=== PATIENT | female | born 1955 | race Caucasian/White ===

== ENCOUNTER 2019-09-26 09:31 | Emergency (ER) | payer OTHER ==
--- OUTSIDE RECORDS SUMMARY | 2019-09-26 09:34 | XMS REPORT ---
:1955 Author Organization [employer] Care Team Providers Name Role Phone Vignesh Stoddard Provider Role Unavailable Allergies No Known Allergies Problems Problem Type Condition Code Onset Dates Condition Status Problem Morbid obesity due to excess E66.01 Active calories Problem Left sciatic nerve pain M54.32 Active Problem Primary osteoarthritis of both M17.0 Active knees Problem Vaginal atrophy N95.2 Active Problem Pain in female genitalia on N94.10 Active intercourse Problem Arthritis of left knee M17.12 Active Problem Pain in joint of left knee M25.562 Active Medications No Known Medications Results No Known Results Summary Purpose [employer] Submission
[2019-09-26] MEDS ORDERED: NA CHLORIDE 0.9% 1,000 ML ONE (10:24)
[2019-09-26] MEDS ORDERED: IPRATROPIUM BROM 0.5MG/2.5ML ONE (10:24)
[2019-09-26] MEDS ORDERED: LEVALBUTEROL 1.25 MG/3 ML NEB ONE (10:24)
[2019-09-26 10:37] LABS: Absolute Lymphocytes (CBC) 1.2 K/uL (0.7-4.9); Basophils % 0.8 % (0-1.3); Hematocrit 38.3 % (36.0-45.0); Lymphocytes % 18.8 % (15.3-44.8); MPV 9.9 fL (7.6-11.3); RBC Red Blood Cell Count 4.27 M/uL (3.86-4.86)
--- NOTE | 2019-09-26 10:38 | RAD REPORT ---
EXAM DESCRIPTION: Roman Single View09/26/2019 10:25 am CLINICAL HISTORY: Cough COMPARISON: 2015 FINDINGS: The lungs appear clear of acute infiltrate. The heart is normal size IMPRESSION: No acute abnormalities displayed
[2019-09-26 10:42] LABS: Protime INR 0.97
[2019-09-26 10:54] LABS: ALT/SGPT 26 U/L (12-78); AST/SGOT 19 U/L (15-37); Albumin 3.5 g/dL (3.4-5.0); Alkaline Phosphatase 57 U/L (45-117); BUN Blood Urea Nitrogen 17 mg/dL (7-18); Bicarbonate 26 mmol/L (21-32); Bilirubin Direct < 0.1 mg/dL (0-0.2); Bilirubin Total 0.3 mg/dL (0.2-1.0); Glucose Level 116 mg/dL (74-106); Magnesium 1.7 mg/dL (1.8-2.4); NT PRO-BNP 55 pg/mL (<125); Potassium 3.9 mmol/L (3.5-5.1); Protein, Total 7.4 g/dL (6.4-8.2); Sodium Level 142 mmol/L (136-145); Troponin (Emerg Dept Use Only) < 0.02 ng/mL (0.0-0.045)
[2019-09-26 11:03] LABS: Urine Blood TRACE (NEG); Urine Glucose 2+ (NEG); Urine Protein NEGATIVE (NEG); Urine Specific Gravity 1.025 (1.005-1.030); Urine pH 5.5 (5.0-7.0)
[2019-09-26] MEDS ORDERED: MAGNESIUM SULFATE 1 gm IVPB 1 GM/100 ML BAG IV ONE (11:29)
--- NOTE | 2019-09-26 11:32 | RAD REPORT ---
EXAM DESCRIPTION: CT - Soft Tissue Neck W/Contr - 09/26/2019 11:16 am CLINICAL HISTORY: Neck pain with sore throat COMPARISON: None. TECHNIQUE: Computed axial tomography of the neck was obtained. 50 cc Isovue 300 was administered in travenously. Coronal and sagittal reconstruction was performed. All CT scans are performed using dose optimization technique as appropriate and may include automated exposure control or mA/KV adjustment according to patient size. FINDINGS: There is questionable small amount of soft tissue within the right vallecula. Remainder of the pharynx, tongue base, larynx and subglottic trachea appear unremarkable The parotid, submandibular and thyroid glands appear unremarkable. No lymphadenopathy is seen The sinuses and mastoids are clear. IMPRESSION: Questionable small amount of soft tissue within the right vallecula. Often this is secon jairon to incomplete distention. A subtle mass can also result in this appearance. Followup imaging wit h the patient prone can sometimes differentiate between the 2 possibilities. Otherwise unremarkable exam
--- NOTE | 2019-09-26 12:12 | ER ---
Nurse's Notes [facility] Name: Celeste Samaniego Age: 64 yrs Sex: Female : 1955 Arrival Date: 09/26/2019 Time: 09:34 Bed 4 Private MD: Diagnosis: Acute pharyngitis;Type 2 diabetes mellitus;Hypomagnesemia;Influenza due to certain identified influenza viruses Presentation: 09/26 09:47 Presenting complaint: Patient states: Diagnosed with the flu 2 days ago, but throat ss swelling and difficulty breathing that began 2 days ago. Transition of care: patient was not received from another setting of care. Onset of symptoms was September 25, 2019. Risk Assessment: Do you want to hurt yourself or someone else? Patient reports no desire to harm self or others. Initial Sepsis Screen: Does the patient meet any 2 criteria? No. Patient's initial sepsis screen is negative. Does the patient have a suspected source of infection? No. Patient's initial sepsis screen is negative. Care prior to arrival: None. 09:47 Acuity: KITA 3 ss 09:47 Method Of Arrival: Ambulatory ss Historical: - Allergies: 09:50 Codeine; ss 09:50 mushrooms; ss - PMHx: 09:50 Diabetes - NIDDM; Hyperlipidemia; Hypertension; Hypothyroidism; ss - PSHx: 09:50 knee replacement; ss - Immunization history:: Adult Immunizations up to date. - Social history:: Smoking status: Patient/guardian denies using tobacco. - Ebola Screening: : Patient denies exposure to infectious person Patient denies travel to an Ebola-affected area in the 21 days before illness onset. - Family history:: not pertinent. Screenin:39 Abuse screen: Denies threats or abuse. Denies injuries from another. Nutritional ph screening: No deficits noted. Tuberculosis screening: No symptoms or risk factors identified. Fall Risk None identified. Assessment: 10:36 General: Appears in no apparent distress. comfortable, well groomed, Behavior is calm, ph cooperative, appropriate for age, Denies fever. Pain: Complains of pain in throat. Neuro: Level of Consciousness is awake, alert, obeys commands, Oriented to person, place, time, situation. Cardiovascular: Reports fatigue, shortness of breath, Denies chest pain, nausea, vomiting, Capillary refill < 3 seconds in bilateral fingers Patient's skin is warm and dry. Respiratory: Airway is patent Respiratory effort is even, unlabored, Respiratory pattern is regular, symmetrical, Breath sounds are clear bilaterally. Denies cough. GI: Patient currently denies abdominal pain, diarrhea, nausea, vomiting. EENT: Reports pain when swallowing. Derm: Skin is intact, is healthy with good turgor, Skin is pink, warm \T\ dry. Musculoskeletal: Circulation, motion, and sensation intact. Range of motion: intact in all extremities. 11:30 Reassessment: Patient appears in no apparent distress at this time. Patient and/or ph family updated on plan of care and expected duration. Pain level reassessed. Patient is alert, oriented x 3, equal unlabored respirations, skin warm/dry/pink. 12:18 Reassessment: Patient appears in no apparent distress at this time. Patient and/or ph family updated on plan of care and expected duration. Pain level reassessed. Patient is alert, oriented x 3, equal unlabored respirations, skin warm/dry/pink. D/C pending completion of IV meds. 12:37 Reassessment: Patient appears in no apparent distress at this time. awaiting IV sg medication to complete infusion prior to discharge to home. Vital Signs: 09:50 BP 134 / 54; Pulse 90; Resp 16; Temp 97.7(TE); Pulse Ox 97% ; Weight 99.79 kg; Height 5 ss ft. 3 in. (160.02 cm); Pain 6/10; 10:41 BP 123 / 53; Pulse 78; Resp 18; Pulse Ox 100% on Nebulizer Mask; ph 12:18 BP 128 / 56; Pulse 76; Resp 18; Temp 97.8; Pulse Ox 98% on R/A; ph 13:30 BP 127 / 58; Pulse 77; Resp 18; Temp 97.5; Pulse Ox 99% on R/A; ph 09:50 Body Mass Index 38.97 (99.79 kg, 160.02 cm) ED Course: 09:34 Patient arrived in ED. ag5 09:48 Emerson Crouch MD is Attending Physician. latrice 09:49 Triage completed. ss 09:50 Arm band placed on right wrist. 09:56 Betty Moore RN is Primary Nurse. ph 10:15 Inserted saline lock: 22 gauge in right antecubital area, using aseptic technique. ph 10:23 XRAY Chest (1 view) In Process Unspecified. EDMS 10:40 Patient has correct armband on for positive identification. Placed in gown. Bed in low ph position. Call light in reach. Side rails up X 1. Pulse ox on. NIBP on. Door closed. Warm blanket given. Pillow given. 10:44 No provider procedures requiring assistance completed. ph 11:16 Soft Tissue Neck W/Contr CT In Process Unspecified. EDMS Administered Medications: 10:30 Drug: Xopenex 1.25 mg Route: Inhalation; ph 12:19 Follow up: Response: No adverse reaction ph 10:30 Drug: AtroVENT Aerosol 0.5 mg Route: Inhalation; ph 12:19 Follow up: Response: No adverse reaction ph 10:31 Drug: NS 0.9% 1000 ml Route: IV; Rate: 1 bolus; Site: right antecubital; ph 12:19 Follow up: Response: No adverse reaction; IV Status: Completed infusion ph 12:10 Drug: Magnesium Sulfate 1 grams Route: IVPB; Infused Over: 1 hrs; Site: right sg antecubital; 13:26 Follow up: Response: No adverse reaction; IV Status: Completed infusion sg 12:10 Drug: Decadron - Dexamethasone 10 mg Route: IVP; Site: right antecubital; sg 12:40 Follow up: Response: No adverse reaction sg 12:10 Drug: Rocephin 1 grams Route: IV; Rate: per protocol; Site: right antecubital; sg 13:00 Follow up: Response: No adverse reaction; IV Status: Completed infusion sg Outcome: 12:12 Discharge ordered by MD. pollard 13:43 Patient left the ED. sg 13:43 Discharged to home ambulatory, with significant other. ph 13:43 Condition: good 13:43 Discharge instructions given to patient, Instructed on discharge instructions, follow up and referral plans. medication usage, Demonstrated understanding of instructions, follow-up care, medications, Prescriptions given X 4. Signatures: Dispatcher [employer] EDMS Donald Graves, Emerson Rutledge RN, MD MD cha Smirch, Shelby, RN RN Betty Moore RN RN Ginny Bernal ag5
--- NOTE | 2019-09-26 12:12 | EDPHYS ---
Physician Documentation [facility] Name: Celeste Samaniego Age: 64 yrs Sex: Female : 1955 Arrival Date: 09/26/2019 Time: 09:34 Bed 4 Private MD: ED Physician Emerson Crouch HPI: 09/26 10:07 This 64 yrs old Female presents to ER via Ambulatory with complaints of Flu latrice Symptoms, Breathing Difficulty. 10:07 The patient has shortness of breath at rest, with light activity. Onset: The latrice symptoms/episode began/occurred 3 day(s) ago. Duration: The symptoms are continuous, and are steadily getting worse. The patient's shortness of breath is aggravated by nothing, is alleviated by nothing. Associated signs and symptoms: Pertinent positives: non-productive cough, dizziness. Severity of symptoms: At their worst the symptoms were mild moderate in the emergency department the symptoms are unchanged. The patient has experienced similar episodes in the past, a few times. Historical: - Allergies: 09:50 Codeine; ss 09:50 mushrooms; ss - PMHx: 09:50 Diabetes - NIDDM; Hyperlipidemia; Hypertension; Hypothyroidism; ss - PSHx: 09:50 knee replacement; ss - Immunization history:: Adult Immunizations up to date. - Social history:: Smoking status: Patient/guardian denies using tobacco. - Ebola Screening: : Patient denies exposure to infectious person Patient denies travel to an Ebola-affected area in the 21 days before illness onset. - Family history:: not pertinent. ROS: 10:07 Constitutional: Negative for fever, chills, and weight loss, Eyes: Negative for injury, latrice pain, redness, and discharge, ENT: Negative for injury, pain, and discharge, Cardiovascular: Negative for chest pain, palpitations, and edema, Abdomen/GI: Negative for abdominal pain, nausea, vomiting, diarrhea, and constipation, Back: Negative for injury and pain, : Negative for injury, bleeding, discharge, and swelling, MS/Extremity: Negative for injury and deformity, Skin: Negative for injury, rash, and discoloration, Neuro: Negative for headache, weakness, numbness, tingling, and seizure, Psych: Negative for depression, anxiety, suicide ideation, homicidal ideation, and hallucinations, Allergy/Immunology: Negative for hives, rash, and allergies, Endocrine: Negative for neck swelling, polydipsia, polyuria, polyphagia, and marked weight changes, Hematologic/Lymphatic: Negative for swollen nodes, abnormal bleeding, and unusual bruising. 10:07 Neck: Positive for pain at rest, swelling, tenderness. 10:07 Respiratory: Positive for cough, "sounds productive". Exam: 10:07 Constitutional: This is a well developed, well nourished patient who is awake, alert, latrice and in no acute distress. Head/Face: Normocephalic, atraumatic. Eyes: Pupils equal round and reactive to light, extra-ocular motions intact. Lids and lashes normal. Conjunctiva and sclera are non-icteric and not injected. Cornea within normal limits. Periorbital areas with no swelling, redness, or edema. Neck: Trachea midline, no thyromegaly or masses palpated, and no cervical lymphadenopathy. Supple, full range of motion without nuchal rigidity, or vertebral point tenderness. No Meningismus. Chest/axilla: Normal chest wall appearance and motion. Nontender with no deformity. No lesions are appreciated. Cardiovascular: Regular rate and rhythm with a normal S1 and S2. No gallops, murmurs, or rubs. Normal PMI, no JVD. No pulse deficits. Abdomen/GI: Soft, non-tender, with normal bowel sounds. No distension or tympany. No guarding or rebound. No evidence of tenderness throughout. Back: No spinal tenderness. No costovertebral tenderness. Full range of motion. Female : Normal external genitalia. Skin: Warm, dry with normal turgor. Normal color with no rashes, no lesions, and no evidence of cellulitis. 10:07 ENT: Mouth: Oral mucosa: moist, Gums: normal with healthy appearance, Tongue: is normal, abscess, is not appreciated, Posterior pharynx: Airway: normal, no evidence of obstruction, Tonsils: with erythema, Uvula: normal, midline, erythema, that is mild, Dental exam: normal, no avulsion, no cellulitis, no dental caries, no fractured teeth, no gum swelling, no injury, no malocclusion, no missing teeth, no pain, no trismus. Vital Signs: 09:50 BP 134 / 54; Pulse 90; Resp 16; Temp 97.7(TE); Pulse Ox 97% ; Weight 99.79 kg; Height 5 ss ft. 3 in. (160.02 cm); Pain 6/10; 10:41 BP 123 / 53; Pulse 78; Resp 18; Pulse Ox 100% on Nebulizer Mask; ph 12:18 BP 128 / 56; Pulse 76; Resp 18; Temp 97.8; Pulse Ox 98% on R/A; ph 13:30 BP 127 / 58; Pulse 77; Resp 18; Temp 97.5; Pulse Ox 99% on R/A; ph 09:50 Body Mass Index 38.97 (99.79 kg, 160.02 cm) ss MDM: 09:48 Patient medically screened. [facility] 10:13 Data reviewed: vital signs, nurses notes, lab test result(s), EKG, radiologic studies, [facility] CT scan, plain films. 09/26 09:49 Order name: Basic Metabolic Panel; Complete Time: 11:07 [facility] 09/26 09:49 Order name: CBC with Diff; Complete Time: 11:07 [facility] 09/26 09:49 Order name: LFT's; Complete Time: 11:07 [facility] 09/26 09:49 Order name: Magnesium; Complete Time: 11:07 [facility] 09/26 09:49 Order name: NT PRO-BNP; Complete Time: 11:07 [facility] 09/26 09:49 Order name: PT-INR; Complete Time: 11:07 [facility] 09/26 09:49 Order name: Troponin (emerg Dept Use Only); Complete Time: 11:07 [facility] 09/26 09:49 Order name: XRAY Chest (1 view); Complete Time: 11:07 [facility] 09/26 10:07 Order name: Strep; Complete Time: 11:07 [facility] 09/26 10:07 Order name: Soft Tissue Neck W/Contr CT; Complete Time: 11:50 [facility] 09/26 10:14 Order name: Urine Dipstick--Ancillary (enter results); Complete Time: 11:07 09/26 11:01 Order name: Throat Culture EDCT 09/26 09:49 Order name: Cardiac monitoring; Complete Time: 09:57 [facility] 09/26 09:49 Order name: EKG - Nurse/Tech; Complete Time: 12:20 [facility] 09/26 09:49 Order name: IV Saline Lock; Complete Time: 10:31 [facility] 01/15 09:49 Order name: Labs collected and sent; Complete Time: 10:31 [facility] 09/26 09:49 Order name: O2 Per Protocol; Complete Time: 09:57 [facility] 09/26 09:49 Order name: O2 Sat Monitoring; Complete Time: 09:57 [facility] 09/26 09:49 Order name: Urine Dipstick-Ancillary (obtain specimen); Complete Time: 10:31 [facility] Administered Medications: 10:30 Drug: Xopenex 1.25 mg Route: Inhalation; ph 12:19 Follow up: Response: No adverse reaction ph 10:30 Drug: AtroVENT Aerosol 0.5 mg Route: Inhalation; ph 12:19 Follow up: Response: No adverse reaction ph 10:31 Drug: NS 0.9% 1000 ml Route: IV; Rate: 1 bolus; Site: right antecubital; ph 12:19 Follow up: Response: No adverse reaction; IV Status: Completed infusion ph 12:10 Drug: Magnesium Sulfate 1 grams Route: IVPB; Infused Over: 1 hrs; Site: right sg antecubital; 13:26 Follow up: Response: No adverse reaction; IV Status: Completed infusion sg 12:10 Drug: Decadron - Dexamethasone 10 mg Route: IVP; Site: right antecubital; sg 12:40 Follow up: Response: No adverse reaction sg 12:10 Drug: Rocephin 1 grams Route: IV; Rate: per protocol; Site: right antecubital; sg 13:00 Follow up: Response: No adverse reaction; IV Status: Completed infusion sg Disposition: 09/26/19 12:12 Discharged to Home. Impression: Acute pharyngitis, Type 2 diabetes mellitus, Hypomagnesemia, Influenza due to certain identified influenza viruses. - Condition is Stable. - Discharge Instructions: Hypomagnesemia, Influenza, Adult, Pharyngitis, Pharyngitis, [id number], Influenza, Adult, Czen-ax-[id number], Sore Throat, [id number]. - Prescriptions for Augmentin 875- 125 mg Oral Tablet - take 1 tablet by ORAL route every 12 hours for 10 days; 20 tablet. Zofran 4 mg Oral Tablet - take 1 tablet by ORAL route every 12 hours As needed; 20 tablet. Medrol (Armond) 4 mg Oral Tablets, Dose Pack - take 1 tablet by ORAL route as directed - follow package instructions; 1 packet. Tamiflu 75 mg Oral Capsule - take 1 tablet by ORAL route every 12 hours for 5 days; 10 tablet. - Medication Reconciliation Form, Thank You Letter, Antibiotic Education, Prescription Opioid Use form. - Follow up: Private Physician; When: 2 - 3 days; Reason: Recheck today's complaints, Continuance of care, Re-evaluation by your physician. - Problem is new. - Symptoms have improved. Signatures: Dispatcher [employer] EDMS Donald Graves RN RN Emerson Flores MD MD cha Smirch, Shelby, RN RN Betty Moore RN RN ph Corrections: (The following items were deleted from the chart) 13:43 12:12 09/26/2019 12:12 Discharged to Home. Impression: Acute pharyngitis; Type 2 sg diabetes mellitus; Hypomagnesemia; Influenza due to certain identified influenza viruses. Condition is Stable. Forms are Medication Reconciliation Form, Thank You Letter, Antibiotic Education, Prescription Opioid Use. Follow up: Private Physician; When: 2 - 3 days; Reason: Recheck today's complaints, Continuance of care, Re-evaluation by your physician. Problem is new. Symptoms have improved. latrice
[2019-09-26] MEDS ORDERED: dexAMETHasone 10 MG/ML VIAL ONE (12:21)
[2019-09-26] MEDS ORDERED: CEFTRIAXONE/SWI 1gm 1 GM/10 ML SYR ONE (12:21)
[2019-09-26 13:59] VITALS: BP 128/56; TEMP 97.8; O2SAT 98
== END 2019-09-26 13:43 | disposition home or self-care (01) ==
LOC: ER 09:31
DX: J10.89 Influenza due to other identified influenza virus with other manifestations (principal); E11.9 Type 2 diabetes mellitus without complications; E83.42 Hypomagnesemia; J02.9 Acute pharyngitis, unspecified; Z88.6 Allergy status to analgesic agent
CPT/HCPCS: 96365; 96361; 96368; 87070; 85025; 80048; 36415; 83735; 85610; 80076; 87081; 81003; 84484; 83880; 70491; 71045; 96375; 99284; Q9967; J3475; J1100; J0696; J7030

== ENCOUNTER 2019-10-01 04:53 | Emergency (ER) | payer OTHER ==
[2019-10-01] MEDS ORDERED: KETOROLAC 30 MG/ML INJ ONE (05:29)
[2019-10-01] MEDS ORDERED: MORPHINE 2 MG/ML SYR ONE (05:29)
[2019-10-01] MEDS ORDERED: NA CHLORIDE 0.9% 500 ML ONE ×2 (05:29→06:53)
[2019-10-01] MEDS ORDERED: ONDANSETRON 4 MG/2 ML VIAL ONE (05:29)
[2019-10-01] MEDS ORDERED: ETOMIDATE 20 MG/10 ML VIAL IV ONE (06:32)
[2019-10-01] MEDS ORDERED: MIDAZOLAM HCL 2 MG/2 ML INJ ONE ×2 (06:32)
--- NOTE | 2019-10-01 07:08 | ER ---
Nurse's Notes [facility] Name: Celeste Samaniego Age: 64 yrs Sex: Female : 1955 Arrival Date: 10/01/2019 Time: 04:55 Bed 5 Private MD: Diagnosis: Colles' fracture of right radius-reduced Presentation: 10/01 05:09 Presenting complaint: Patient states: she was drinking a glass of water before bed and bb her left knee buckled causing her to fall backward she reached out with her right arm and injured her right wrist pt denies LOC, denies hitting her head. Care prior to arrival: None. Mechanism of Injury: Fall from standing position. Trauma event details: Injury occurred in the [facility], Injury occurred: at home. Injury occurred: October 01, 2019. 05:09 Acuity: KITA 4 bb 05:09 Method Of Arrival: Wheelchair bb 05:13 Transition of care: patient was not received from another setting of care. Onset of bb symptoms was October 01, 2019. Risk Assessment: Do you want to hurt yourself or someone else? Patient reports no desire to harm self or others. Initial Sepsis Screen: Does the patient meet any 2 criteria? No. Patient's initial sepsis screen is negative. Does the patient have a suspected source of infection? No. Patient's initial sepsis screen is negative. Trauma Activation: Not Applicable Physician: ED Physician; Name: ; Notified At: ; Arrived At: Physician: General Surgeon; Name: ; Notified At: ; Arrived At: Physician: Radiology; Name: ; Notified At: ; Arrived At: Physician: Respiratory; Name: ; Notified At: ; Arrived At: Physician: Lab; Name: ; Notified At: ; Arrived At: Historical: - Allergies: 05:14 Codeine; bb 05:14 mushrooms; bb - PMHx: 05:14 Diabetes - NIDDM; Hyperlipidemia; Hypertension; Hypothyroidism; bb - Immunization history: Last tetanus immunization: unknown. - Social history:: Smoking status: Patient denies any tobacco usage or history of. - Ebola Screening: : No symptoms or risks identified at this time. - Family history:: not pertinent. Screenin:09 Abuse screen: Denies threats or abuse. Tuberculosis screening: No symptoms or risk bb factors identified. Primary Survey: 05:09 NO uncontrolled hemorrhage observed. A: The patient is alert. Airway: patent. bb Breathing/Chest: Respiratory pattern: regular, Respiratory effort: spontaneous, unlabored, Chest inspection: symmetrical rise and fall of the chest. Circulation: Heart tones present. Disability Alert. Exposure/Environment: All clothing and personal items were removed. Forensic evidence collection is not deemed to be indicated at this time. Items placed in patient belonging bag. 06:00 Reassessment Airway Airway Patent Oxygen No O2 Breathing/Chest Respiratory pattern jb4 Regular Respiratory effort Spontaneous Unlabored Circulation Color [place] Temperature Warm Dry. Secondary Survey: 05:09 Musculoskeletal: Reports pain in right wrist. bb Assessment: 05:10 General: Appears in no apparent distress. uncomfortable, Behavior is calm, cooperative, jb4 appropriate for age. Pain: Complains of pain in right wrist Pain does not radiate. Pain currently is 7 out of 10 on a pain scale. Quality of pain is described as throbbing. Neuro: Level of Consciousness is awake, alert, obeys commands, Oriented to person, place, time, situation. Cardiovascular: Patient's skin is warm and dry. Respiratory: Airway is patent Respiratory effort is even, unlabored, Respiratory pattern is regular, symmetrical. GI: No signs and/or symptoms were reported involving the gastrointestinal system. : No signs and/or symptoms were reported regarding the genitourinary system. EENT: No signs and/or symptoms were reported regarding the EENT system. Derm: Skin is intact, Skin is pink, warm \T\ dry. Musculoskeletal: Circulation, motion, and sensation intact. 06:00 Reassessment: Patient appears in no apparent distress at this time. Patient and/or jb4 family updated on plan of care and expected duration. Pain level reassessed. Patient is alert, oriented x 3, equal unlabored respirations, skin warm/dry/pink. 06:59 Reassessment: Patient appears in no apparent distress at this time. Patient and/or jb4 family updated on plan of care and expected duration. Pain level reassessed. Patient is alert, oriented x 3, equal unlabored respirations, skin warm/dry/pink. Conscious sedation initiated. Vital Signs: 05:09 BP 126 / 55; Pulse 65; Resp 16 S; Temp 97.8(O); Pulse Ox 99% on R/A; Weight 99.79 kg bb (R); Height 5 ft. 3 in. (160.02 cm) (R); Pain 8/10; 06:00 BP 140 / 61; Pulse 62; Resp 18; Pulse Ox 98% on R/A; jb4 07:00 BP 145 / 72; Pulse 66; Resp 11; Pulse Ox 100% on NC; jb4 05:09 Body Mass Index 38.97 (99.79 kg, 160.02 cm) bb Etlan Coma Score: 05:09 Eye Response: spontaneous(4). Verbal Response: oriented(5). Motor Response: obeys bb commands(6). Total: 15. 06:00 Eye Response: spontaneous(4). Verbal Response: oriented(5). Motor Response: obeys jb4 commands(6). Total: 15. Trauma Score (Adult): 05:09 Eye Response: spontaneous(1); Verbal Response: oriented(1); Motor Response: obeys bb commands(2); Systolic BP: > 89 mm Hg(4); Respiratory Rate: 10 to 29 per min(4); Etlan Score: 15; Trauma Score: 12 07:00 Eye Response: spontaneous(1); Verbal Response: oriented(1); Motor Response: obeys jb4 commands(2); Systolic BP: > 89 mm Hg(4); Respiratory Rate: 10 to 29 per min(4); Ari Score: 15; Trauma Score: 12 ED Course: 04:55 Patient arrived in ED. cl3 05:01 Emerson Crouch MD is Attending Physician. latrice 05:09 Patient has correct armband on for positive identification. Bed in low position. Call bb light in reach. Side rails up X 1. Adult w/ patient. Family accompanied patient. Pulse ox on. NIBP on. 05:09 Patient maintains SpO2 saturation greater than 95% on room air. bb 05:11 Triage completed. bb 05:14 Arm band placed on Patient placed in an exam room, on a stretcher, on pulse oximetry. bb 05:19 Naren Gardner, YVONNE is Primary Nurse. jb4 05:24 Inserted saline lock: 20 gauge in left antecubital area, using aseptic technique. bb 05:57 Wrist Right 3 View XRAY In Process Unspecified. EDMS 07:08 Bay Doyle MD is Referral Physician. latrice 07:13 Wrist Right 3 View XRAY: post reduc In Process Unspecified. EDMS Administered Medications: 05:38 Drug: NS 0.9% 500 ml Route: IV; Rate: bolus; Site: left antecubital; jb4 06:00 Follow up: Response: No adverse reaction; IV Status: Completed infusion; IV Intake: jb4 500ml 05:38 Drug: Zofran 4 mg Route: IVP; Site: left antecubital; jb4 06:00 Follow up: Response: No adverse reaction jb4 05:40 Drug: TORadol 30 mg Route: IVP; Site: left antecubital; jb4 07:29 Follow up: Response: No adverse reaction; Pain is decreased jb4 05:41 Drug: morphine 2 mg Route: IVP; Site: left antecubital; jb4 06:00 Follow up: Response: No adverse reaction; Pain is decreased; RASS: Alert and Calm (0) jb4 06:59 Drug: Versed 2 mg Route: IVP; Site: left antecubital; jb4 07:27 Follow up: Response: No adverse reaction jb4 07:00 Drug: Versed 1 mg {Note: Administered 1 mg per ED physician .} Route: IVP; Site: left [facility] antecubital; 07:27 Follow up: Response: No adverse reaction jb4 07:01 Drug: Etomidate 8 mg {Note: Administered 8 mg per ED physician.} Route: IVP; Site: left 4 antecubital; 07:27 Follow up: Response: No adverse reaction jb4 07:28 Not Given (Physician Discretion): Etomidate 10 mg IVP once jb4 Intake: 05:09 PO: 0ml; Total: 0ml. bb 06:00 IV: 500ml; Total: 500ml. jb4 Outcome: 07:08 Discharge ordered by MD. pollard 08:10 Patient left the ED. sg Signatures: Dispatcher [employer] EDMS Donald Graves RN RN sg Anderson, Corey, MD MD cha Ballard, Brenda, RN RN Naren Goode RN RN Margot Nickerson cl3
--- NOTE | 2019-10-01 07:09 | EDPHYS ---
Physician Documentation [facility] Name: Celeste Samaniego Age: 64 yrs Sex: Female : 1955 Arrival Date: 10/01/2019 Time: 04:55 Bed 5 Private MD: ED Physician Emerson Crouch HPI: 10/01 05:19 This 64 yrs old Female presents to ER via Wheelchair with complaints of Fall latrice Injury, Wrist Injury. 05:19 Details of fall: The patient fell from an upright position, while walking. Onset: The latrice symptoms/episode began/occurred just prior to arrival. Associated injuries: The patient sustained right wrist, decreased range of motion. Severity of symptoms: At their worst the symptoms were moderate, in the emergency department the symptoms are unchanged. The patient has not experienced similar symptoms in the past. Historical: - Allergies: 05:14 Codeine; bb 05:14 mushrooms; bb - PMHx: 05:14 Diabetes - NIDDM; Hyperlipidemia; Hypertension; Hypothyroidism; bb - Immunization history: Last tetanus immunization: unknown. - Social history:: Smoking status: Patient denies any tobacco usage or history of. - Ebola Screening: : No symptoms or risks identified at this time. - Family history:: not pertinent. ROS: 05:19 Constitutional: Negative for fever, chills, and weight loss, Eyes: Negative for injury, latrice pain, redness, and discharge, ENT: Negative for injury, pain, and discharge, Neck: Negative for injury, pain, and swelling, Cardiovascular: Negative for chest pain, palpitations, and edema, Respiratory: Negative for shortness of breath, cough, wheezing, and pleuritic chest pain, Abdomen/GI: Negative for abdominal pain, nausea, vomiting, diarrhea, and constipation, Back: Negative for injury and pain, : Negative for injury, bleeding, discharge, and swelling, Skin: Negative for injury, rash, and discoloration, Neuro: Negative for headache, weakness, numbness, tingling, and seizure, Psych: Negative for depression, anxiety, suicide ideation, homicidal ideation, and hallucinations, Allergy/Immunology: Negative for hives, rash, and allergies, Endocrine: Negative for neck swelling, polydipsia, polyuria, polyphagia, and marked weight changes, Hematologic/Lymphatic: Negative for swollen nodes, abnormal bleeding, and unusual bruising. 05:19 MS/extremity: Positive for decreased range of motion, pain, swelling, tenderness, of the dorsal aspect of right wrist and palmar aspect of right wrist. Exam: 05:19 Constitutional: This is a well developed, well nourished patient who is awake, alert, latrice and in no acute distress. Head/Face: Normocephalic, atraumatic. Eyes: Pupils equal round and reactive to light, extra-ocular motions intact. Lids and lashes normal. Conjunctiva and sclera are non-icteric and not injected. Cornea within normal limits. Periorbital areas with no swelling, redness, or edema. ENT: Nares patent. No nasal discharge, no septal abnormalities noted. Tympanic membranes are normal and external auditory canals are clear. Oropharynx with no redness, swelling, or masses, exudates, or evidence of obstruction, uvula midline. Mucous membranes moist. Neck: Trachea midline, no thyromegaly or masses palpated, and no cervical lymphadenopathy. Supple, full range of motion without nuchal rigidity, or vertebral point tenderness. No Meningismus. Chest/axilla: Normal chest wall appearance and motion. Nontender with no deformity. No lesions are appreciated. Cardiovascular: Regular rate and rhythm with a normal S1 and S2. No gallops, murmurs, or rubs. Normal PMI, no JVD. No pulse deficits. Respiratory: Lungs have equal breath sounds bilaterally, clear to auscultation and percussion. No rales, rhonchi or wheezes noted. No increased work of breathing, no retractions or nasal flaring. Abdomen/GI: Soft, non-tender, with normal bowel sounds. No distension or tympany. No guarding or rebound. No evidence of tenderness throughout. Back: No spinal tenderness. No costovertebral tenderness. Full range of motion. Skin: Warm, dry with normal turgor. Normal color with no rashes, no lesions, and no evidence of cellulitis. Neuro: Awake and alert, GCS 15, oriented to person, place, time, and situation. Cranial nerves II-XII grossly intact. Motor strength 5/5 in all extremities. Sensory grossly intact. Cerebellar exam normal. Normal gait. Psych: Awake, alert, with orientation to person, place and time. Behavior, mood, and affect are within normal limits. 05:19 Musculoskeletal/extremity: Extremities: ROM: limited active range of motion, limited passive range of motion, limited active range of motion due to pain, limited passive range of motion due to pain, Circulation is intact in all extremities. Sensation intact. Compartment Syndrome exam of affected extremity: is normal. Vital Signs: 05:09 BP 126 / 55; Pulse 65; Resp 16 S; Temp 97.8(O); Pulse Ox 99% on R/A; Weight 99.79 kg bb (R); Height 5 ft. 3 in. (160.02 cm) (R); Pain 8/10; 06:00 BP 140 / 61; Pulse 62; Resp 18; Pulse Ox 98% on R/A; jb4 07:00 BP 145 / 72; Pulse 66; Resp 11; Pulse Ox 100% on NC; jb4 05:09 Body Mass Index 38.97 (99.79 kg, 160.02 cm) bb Ari Coma Score: 05:09 Eye Response: spontaneous(4). Verbal Response: oriented(5). Motor Response: obeys bb commands(6). Total: 15. 06:00 Eye Response: spontaneous(4). Verbal Response: oriented(5). Motor Response: obeys jb4 commands(6). Total: 15. Trauma Score (Adult): 05:09 Eye Response: spontaneous(1); Verbal Response: oriented(1); Motor Response: obeys bb commands(2); Systolic BP: > 89 mm Hg(4); Respiratory Rate: 10 to 29 per min(4); Ari Score: 15; Trauma Score: 12 07:00 Eye Response: spontaneous(1); Verbal Response: oriented(1); Motor Response: obeys jb4 commands(2); Systolic BP: > 89 mm Hg(4); Respiratory Rate: 10 to 29 per min(4); [place] Score: 15; Trauma Score: 12 MDM: 05:01 Patient medically screened. [facility] 05:22 Data reviewed: vital signs, nurses notes, radiologic studies, plain films. [facility] 10/01 05:13 Order name: Wrist Right 3 View XRAY [facility] 10/01 06:09 Order name: Wrist Right 3 View XRAY: post reduc [facility] 10/01 05:13 Order name: IV Saline Lock; Complete Time: 05:44 [facility] 10/01 06:09 Order name: Sling; Complete Time: 07:18 [facility] 10/01 06:09 Order name: Ice pack; Complete Time: 06:24 [facility] 10/01 06:42 Order name: Splint - Sugar Tong - Forearm; Complete Time: 07:18 [facility] Administered Medications: 05:38 Drug: NS 0.9% 500 ml Route: IV; Rate: bolus; Site: left antecubital; jb4 06:00 Follow up: Response: No adverse reaction; IV Status: Completed infusion; IV Intake: jb4 500ml 05:38 Drug: Zofran 4 mg Route: IVP; Site: left antecubital; jb4 06:00 Follow up: Response: No adverse reaction jb4 05:40 Drug: TORadol 30 mg Route: IVP; Site: left antecubital; jb4 07:29 Follow up: Response: No adverse reaction; Pain is decreased jb4 05:41 Drug: morphine 2 mg Route: IVP; Site: left antecubital; jb4 06:00 Follow up: Response: No adverse reaction; Pain is decreased; RASS: Alert and Calm (0) 4 06:59 Drug: Versed 2 mg Route: IVP; Site: left antecubital; jb4 07:27 Follow up: Response: No adverse reaction 4 07:00 Drug: Versed 1 mg {Note: Administered 1 mg per ED physician .} Route: IVP; Site: left 4 antecubital; 07:27 Follow up: Response: No adverse reaction jb4 07:01 Drug: Etomidate 8 mg {Note: Administered 8 mg per ED physician.} Route: IVP; Site: left [facility] antecubital; 07:27 Follow up: Response: No adverse reaction jb4 07:28 Not Given (Physician Discretion): Etomidate 10 mg IVP once jb4 Disposition: 10/01/19 07:08 Discharged to Home. Impression: Colles' fracture of right radius - reduced. - Condition is Stable. - Discharge Instructions: Colles Fracture, Forearm Fracture, Wrist Fracture Treated With Immobilization, Forearm Fracture, [id number], Wrist Fracture Treated With Immobilization, [id number]. - Prescriptions for Tramadol 50 mg Oral Tablet - take 1 tablet by ORAL route every 8 hours as needed; 30 tablet. Motrin IB 200 mg Oral Tablet - take 2 tablet by ORAL route every 6 hours As needed as needed with food; 30 tablet. - Medication Reconciliation Form, Thank You Letter, Antibiotic Education, Prescription Opioid Use form. - Follow up: Private Physician; When: 2 - 3 days; Reason: Recheck today's complaints, Continuance of care, Re-evaluation by your physician. Follow up: Dr. Bay Doyle; When: 2 - 3 days; Reason: Recheck today's complaints, Continuance of care, Re-evaluation by your physician. - Problem is new. - Symptoms have improved. Signatures: Dispatcher [employer] EDMS Donald Graves RN RN sg Anderson, Corey, MD MD cha Ballard, Brenda, RN RN Naren Goode RN RN jb4 Corrections: (The following items were deleted from the chart) 08:10 07:08 10/01/2019 07:08 Discharged to Home. Impression: Colles' fracture of right radius sg - reduced. Condition is Stable. Discharge Instructions: Colles Fracture, Forearm Fracture, Wrist Fracture Treated With Immobilization, Forearm Fracture, [id number], Wrist Fracture Treated With Immobilization, [id number]. Prescriptions for Tramadol 50 mg Oral Tablet - take 1 tablet by ORAL route every 8 hours as needed; 30 tablet, Motrin IB 200 mg Oral Tablet - take 2 tablet by ORAL route every 6 hours As needed as needed with food; 30 tablet. and Forms are Medication Reconciliation Form, Thank You Letter, Antibiotic Education, Prescription Opioid Use. Follow up: Private Physician; When: 2 - 3 days; Reason: Recheck today's complaints, Continuance of care, Re-evaluation by your physician. Follow up: Dr. Bay Doyle; When: 2 - 3 days; Reason: Recheck today's complaints, Continuance of care, Re-evaluation by your physician. Problem is new. Symptoms have improved. latrice
--- NOTE | 2019-10-01 08:24 | RAD REPORT ---
EXAM DESCRIPTION: RAD - Wrist Right 3 View - 10/01/2019 5:57 am CLINICAL HISTORY: PAIN Pain COMPARISON: No comparisons FINDINGS: Fracture of the distal radius is seen with mild impaction. Mild soft tissue swelling is e vident. No dislocation seen.
[2019-10-01 08:28] VITALS: TEMP 97.8
--- NOTE | 2019-10-01 08:28 | RAD REPORT ---
EXAM DESCRIPTION: RAD - Wrist Right 3 View - 10/01/2019 7:20 am CLINICAL HISTORY: PAIN Pain COMPARISON: Wrist Right 3 View dated 10/01/2019 FINDINGS: Previously noted distal radius fracture has been reduced and placed within a splint. Bone detail is thus limited. No dislocation.
[2019-10-01 08:47] VITALS: BP 145/72; O2SAT 100
== END 2019-10-01 08:10 | disposition home or self-care (01) ==
LOC: ER 04:53
PROC: 2W3CX1Z Immobilization of Right Lower Arm using Splint (ICD-10-PCS; principal; 2019-10-01)
DX: S52.531A Colles' fracture of right radius, initial encounter for closed fracture (principal); I10 Essential (primary) hypertension; W19.XXXA Unspecified fall, initial encounter; Y93.01 Activity, walking, marching and hiking; Y92.9 Unspecified place or not applicable; Z88.5 Allergy status to narcotic agent; Z91.018 Allergy to other foods
CPT/HCPCS: 73110 ×2; 96375; 96374; 99284; 29125; J2250 ×2; J2270; J7040 ×2; J2405

== ENCOUNTER 2023-01-11 09:35 | Emergency (ER) | payer OTHER ==
--- OUTSIDE RECORDS SUMMARY | 2023-01-11 09:47 | XMS REPORT | Continuity of Care Document ---
:1955 Author Organization [facility] t Address [address] [place] [address] Care Team Providers Name Role Phone VIANCA VAN Primary Care Physician Unavailable Autumn Quintana Attending Clinician Unavailable Enrique, Na Jen Attending Clinician Unavailable Ivonne Edwards Attending Clinician Unavailable Therapy, [facility] Attending Clinician Unavailable Terence Branch MD Attending Clinician TERENCE BRANCH Attending Clinician Unavailable Doctor Unassigned, [place] Attending Clinician Unavailable RADIOLOGY Attending Clinician Unavailable Radiology Attending Clinician Unavailable VIANCA VAN Admitting Clinician Unavailable Payers Payer Name Policy Type Policy Number Effective Date Expiration Date S keshav AETNA C1 [id number] [facility] MEDICARE [id number] [facility] NOVITAS [facility] AETNA C1 [id number] [facility] MEDICARE [id number] [facility] Problems Condition Condition Condition Status Onset Resolution Last Treating Co mments Source Name Details Category Date Date Treatment Clinician Date [id number] Vaginal Problem Commo n atrophy Spirit [facility] SI - Stress Problem Common Stress incontinen Spirit incontinen ce - [facility] ce [facility] [id number] Painful Problem Commo n bladder Spirit spasm [facility] [id number] Voiding Problem Commo n dysfunctio [facility] n [facility] [id number] Vaginal Problem Common dryness, Spirit menopausal [facility] [id number] Dysuria Problem Common [facility] [id number] Recurrent Problem Com mon UTI [facility] [id number] Incomplete Problem Co mmon emptying Spirit of bladder [facility] [id number] OAB Problem Common (overactiv Spirit e bladder) [facility] [id number] Arthritis Problem Co mmon [id number] of left Spirit knee [facility] [id number] Dyspareuni Problem Com mon a in Spirit female [facility] [id number] Left Problem Common sciatic [facility] nerve pain [facility] [id number] Urge Problem Common incontinen [facility] [id number] Pain in Problem Common joint of Spirit left knee [facility] [id number] Primary Problem Commo n osteoarthr Spirit itis of [facility] both knees [facility] [id number] Morbid Problem Common obesity Spirit due to - [facility] excess [facility] Essential Essential Problem Com mon hypertensi hypertensi Sp radha on on [facility] Hyperlipid Hyperlipid Problem C ommon emia emia [facility] Hyperglyce Cont[facility] type 2 [facility] type 2 diabetes [facility] diabetes mellitus [facility] hyperglyce [facility] without long-term current use of insulin Acquired Acquired Problem Commo n hypothyroi hypothyroi Sp radha dism dism [facility] Gastroesop G[facility]esop [facility]al [facility] reflux reflux - [facility] disease disease [facility] Seasonal Chronic Problem Common allergic seasonal [facility] rhinitis allergic [facility] rhinitis [facility] [id number] Mixed Problem Common incontinen Spirit ce [facility] Allergies, Adverse Reactions, Alerts Allergy Allergy Status Severity Reaction(s) Onset Inactive Treating Comm ents Source Name Type Date Date Clinician CODEINE DRUG Active Rash [facility] INGREDI 06-11 ity of 00:00: [address] Mushroom Mushroom Active Unknown Commo n [facility] Codeine Codeine Active dizziness Commo n [facility] NO KNOWN Drug Active Univers ALLERGIE Class ity of S [facility] Social History Social Habit Start Date Stop Date Quantity Comments Source History of Tobacco Use Co mmon [facility] Sex Assigned At Com mon [facility] Exposure to SARS-CoV-2 Not sure Un [facility] (event) [facility] Smoking Status Start Date Stop Date Source Unknown if ever smoked [facility] Never Smoker Common [facility] Medications Ordered Filled Start Stop Current Ordering Indication Dosage Frequency Signature Comments Components Source Medication Medication Date Date Medication? Clinician (SIG) Name Name Macrobid Macrobid 2021-09- No 1{capsu BID Macrobid 100 MG 100 MG 10-14 le_with 100 MG 00:00: 00:00 _food} 00 :00 Macrobid Macrobid 2021-09- No 1{capsu BID Macrobid 100 MG 100 MG 10-14 le_with 100 MG 00:00: 00:00 _food} 00 :00 Atorvastati Atorvastati No 1{table QD Atorvastat n Calcium n Calcium 9-06 t} in Calcium 40 MG 40 MG 00:00: 40 MG 00 Atorvastati Atorvastati No 1{table QD Atorvastat n Calcium n Calcium 9-06 t} in Calcium 40 MG 40 MG 00:00: 40 MG 00 Atorvastati Atorvastati No 1{table QD Atorvastat n Calcium n Calcium 9-06 t} in Calcium 40 MG 40 MG 00:00: 40 MG 00 Atorvastati Atorvastati No 1{table QD Atorvastat n Calcium n Calcium 9-06 t} in Calcium 40 MG 40 MG 00:00: 40 MG 00 Atorvastati Atorvastati No 1{table QD Atorvastat n Calcium n Calcium 9-06 t} in Calcium 40 MG 40 MG 00:00: 40 MG 00 Atorvastati Atorvastati No 1{table QD Atorvastat n Calcium n Calcium 9-06 t} in Calcium 40 MG 40 MG 00:00: 40 MG 00 Atorvastati Atorvastati No 1{table QD Atorvastat n Calcium n Calcium 05-18 t} in Calcium 40 MG 40 MG 00:00: 40 MG 00 Atorvastati Atorvastati No 1{table QD Atorvastat n Calcium n Calcium 05-18 t} in Calcium 40 MG 40 MG 00:00: 40 MG 00 Atorvastati Atorvastati No 1{table QD Atorvastat n Calcium n Calcium 05-18 t} in Calcium 40 MG 40 MG 00:00: 40 MG 00 Atorvastati Atorvastati No 1{table QD Atorvastat n Calcium n Calcium 05-18 t} in Calcium 40 MG 40 MG 00:00: 40 MG 00 Trulicity Trulicity 2022- No Trulicity 0.75 0.75 05-18 03-04 0.75 MG/0.5ML MG/0.5ML 00:00: 00:00 MG/0.5ML 00 :00 Trulicity Trulicity 2022- No Trulicity 0.75 0.75 05-18 03-04 0.75 MG/0.5ML MG/0.5ML 00:00: 00:00 MG/0.5ML 00 :00 Trulicity Trulicity 2022- No Trulicity 0.75 0.75 05-18 03-04 0.75 MG/0.5ML MG/0.5ML 00:00: 00:00 MG/0.5ML 00 :00 Trulicity Trulicity 2022- No Trulicity 0.75 0.75 05-18 03-04 0.75 MG/0.5ML MG/0.5ML 00:00: 00:00 MG/0.5ML 00 :00 Trulicity Trulicity 2022- No Trulicity 0.75 0.75 05-18 03-04 0.75 MG/0.5ML MG/0.5ML 00:00: 00:00 MG/0.5ML 00 :00 Trulicity Trulicity 2022- No Trulicity 0.75 0.75 05-18-04 0.75 MG/0.5ML MG/0.5ML 00:00: 00:00 MG/0.5ML 00 :00 Trulicity Trulicity 2022- No Trulicity 0.75 0.75 05-18-04 0.75 MG/0.5ML MG/0.5ML 00:00: 00:00 MG/0.5ML 00 :00 Trulicity Trulicity 2022- No Trulicity 0.75 0.75 05-18-04 0.75 MG/0.5ML MG/0.5ML 00:00: 00:00 MG/0.5ML 00 :00 Trulicity Trulicity 2022- No Trulicity 0.75 0.75 05-18- 0.75 MG/0.5ML MG/0.5ML 00:00: 00:00 MG/0.5ML 00 :00 Trulicity Trulicity 2022- No Trulicity 0.75 0.75 05-18-04 0.75 MG/0.5ML MG/0.5ML 00:00: 00:00 MG/0.5ML 00 :00 Macrobid Macrobid 2021-2021- No 1{capsu BID Macrobid 100 MG 100 MG 03-02 le} 100 MG 00:00: 00:00 00 :00 Alfuzosin Alfuzosin 2021- No 1{table QD Alfuzosin HCl ER 10 HCl ER 10 02-15 t_immed HCl ER 10 MG MG 00:00: 00:00 iately_ MG 00 :00 after_t he_same _meal} Alfuzosin Alfuzosin 2021- No 1{table QD Alfuzosin HCl ER 10 HCl ER 10 02-15 t_immed HCl ER 10 MG MG 00:00: 00:00 iately_ MG 00 :00 after_t he_same _meal} Alfuzosin Alfuzosin 2021-2021- No 1{table QD Alfuzosin HCl ER 10 HCl ER 10 02-15 t_immed HCl ER 10 MG MG 00:00: 00:00 iately_ MG 00 :00 after_t he_same _meal} Alfuzosin Alfuzosin 2021-2021- No 1{table QD Alfuzosin HCl ER 10 HCl ER 10 02-15 t_immed HCl ER 10 MG MG 00:00: 00:00 iately_ MG 00 :00 after_t he_same _meal} Alfuzosin Alfuzosin 2021-2021- No 1{table QD Alfuzosin HCl ER 10 HCl ER 10 02-15 t_immed HCl ER 10 MG MG 00:00: 00:00 iately_ MG 00 :00 after_t he_same _meal} Alfuzosin Alfuzosin 2021- No 1{table QD Alfuzosin HCl ER 10 HCl ER 10 02-15 t_immed HCl ER 10 MG MG 00:00: 00:00 iately_ MG 00 :00 after_t he_same _meal} Ditropan XL Ditropan XL 2021- No 1{table QD Ditropan 5 MG 5 MG 02-15 t} XL 5 MG 00:00: 00:00 00 :00 Ditropan XL Ditropan XL 2- No 1{table QD Ditropan 5 MG 5 MG 02-15 t} XL 5 MG 00:00: 00:00 00 :00 Ditropan XL Ditropan XL 2- No 1{table QD Ditropan 5 MG 5 MG 02-15 t} XL 5 MG 00:00: 00:00 00 :00 Ditropan XL Ditropan XL 0 2- No 1{table QD Ditropan 5 MG 5 MG 02-15 t} XL 5 MG 00:00: 00:00 00 :00 Ditropan XL Ditropan XL 2- No 1{table QD Ditropan 5 MG 5 MG 02-15 t} XL 5 MG 00:00: 00:00 00 :00 Ditropan XL Ditropan XL 2- No 1{table QD Ditropan 5 MG 5 MG 6-06 10-04 t} XL 5 MG 00:00: 00:00 00 :00 Macrobid Macrobid 2022-0 2022- No 1{capsu BID Macrobid 100 MG 100 MG 02-15 le} 100 MG 00:00: 00:00 00 :00 Macrobid Macrobid 2022-0 2022- No 1{capsu BID Macrobid 100 MG 100 MG 02-04 le_with 100 MG 00:00: 00:00 _food} 00 :00 Macrobid Macrobid 2022-0 2022- No 1{capsu BID Macrobid 100 MG 100 MG 02-04 le_with 100 MG 00:00: 00:00 _food} 00 :00 FreeStyle FreeStyle 2022-0 No FreeStyle Cathie 2 Cathie 2 4-25 Cathie 2 Sensor - Sensor - 00:00: Sensor - 00 FreeStyle FreeStyle 2022-0 No FreeStyle Cathie 2 Cathie 2 4-25 [place] 2 [place] - 00 FreeStyle FreeStyle 2022-0 No FreeStyle Cathie 2 Cathie 2 4-25 Cathie 2 Sensor - Sensor - 00:00: Sensor - 00 FreeStyle FreeStyle 2022-0 No FreeStyle Cathie 2 Cathie 2 4-25 Cathie 2 [place]: [place] - 00 FreeStyle FreeStyle 2022-0 No FreeStyle Cathie 2 Cathie 2 4-25 Cathie 2 Sensor - Sensor - 00:00: Sensor - 00 FreeStyle FreeStyle 2022-0 No FreeStyle Cathie 2 Cathie 2 4-25 Cathie 2 [place] 00[place]: [place] - 00 FreeStyle FreeStyle 2022-0 No FreeStyle Cathie 2 Cathie 2 4-25 Cathie 2 Sensor - Sensor - 00:00: Sensor - 00 FreeStyle FreeStyle 2022-0 No FreeStyle Cathie 2 Cathie 2 4-25 Cathie 2 [place] 00:00: [place] - 00 FreeStyle FreeStyle 2022-0 No FreeStyle Cathie 2 Cathie 2 4-25 Cathie 2 [place] - 00:00: [place] - 00 FreeStyle FreeStyle 2022-0 No FreeStyle Cathie 2 Cathie 2 4-25 Cathie 2 Sensor - Sensor - 00:00: Sensor - 00 FreeStyle FreeStyle 2022-0 No FreeStyle Cathie 2 Cathie 2 4-25 Cathie 2 [place]: [place] - 00 FreeStyle FreeStyle 2022-0 No FreeStyle Cathie 2 Cathie 2 4-25 Cathie 2 Sensor - Sensor - 00:00: Sensor - 00 FreeStyle FreeStyle 2022-0 No FreeStyle Cathie 2 Cathie 2 4-25 Cathie 2 Sensor - Sensor - 00:00: Sensor - 00 FreeStyle FreeStyle 2022-0 No FreeStyle Cathie 2 Cathie 2 4-25 Cathie 2 [place] 00[place]00: [place] - 00 FreeStyle FreeStyle 2022-0 No FreeStyle Cathie 2 Cathie 2 4-25 Cathie 2 Sensor - Sensor - 00:00: Sensor - 00 FreeStyle FreeStyle 2022-0 No FreeStyle Cathie 2 Cathie 2 4-25 Cathie 2 [place] - 00[place]00: [place] - 00 FreeStyle FreeStyle 2022-0 No FreeStyle Cathie 2 Cathie 2 4-25 Cathie 2 Sensor - Sensor - 00:00: Sensor - 00 FreeStyle FreeStyle 2022-0 No FreeStyle Cathie 2 Cathie 2 4-25 Cathie 2 [place] - 00:00: [place] - 00 FreeStyle FreeStyle 2022-0 No FreeStyle Cathie 2 Cathie 2 4-25 Cathie 2 Sensor - Sensor - 00:00: Sensor - 00 FreeStyle FreeStyle 2022-0 No FreeStyle Cathie 2 Cathie 2 4-25 Cathie 2 [place] - 00:00: [place] - 00 FreeStyle FreeStyle 2022-0 No FreeStyle Cathie 2 Cathie 2 4-25 Cathie 2 Sensor - Sensor - 00:00: Sensor - 00 FreeStyle FreeStyle 2022-0 No FreeStyle Cathie 2 Cathie 2 4-25 Cathie 2 [place] - 00:00: [place] - 00 FreeStyle FreeStyle 2022-0 No FreeStyle Cathie 2 Cathie 2 4-25 Cathie 2 Sensor - Sensor - 00:00: Sensor - 00 FreeStyle FreeStyle 2022-0 No FreeStyle Cathie 2 Cathie 2 4-25 Cathie 2 [place] - 00:00: [place] - 00 FreeStyle FreeStyle 2022-0 No FreeStyle Cathie 2 Cathie 2 4-25 Cathie 2 Sensor - Sensor - 00:00: Sensor - 00 FreeStyle FreeStyle 2022-0 No FreeStyle Cathie 2 Cathie 2 4-25 Cathie 2 [place] - 00:00: [place] - 00 FreeStyle FreeStyle 2022-0 No FreeStyle Cathie 2 Cathie 2 4-25 Cathie 2 Sensor - Sensor - 00:00: Sensor - 00 FreeStyle FreeStyle 2022-0 No FreeStyle Cathie 2 Cathie 2 4-25 Cathie 2 [place] - 00:00: [place] - 00 FreeStyle FreeStyle 2022-0 No FreeStyle Cathie 2 Cathie 2 4-25 Cathie 2 [place] - 00:00: [place] - 00 FreeStyle FreeStyle 2022-0 No FreeStyle Cathie 2 Cathie 2 4-25 Cathie 2 Sensor - Sensor - 00:00: Sensor - 00 FreeStyle FreeStyle 2022-0 No FreeStyle Cathie 2 Cathie 2 4-25 Cathie 2 [place] - 00:00: [place] - 00 FreeStyle FreeStyle 2022-0 No FreeStyle Cathie 2 Cathie 2 4-25 Cathie 2 Sensor - Sensor - 00:00: Sensor - 00 FreeStyle FreeStyle 2022-0 No FreeStyle Cathie 2 Cathie 2 4-25 Cathie 2 [place] - 00:00: [place] - 00 FreeStyle FreeStyle 2022-0 No FreeStyle Cathie 2 Cathie 2 4-25 Cathie 2 Sensor - Sensor - 00:00: Sensor - 00 FreeStyle FreeStyle 2022-0 No FreeStyle Cathie 2 Cathie 2 4-25 Cathie 2 [place] - 00:00: [place] - 00 FreeStyle FreeStyle 2022-0 No FreeStyle Cathie 2 Cathie 2 4-25 Cathie 2 Sensor - Sensor - 00:00: Sensor - 00 FreeStyle FreeStyle 2022-0 No FreeStyle Cathie 2 Cathie 2 4-25 Cathie 2 [place] - 00:00: [place] - 00 FreeStyle FreeStyle 2022-0 No FreeStyle Cathie 2 Cathie 2 4-25 Cathie 2 Sensor - Sensor - 00:00: Sensor - 00 FreeStyle FreeStyle 2022-0 No FreeStyle Cathie 2 Cathie 2 4-25 Cathie 2 Sensor - Sensor - 00:00: Sensor - 00 FreeStyle FreeStyle 2022-0 No FreeStyle Cathie 2 Cathie 2 4-25 Cathie 2 [place] - 00:00: [place] - 00 FreeStyle FreeStyle 2022-0 No FreeStyle Cathie 2 Cathie 2 4-25 Cathie 2 Sensor - Sensor - 00:00: Sensor - 00 FreeStyle FreeStyle 2022-0 No FreeStyle Cathie 2 Cathie 2 4-25 Cathie 2 [place] - 00:00: [place] - 00 FreeStyle FreeStyle 2022-0 No FreeStyle Cathie 2 Cathie 2 4-25 Cathie 2 Sensor - Sensor - 00:00: Sensor - 00 FreeStyle FreeStyle 2022-0 No FreeStyle Cathie 2 Cathie 2 4-25 Cathie 2 [place] - 00:00: [place] - 00 FreeStyle FreeStyle 2022-0 No FreeStyle Cathie 2 Cathie 2 4-25 Cathie 2 Sensor - Sensor - 00:00: Sensor - 00 FreeStyle FreeStyle 2022-0 No FreeStyle Cathie 2 Cathie 2 4-25 Cathie 2 [place] - 00:00: [place] - 00 Ferrous Ferrous 2022-0 No 1{table BID Ferrous Sulfate 325 Sulfate 325 4-21 t} Sulfate (65 Fe) MG (65 Fe) MG 00:00: 325 (65 00 Fe) MG Ferrous Ferrous 2-0 No 1{table BID Ferrous Sulfate 325 Sulfate 325 4-21 t} Sulfate (65 Fe) MG (65 Fe) MG 00:00: 325 (65 00 Fe) MG Macrobid Macrobid 2021-0 2022- No 1{capsu BID Macrobid 100 MG 100 MG 12-11 0408 le} 100 MG 00:00: 00:00 00 :00 Macrobid Macrobid 2021-0 2022- No 1{capsu BID Macrobid 100 MG 100 MG 12-11 le} 100 MG 00:00: 00:00 00 :00 Macrobid Macrobid 2021-0 2022- No 1{capsu BID Macrobid 100 MG 100 MG 12-11 le} 100 MG 00:00: 00:00 00 :00 Sulfamethox Sulfamethox 2021-0 2- No 1{table BID Sulfametho azole-Trime azole-Trime 11-26 t} xazole-Tri thoprim thoprim 00:00: 00:00 methoprim 800-160 MG 800-160 MG 00 :00 800-160 MG Cipro 500 Cipro 500 2021-0 2022- No 1{table BID Cipro 500 MG MG 10-09 t} MG 00:00: 00:00 00 :00 Cipro 500 Cipro 500 2021-0 2- No 1{table BID MG MG 10-09 t} 00:00: 00:00 00 :00 Flonase 50 Flonase 50 2020-09 No 2{spray QD Flonase 50 MCG/ACT MCG/ACT 2-15 _in_eac MCG/ACT 00:00: h_nostr 00 il} Flonase 50 Flonase 50 2020-09 No 2{spray QD Flonase 50 MCG/ACT MCG/ACT 2-15 _in_eac MCG/ACT 00:00: h_nostr 00 il} Flonase 50 Flonase 50 2020-09 No 2{spray QD Flonase 50 MCG/ACT MCG/ACT 2-15 _in_eac MCG/ACT 00:00: h_nostr 00 il} Flonase 50 Flonase 50 2020-09 No 2{spray QD MCG/ACT MCG/ACT 2-15 _in_eac 00:00: h_nostr 00 il} Flonase 50 Flonase 50 2020-09 No 2{spray QD Flonase 50 MCG/ACT MCG/ACT 2-15 _in_eac MCG/ACT 00:00: h_nostr 00 il} Flonase 50 Flonase 50 2020-09 No 2{spray QD Flonase 50 MCG/ACT MCG/ACT 2-15 _in_eac MCG/ACT 00:00: h_nostr 00 il} Flonase 50 Flonase 50 2020-09 No 2{spray QD Flonase 50 MCG/ACT MCG/ACT 2-15 _in_eac MCG/ACT 00:00: h_nostr 00 il} Flonase 50 Flonase 50 2020-09 No 2{spray QD Flonase 50 MCG/ACT MCG/ACT 2-15 _in_eac MCG/ACT 00:00: h_nostr 00 il} Flonase 50 Flonase 50 2020-09 No 2{spray QD Flonase 50 MCG/ACT MCG/ACT 2-15 _in_eac MCG/ACT 00:00: h_nostr 00 il} Flonase 50 Flonase 50 2020-09 No 2{spray QD Flonase 50 MCG/ACT MCG/ACT 2-15 _in_eac MCG/ACT 00:00: h_nostr 00 il} Flonase 50 Flonase 50 2020-09 No 2{spray QD Flonase 50 MCG/ACT MCG/ACT 2-15 _in_eac MCG/ACT 00:00: h_nostr 00 il} Flonase 50 Flonase 50 2020-09 No 2{spray QD Flonase 50 MCG/ACT MCG/ACT 2-15 _in_eac MCG/ACT 00:00: h_nostr 00 il} Flonase 50 Flonase 50 2020-09 No 2{spray QD Flonase 50 MCG/ACT MCG/ACT 2-15 _in_eac MCG/ACT 00:00: h_nostr 00 il} Flonase 50 Flonase 50 2020-09 No 2{spray QD Flonase 50 MCG/ACT MCG/ACT 2-15 _in_eac MCG/ACT 00:00: h_nostr 00 il} Flonase 50 Flonase 50 2020-09 No 2{spray QD Flonase 50 MCG/ACT MCG/ACT 2-15 _in_eac MCG/ACT 00:00: h_nostr 00 il} Flonase 50 Flonase 50 2020-09 No 2{spray QD Flonase 50 MCG/ACT MCG/ACT 2-15 _in_eac MCG/ACT 00:00: h_nostr 00 il} Flonase 50 Flonase 50 2020-09 No 2{spray QD Flonase 50 MCG/ACT MCG/ACT 2-15 _in_eac MCG/ACT 00:00: h_nostr 00 il} Flonase 50 Flonase 50 2020-09 No 2{spray QD Flonase 50 MCG/ACT MCG/ACT 2-15 _in_eac MCG/ACT 00:00: h_nostr 00 il} Flonase 50 Flonase 50 2020-09 No 2{spray QD Flonase 50 MCG/ACT MCG/ACT 2-15 _in_eac MCG/ACT 00:00: h_nostr 00 il} casirivimab 2020- No [id number] 1200mg 1,200 mg, Univers -imdevimab 06-11 Subcutaneo it y of (REGEN-COV 21:15: 19:58 us, ONCE, [place] (EUA)) 00 :00 1 dose, On Medical injection Sonia Branch 1,200 mg 06/11/21 at 1615, Routine Oxybutynin Oxybutynin 2020- No 1{table BID Oxybutynin Chloride 5 Chloride 5 8-23 11-21 t} Chloride 5 MG MG 00:00: 00:00 MG 00 : Hyalgan 20 Hyalgan 20 2018-0 No 2mL C ommon mg mg 06-06 Spirit 00:00: - [facility] Bupivicaine Bupivicaine 2018-0 No 5mL [place] 06-06 [facility] 00:00: - [facility] Hyalgan 20 Hyalgan 20 2019-0 No 2mL C ommon mg mg 06-06 Spirit 00:00: - [facility] Bupivicaine Bupivicaine 2019-0 No 5mL [facility] [place] 06-06 Spirit 00:00: - [facility] Hyalgan 20 Hyalgan 20 2019-0 No 2mL C ommon mg mg 06-06 Spirit 00:00: - [facility] Bupivicaine Bupivicaine 2019-0 No 5mL [facility] [place] 06-06 [facility] 00:00: - [facility] Hyalgan 20 Hyalgan 20 2019-0 No 2mL C ommon mg mg 06-06 Spirit 00:00: - [facility] Bupivicaine Bupivicaine 2019-0 No 5mL [facility] [place] 06-06 Spirit 00:00: - [facility] Hyalgan 20 Hyalgan 20 2019-0 No 2mL C ommon mg mg 06-06 Spirit 00:00: - [facility] Bupivicaine Bupivicaine 2019-0 No 5mL [facility] [place] 06-06 Spirit 00:00: - [facility] Hyalgan 20 Hyalgan 20 2019-0 No 2mL C ommon mg mg 06-06 Spirit 00:00: - [facility] Bupivicaine Bupivicaine 2019-0 No 5mL [facility] [place] 06-06 Spirit 00:00: - [facility] Hyalgan 20 Hyalgan 20 2019-0 No 2mL C ommon mg mg 06-06 Spirit 00:00: - [facility] Bupivicaine Bupivicaine 2019-0 No 5mL [facility] [place] 06-06 Spirit 00:00: - [facility] Hyalgan 20 Hyalgan 20 2019-0 No 2mL C ommon mg mg 06-06 Spirit 00:00: - [facility] Bupivicaine Bupivicaine 2019-0 No 5mL [facility] [place] 06-06 Spirit 00:00: - [facility] Hyalgan 20 Hyalgan 20 2019-0 No 2mL C ommon mg mg 06-06 Spirit 00:00: - [facility] Bupivicaine Bupivicaine 2019-0 No 5mL [facility] [place] 06-06 Spirit 00:00: - [facility] Hyalgan 20 Hyalgan 20 2019-0 No 2mL C ommon mg mg 06-06 Spirit 00:00: - [facility] Bupivicaine Bupivicaine 2019-0 No 5mL [place] 06-06 Spirit 00:00: - [facility] Hyalgan 20 Hyalgan 20 2019-0 No 2mL C ommon mg mg 06-06 Spirit 00:00: - [facility] Bupivicaine Bupivicaine 2019-0 No 5mL [facility] [place] 06-06 [facility] 00:00: - [facility] Hyalgan 20 Hyalgan 20 2019-0 No 2mL C ommon mg mg 06-06 Spirit 00:00: - [facility] Bupivicaine Bupivicaine 2019-0 No 5mL [facility] [place] 06-06 [facility] 00:00: - [facility] Hyalgan 20 Hyalgan 20 2019-0 No 2mL C ommon mg mg 06-06 Spirit 00:00: - [facility] Bupivicaine Bupivicaine 2019-0 No 5mL [facility] [place] 06-06 [facility] 00:00: - [facility] Hyalgan 20 Hyalgan 20 2019-0 No 2mL C ommon mg mg 06-06 Spirit 00:00: - [facility] Bupivicaine Bupivicaine 2019-0 No 5mL [facility] [place] 06-06 Spirit 00:00: - [facility] Hyalgan 20 Hyalgan 20 2019-0 No 2mL C ommon mg mg 06-06 Spirit 00:00: - [facility] Bupivicaine Bupivicaine 2019-0 No 5mL [place] 06-06 [facility] 00:00: - [facility] Hyalgan 20 Hyalgan 20 2019-0 No 2mL C ommon mg mg 06-06 Spirit 00:00: - [facility] Bupivicaine Bupivicaine 2019-0 No 5mL [facility] [place] 06-06 [facility] 00:00: - [facility] Hyalgan 20 Hyalgan 20 2019-0 No 2mL C ommon mg mg 06-06 Spirit 00:00: - [facility] Bupivicaine Bupivicaine 2019-0 No 5mL [facility] [place] 06-06 [facility] 00:00: - [facility] Hyalgan 20 Hyalgan 20 2019-0 No 2mL C ommon mg mg 06-06 Spirit 00:00: - [facility] Bupivicaine Bupivicaine 2019-0 No 5mL [place] 06-06 [facility] 00:00: - [facility] Hyalgan 20 Hyalgan 20 2019-0 No 2mL C ommon mg mg 06-06 Spirit 00:00: - [facility] Bupivicaine Bupivicaine 2019-0 No 5mL [place] 06-06 [facility] 00:00: - [facility] Hyalgan 20 Hyalgan 20 2019-0 No 2mL C ommon mg mg 06-06 Spirit 00:00: - [facility] Bupivicaine Bupivicaine 2019-0 No 5mL [place] 06-06 [facility] 00:00: - [facility] Hyalgan 20 Hyalgan 20 2019-0 No 2mL C ommon mg mg 06-06 Spirit 00:00: - [facility] Bupivicaine Bupivicaine 2019-0 No 5mL [place] 06-06 [facility] 00:00: - [facility] Hyalgan 20 Hyalgan 20 2019-0 No 2mL C ommon mg mg 06-06 Spirit 00:00: - [facility] Bupivicaine Bupivicaine 2019-0 No 5mL [place] 06-06 [facility] 00:00: - [facility] Hyalgan 20 Hyalgan 20 2019-0 No 2mL C ommon mg mg 06-06 Spirit 00:00: - [facility] [facility] [place] Bupivicaine Bupivicaine 2019-0 No 5mL [place] 06-06 [facility] 00:00: - [facility] [place] Hyalgan 20 Hyalgan 20 2019-0 No 2mL C ommon mg mg 06-06 Spirit 00:00: - [facility] [place] Bupivicaine Bupivicaine 2019-0 No 5mL Common [place] 06-06 [facility] 00:00: - [facility] [place] Hyalgan 20 Hyalgan 20 2019-0 No 2mL C ommon mg mg 06-06 Spirit 00:00: - [facility] [place] Bupivicaine Bupivicaine 2019-0 No 5mL Common [place] 06-06 [facility] 00:00: - [facility] [place] Hyalgan 20 Hyalgan 20 2019-0 No 2mL C ommon mg mg 06-06 Spirit 00:00: - [facility] [place] Bupivicaine Bupivicaine 2019-0 No 5mL Common [place] 06-06 [facility] 00:00: - [facility] [place] Hyalgan 20 Hyalgan 20 2019-0 No 2mL C ommon mg mg 06-06 Spirit 00:00: - [facility] [place] Bupivicaine Bupivicaine 2019-0 No 5mL Common [place] 06-06 [facility] 00:00: - [facility] [place] Hyalgan 20 Hyalgan 20 2019-0 No 2mL C ommon mg mg 06-06 Spirit 00:00: - [facility] [place] Bupivicaine Bupivicaine 2019-0 No 5mL Common [place] 06-06 [facility] 00:00: - [facility] [place] Tramadol Tramadol 2019-0 2019- No Vignesh as Co mmon HCl HCl 05-28 [place] directed [facility] 00:00: 00:00 - [facility] [place] Bupivicaine Bupivicaine 2019-0 No 5mL Common [place] 05-25 [facility] 00:00: - [facility] [place] Hyalgan 20 Hyalgan 20 2019-0 No 2mL C ommon mg mg 05-25 Spirit 00:00: - [facility] [place] Bupivicaine Bupivicaine 2019-0 No 5mL Common [place] 05-25 [facility] 00:00: - [facility] [place] Hyalgan 20 Hyalgan 20 2019-0 No 2mL C ommon mg mg 05-25 Spirit 00:00: - [facility] [place] Bupivicaine Bupivicaine 2019-0 No 5mL Common [place] 05-25 [facility] 00:00: - [facility] [place] Hyalgan 20 Hyalgan 20 2019-0 No 2mL C ommon mg mg 05-25 Spirit 00:00: - [facility] [place] Bupivicaine Bupivicaine 2019-0 No 5mL Common [place] 05-25 [facility] 00:00: - [facility] [place] Hyalgan 20 Hyalgan 20 2019-0 No 2mL C ommon mg mg 05-25 Spirit 00:00: - [facility] [place] Bupivicaine Bupivicaine 2019-0 No 5mL Common [place] 05-25 [facility] 00:00: - [facility] [place] Hyalgan 20 Hyalgan 20 2019-0 No 2mL C ommon mg mg 05-25 Spirit 00:00: - [facility] [place] Bupivicaine Bupivicaine 2019-0 No 5mL Common [place] 05-25 [facility] 00:00: - [facility] [place] Hyalgan 20 Hyalgan 20 2019-0 No 2mL C ommon mg mg 05-25 Spirit 00:00: - [facility] [place] Bupivicaine Bupivicaine 2019-0 No 5mL Common [place] 05-25 [facility] 00:00: - [facility] [place] Hyalgan 20 Hyalgan 20 2019-0 No 2mL C ommon mg mg 05-25 Spirit 00:00: - [facility] [place] Bupivicaine Bupivicaine 2019-0 No 5mL Common [place] 05-25 [facility] 00:00: - [facility] [place] Hyalgan 20 Hyalgan 20 2019-0 No 2mL C ommon mg mg 05-25 Spirit 00:00: - [facility] [place] Bupivicaine Bupivicaine 2019-0 No 5mL Common [place] 05-25 [facility] 00:00: - [facility] [place] Hyalgan 20 Hyalgan 20 2019-0 No 2mL C ommon mg mg 05-25 Spirit 00:00: - [facility] [place] Bupivicaine Bupivicaine 2019-0 No 5mL Common [place] 05-25 [facility] 00:00: - [facility] [place] Hyalgan 20 Hyalgan 20 2019-0 No 2mL C ommon mg mg 05-25 Spirit 00:00: - [facility] [place] Bupivicaine Bupivicaine 2019-0 No 5mL Common [place] 05-25 [facility] 00:00: - [facility] [place] Hyalgan 20 Hyalgan 20 2019-0 No 2mL C ommon mg mg 05-25 Spirit 00:00: - [facility] [place] Bupivicaine Bupivicaine 2019-0 No 5mL Common [place] 05-25 [facility] 00:00: - [facility] [place] Hyalgan 20 Hyalgan 20 2019-0 No 2mL C ommon mg mg 05-25 Spirit 00:00: - [facility] [place] Bupivicaine Bupivicaine 2019-0 No 5mL Common [place] 05-25 [facility] 00:00: - [facility] [place] Hyalgan 20 Hyalgan 20 2019-0 No 2mL C ommon mg mg 05-25 Spirit 00:00: - [facility] [place] Bupivicaine Bupivicaine 2019-0 No 5mL Common [place] 05-25 [facility] 00:00: - [facility] [place] Hyalgan 20 Hyalgan 20 2019-0 No 2mL C ommon mg mg 05-25 Spirit 00:00: - [facility] [place] Bupivicaine Bupivicaine 2019-0 No 5mL Common [place] 05-25 [facility] 00:00: - [facility] [place] Hyalgan 20 Hyalgan 20 2019-0 No 2mL C ommon mg mg 05-25 Spirit 00:00: - [facility] [place] Bupivicaine Bupivicaine 2019-0 No 5mL Common [place] 05-25 [facility] 00:00: - [facility] [place] Hyalgan 20 Hyalgan 20 2019-0 No 2mL C ommon mg mg 05-25 Spirit 00:00: - [facility] [place] Bupivicaine Bupivicaine 2019-0 No 5mL Common [place] 05-25 [facility] 00:00: - [facility] [place] Hyalgan 20 Hyalgan 20 2019-0 No 2mL C ommon mg mg 05-25 Spirit 00:00: - [facility] [place] Bupivicaine Bupivicaine 2019-0 No 5mL Common [place] 05-25 [facility] 00:00: - [facility] [place] Hyalgan 20 Hyalgan 20 2019-0 No 2mL C ommon mg mg 05-25 Spirit 00:00: - [facility] [place] Bupivicaine Bupivicaine 2019-0 No 5mL Common [place] 05-25 [facility] 00:00: - [facility] [place] Hyalgan 20 Hyalgan 20 2019-0 No 2mL C ommon mg mg 05-25 Spirit 00:00: - [facility] [place] Bupivicaine Bupivicaine 2019-0 No 5mL Common [place] 05-25 [facility] 00:00: - [facility] [place] Hyalgan 20 Hyalgan 20 2019-0 No 2mL C ommon mg mg 05-25 Spirit 00:00: - [facility] [place] Bupivicaine Bupivicaine 2019-0 No 5mL Common [place] 05-25 [facility] 00:00: - [facility] [place] Hyalgan 20 Hyalgan 20 2019-0 No 2mL C ommon mg mg 05-25 Spirit 00:00: - [facility] [place] Bupivicaine Bupivicaine 2019-0 No 5mL Common [place] 05-25 [facility] 00:00: - [facility] [place] Hyalgan 20 Hyalgan 20 2019-0 No 2mL C ommon mg mg 05-25 Spirit 00:00: - [facility] [place] Bupivicaine Bupivicaine 2019-0 No 5mL Common [place] 05-25 [facility] 00:00: - [facility] [place] Hyalgan 20 Hyalgan 20 2019-0 No 2mL C ommon mg mg 05-25 Spirit 00:00: - [facility] [place] Bupivicaine Bupivicaine 2019-0 No 5mL Common [place] 05-25 [facility] 00:00: - [facility] [place] Hyalgan 20 Hyalgan 20 2019-0 No 2mL C ommon mg mg 05-25 [facility] 00:00: - [facility] [place] Bupivicaine Bupivicaine 2019-0 No 5mL Common [place] 05-25 [facility] 00:00: - [facility] [place] Hyalgan 20 Hyalgan 20 2019-0 No 2mL C ommon mg mg 05-25 [facility] 00:00: - [facility] [place] Bupivicaine Bupivicaine 2019-0 No 5mL Common [place] 05-25 [facility] 00:00: - [facility] [place] Hyalgan 20 Hyalgan 20 2019-0 No 2mL C ommon mg mg 05-25 [facility] 00:00: - [facility] [place] Bupivicaine Bupivicaine 2019-0 No 5mL Common [place] 05-25 [facility] 00:00: - [facility] [place] Hyalgan 20 Hyalgan 20 2019-0 No 2mL C ommon mg mg 05-25 [facility] 00:00: - [facility] [place] Bupivicaine Bupivicaine 2019-0 No 5mL Common [place] 05-25 [facility] 00:00: - [facility] [place] Hyalgan 20 Hyalgan 20 2019-0 No 2mL C ommon mg mg 05-25 Spirit 00:00: - [facility] [place] Bupivicaine Bupivicaine 2019-0 No 5mL Common [place] 04-19 [facility] 00:00: - [facility] [place] Depo Medrol Depo Medrol 2019-0 No 1mL Common (40mg) (40mg) 04-19 Spirit 00:00: - [facility] [place] Bupivicaine Bupivicaine 2019-0 No 5mL Common [place] 04-19 [facility] 00:00: - [facility] [place] Depo Medrol Depo Medrol 2019-0 No 1mL Common (40mg) (40mg) 04-19 Spirit 00:00: - [facility] [place] Bupivicaine Bupivicaine 2019-0 No 5mL Common [place] 04-19 [facility] 00:00: - [facility] [place] Depo Medrol Depo Medrol 2019-0 No 1mL Common (40mg) (40mg) 04-19 Spirit 00:00: - [facility] [place] Bupivicaine Bupivicaine 2019-0 No 5mL Common [place] 04-19 [facility] 00:00: - [facility] [place] Depo Medrol Depo Medrol 2019-0 No 1mL Common (40mg) (40mg) 04-19 Spirit 00:00: - [facility] [place] Bupivicaine Bupivicaine 2019-0 No 5mL Common [place] 04-19 [facility] 00:00: - [facility] [place] Depo Medrol Depo Medrol 2019-0 No 1mL Common (40mg) (40mg) 04-19 [facility] 00:00: - [facility] [place] Bupivicaine Bupivicaine 2019-0 No 5mL Common [place] 04-19 [facility] 00:00: - [facility] [place] Depo Medrol Depo Medrol 2019-0 No 1mL Common (40mg) (40mg) 04-19 [facility] 00:00: - [facility] [place] Bupivicaine Bupivicaine 2019-0 No 5mL Common [place] 04-19 [facility] 00:00: - [facility] [place] Depo Medrol Depo Medrol 2019-0 No 1mL Common (40mg) (40mg) 04-19 [facility] 00:00: - [facility] [place] Bupivicaine Bupivicaine 2019-0 No 5mL Common [place] 04-19 [facility] 00:00: - [facility] [place] Depo Medrol Depo Medrol 2019-0 No 1mL Common (40mg) (40mg) 04-19 [facility] 00:00: - [facility] [place] Bupivicaine Bupivicaine 2019-0 No 5mL Common [place] 04-19 [facility] 00:00: - [facility] [place] Depo Medrol Depo Medrol 2019-0 No 1mL Common (40mg) (40mg) 04-19 [facility] 00:00: - [facility] [place] Bupivicaine Bupivicaine 2019-0 No 5mL Common [place] 04-19 [facility] 00:00: - [facility] [place] Depo Medrol Depo Medrol 2019-0 No 1mL Common (40mg) (40mg) 04-19 [facility] 00:00: - [facility] [place] Bupivicaine Bupivicaine 2019-0 No 5mL Common [place] 04-19 [facility] 00:00: - [facility] [place] Depo Medrol Depo Medrol 2019-0 No 1mL Common (40mg) (40mg) 04-19 Spirit 00:00: - [facility] [place] Bupivicaine Bupivicaine 2019-0 No 5mL Common [place] 04-19 [facility] 00:00: - [facility] [place] Depo Medrol Depo Medrol 2019-0 No 1mL Common (40mg) (40mg) 04-19 Spirit 00:00: - [facility] [place] Bupivicaine Bupivicaine 2019-0 No 5mL Common [place] 04-19 [facility] 00:00: - [facility] [place] Depo Medrol Depo Medrol 2019-0 No 1mL Common (40mg) (40mg) 04-19 Spirit 00:00: - [facility] [place] Bupivicaine Bupivicaine 2019-0 No 5mL Common [place] 04-19 [facility] 00:00: - [facility] [place] Depo Medrol Depo Medrol 2019-0 No 1mL Common (40mg) (40mg) 04-19 Spirit 00:00: - [facility] [place] Bupivicaine Bupivicaine 2019-0 No 5mL Common [place] 04-19 [facility] 00:00: - [facility] [place] Depo Medrol Depo Medrol 2019-0 No 1mL Common (40mg) (40mg) 04-19 Spirit 00:00: - [facility] [place] Bupivicaine Bupivicaine 2019-0 No 5mL Common [place] 04-19 [facility] 00:00: - [facility] [place] Depo Medrol Depo Medrol 2019-0 No 1mL Common (40mg) (40mg) 04-19 Spirit 00:00: - [facility] [place] Bupivicaine Bupivicaine 2019-0 No 5mL Common [place] 04-19 [facility] 00:00: - [facility] [place] Depo Medrol Depo Medrol 2019-0 No 1mL Common (40mg) (40mg) 04-19 Spirit 00:00: - [facility] [place] Bupivicaine Bupivicaine 2019-0 No 5mL Common [place] 04-19 [facility] 00:00: - [facility] [place] Depo Medrol Depo Medrol 2019-0 No 1mL Common (40mg) (40mg) 04-19 [facility] 00:00: - [facility] [place] Bupivicaine Bupivicaine 2019-0 No 5mL Common [place] 04-19 [facility] 00:00: - [facility] [place] Depo Medrol Depo Medrol 2019-0 No 1mL Common (40mg) (40mg) 04-19 [facility] 00:00: - [facility] [place] Bupivicaine Bupivicaine 2019-0 No 5mL Common [place] 04-19 [facility] 00:00: - [facility] [place] Depo Medrol Depo Medrol 2019-0 No 1mL Common (40mg) (40mg) 04-19 [facility] 00:00: - [facility] [place] Bupivicaine Bupivicaine 2019-0 No 5mL Common [place] 04-19 [facility] 00:00: - [facility] [place] Depo Medrol Depo Medrol 2019-0 No 1mL Common (40mg) (40mg) 04-19 [facility] 00:00: - [facility] [place] Bupivicaine Bupivicaine 2019-0 No 5mL Common [place] 04-19 [facility] 00:00: - [facility] [place] Depo Medrol Depo Medrol 2019-0 No 1mL Common (40mg) (40mg) 04-19 [facility] 00:00: - [facility] [place] Bupivicaine Bupivicaine 2019-0 No 5mL Common [place] 04-19 [facility] 00:00: - [facility] [place] Depo Medrol Depo Medrol 2019-0 No 1mL Common (40mg) (40mg) 04-19 [facility] 00:00: - [facility] [place] Bupivicaine Bupivicaine 2019-0 No 5mL Common [place] 04-19 [facility] 00:00: - [facility] [place] Depo Medrol Depo Medrol 2019-0 No 1mL Common (40mg) (40mg) 04-19 [facility] 00:00: - [facility] [place] Bupivicaine Bupivicaine 2019-0 No 5mL Common [place] 04-19 [facility] 00:00: - [facility] [place] Depo Medrol Depo Medrol 2019-0 No 1mL Common (40mg) (40mg) 04-19 [facility] 00:00: - [facility] [place] Bupivicaine Bupivicaine 2019-0 No 5mL Common [place] 04-19 [facility] 00:00: - [facility] [place] Depo Medrol Depo Medrol 2019-0 No 1mL Common (40mg) (40mg) 04-19 [facility] 00:00: - [facility] [place] Bupivicaine Bupivicaine 2019-0 No 5mL Common [place] 04-19 [facility] 00:00: - [facility] [place] Depo Medrol Depo Medrol 2019-0 No 1mL Common (40mg) (40mg) 04-19 [facility] 00:00: - [facility] [place] Bupivicaine Bupivicaine 2019-0 No 5mL Common [place] 04-19 [facility] 00:00: - [facility] [place] Depo Medrol Depo Medrol 2019-0 No 1mL Common (40mg) (40mg) 04-19 [facility] 00:00: - [facility] [place] Flonase 50 Flonase 50 No 2{spray QD Flonase 50 MCG/ACT MCG/ACT _in_eac MCG/ACT h_nostr il} Ramipril 10 Ramipril 10 No 1{capsu QD Ramipril MG MG le} 10 MG Levothyroxi Levothyroxi No Levothyrox ne Sodium ne Sodium ine Sodium 50 MCG 50 MCG 50 MCG Cod Liver Cod Liver No Cod Liver Oil Oil Oil 4000-200 4000-200 4000-200 UNIT UNIT UNIT Montelukast Montelukast No Montelukas Sodium 10 Sodium 10 t Sodium MG MG 10 MG Montelukast Montelukast No 1{table QD Montelukas Sodium 10 Sodium 10 t} t Sodium MG MG 10 MG Atorvastati Atorvastati No Atorvastat n Calcium n Calcium in Calcium 20 MG 20 MG 20 MG Atorvastati Atorvastati No 1{table QD Atorvastat n Calcium n Calcium t} in Calcium 20 MG 20 MG 20 MG glipiZIDE glipiZIDE No glipiZIDE ER 10 MG ER 10 MG ER 10 MG metFORMIN metFORMIN No metFORMIN HCl 1000 MG HCl 1000 MG HCl 1000 MG Ferrous Ferrous No BID Ferrous Sulfate 325 Sulfate 325 Sulfate (65 Fe) MG (65 Fe) MG 325 (65 Fe) MG Linzess 145 Linzess 145 No QD Linzess MCG MCG 145 MCG Levothyroxi Levothyroxi No QD Levothyrox ne Sodium ne Sodium ine Sodium 50 MCG 50 MCG 50 MCG Calcium + Calcium + No 1{table QD Calcium + D3 600-800 D3 600-800 t_with_ D3 600-800 MG-UNIT MG-UNIT a_meal} MG-UNIT Zovirax 5 % Zovirax 5 % No 1{appli Zovirax 5 cation} % Flonase 50 Flonase 50 No 2{spray QD Flonase 50 MCG/ACT MCG/ACT _in_eac MCG/ACT h_nostr il} Ramipril 10 Ramipril 10 No 1{capsu QD Ramipril MG MG le} 10 MG Levothyroxi Levothyroxi No Levothyrox ne Sodium ne Sodium ine Sodium 50 MCG 50 MCG 50 MCG Cod Liver Cod Liver No Cod Liver Oil Oil Oil 4000-200 4000-200 4000-200 UNIT UNIT UNIT Montelukast Montelukast No Montelukas Sodium 10 Sodium 10 t Sodium MG MG 10 MG Montelukast Montelukast No 1{table QD Montelukas Sodium 10 Sodium 10 t} t Sodium MG MG 10 MG Atorvastati Atorvastati No Atorvastat n Calcium n Calcium in Calcium 20 MG 20 MG 20 MG Lansoprazol Lansoprazol Yes Vignesh not Common e e Richi defined [facility] Atorvastati Atorvastati Yes Vignesh not Common n Calcium n Calcium Richi defined [facility] Montelukast Montelukast Yes Vignesh not Common Sodium Sodium Richi defined [facility] Naproxen Naproxen Yes Vignesh not Commo n Richi defined [facility] Levothyroxi Levothyroxi Yes Vignesh not Common ne Sodium ne Sodium Richi defined [facility] Ramipril Ramipril Yes Vignesh not Commo n Richi defined [facility] Invokana Invokana Yes Vignesh not Commo n Richi defined [facility] GlipiZIDE GlipiZIDE Yes Vignesh not Com mon ER ER Richi defined [facility] Ramipril 10 Ramipril 10 No 1{capsu QD Ramipril MG MG le} 10 MG glipiZIDE glipiZIDE No glipiZIDE ER 10 MG ER 10 MG ER 10 MG metFORMIN metFORMIN No metFORMIN HCl 1000 MG HCl 1000 MG HCl 1000 MG Ferrous Ferrous No BID Ferrous Sulfate 325 Sulfate 325 Sulfate (65 Fe) MG (65 Fe) MG 325 (65 Fe) MG Linzess 145 Linzess 145 No QD Linzess MCG MCG 145 MCG Levothyroxi Levothyroxi No QD Levothyrox ne Sodium ne Sodium ine Sodium 50 MCG 50 MCG 50 MCG Calcium + Calcium + No 1{table QD Calcium + D3 600-800 D3 600-800 t_with_ D3 600-800 MG-UNIT MG-UNIT a_meal} MG-UNIT Zovirax 5 % Zovirax 5 % No 1{appli Zovirax 5 cation} % Flonase 50 Flonase 50 No 2{spray QD Flonase 50 MCG/ACT MCG/ACT _in_eac MCG/ACT h_nostr il} Atorvastati Atorvastati No 1{table QD Atorvastat n Calcium n Calcium t} in Calcium 20 MG 20 MG 20 MG Levothyroxi Levothyroxi No Levothyrox ne Sodium ne Sodium ine Sodium 50 MCG 50 MCG 50 MCG Cod Liver Cod Liver No Cod Liver Oil Oil Oil 4000-200 4000-200 4000-200 UNIT UNIT UNIT Montelukast Montelukast No Montelukas Sodium 10 Sodium 10 t Sodium MG MG 10 MG Montelukast Montelukast No 1{table QD Montelukas Sodium 10 Sodium 10 t} t Sodium MG MG 10 MG Atorvastati Atorvastati No Atorvastat n Calcium n Calcium in Calcium 20 MG 20 MG 20 MG Ramipril 10 Ramipril 10 No 1{capsu QD Ramipril MG MG le} 10 MG glipiZIDE glipiZIDE No glipiZIDE ER 10 MG ER 10 MG ER 10 MG metFORMIN metFORMIN No metFORMIN HCl 1000 MG HCl 1000 MG HCl 1000 MG Ferrous Ferrous No BID Ferrous Sulfate 325 Sulfate 325 Sulfate (65 Fe) MG (65 Fe) MG 325 (65 Fe) MG Linzess 145 Linzess 145 No Linzess MCG MCG 145 MCG Levothyroxi Levothyroxi No QD Levothyrox ne Sodium ne Sodium ine Sodium 50 MCG 50 MCG 50 MCG Calcium + Calcium + No 1{table QD Calcium + D3 600-800 D3 600-800 t_with_ D3 600-800 MG-UNIT MG-UNIT a_meal} MG-UNIT Zovirax 5 % Zovirax 5 % No 1{appli Zovirax 5 cation} % Flonase 50 Flonase 50 No 2{spray QD Flonase 50 MCG/ACT MCG/ACT _in_eac MCG/ACT h_nostr il} Atorvastati Atorvastati No 1{table QD Atorvastat n Calcium n Calcium t} in Calcium 20 MG 20 MG 20 MG Levothyroxi Levothyroxi No Levothyrox ne Sodium ne Sodium ine Sodium 50 MCG 50 MCG 50 MCG Cod Liver Cod Liver No Cod Liver Oil Oil Oil 4000-200 4000-200 4000-200 UNIT UNIT UNIT Montelukast Montelukast No Montelukas Sodium 10 Sodium 10 t Sodium MG MG 10 MG Atorvastati Atorvastati No Atorvastat n Calcium n Calcium in Calcium 20 MG 20 MG 20 MG Cod Liver Cod Liver No Cod Liver Oil Oil Oil 4000-200 4000-200 4000-200 UNIT UNIT UNIT Montelukast Montelukast No Montelukas Sodium 10 Sodium 10 t Sodium MG MG 10 MG Montelukast Montelukast No 1{table QD Montelukas Sodium 10 Sodium 10 t} t Sodium MG MG 10 MG glipiZIDE glipiZIDE No glipiZIDE ER 10 MG ER 10 MG ER 10 MG Calcium + Calcium + No 1{table QD Calcium + D3 600-800 D3 600-800 t_with_ D3 600-800 MG-UNIT MG-UNIT a_meal} MG-UNIT Flonase 50 Flonase 50 No 2{spray QD Flonase 50 MCG/ACT MCG/ACT _in_eac MCG/ACT h_nostr il} metFORMIN metFORMIN No metFORMIN HCl 1000 MG HCl 1000 MG HCl 1000 MG Montelukast Montelukast No 1{table QD Montelukas Sodium 10 Sodium 10 t} t Sodium MG MG 10 MG Linzess 145 Linzess 145 No Linzess MCG MCG 145 MCG Ferrous Ferrous No BID Ferrous Sulfate 325 Sulfate 325 Sulfate (65 Fe) MG (65 Fe) MG 325 (65 Fe) MG Atorvastati Atorvastati No 1{table QD Atorvastat n Calcium n Calcium t} in Calcium 20 MG 20 MG 20 MG Ramipril 10 Ramipril 10 No 1{capsu QD Ramipril MG MG le} 10 MG Zovirax 5 % Zovirax 5 % No 1{appli Zovirax 5 cation} % Levothyroxi Levothyroxi No QD Levothyrox ne Sodium ne Sodium ine Sodium 50 MCG 50 MCG 50 MCG Levothyroxi Levothyroxi No Levothyrox ne Sodium ne Sodium ine Sodium 50 MCG 50 MCG 50 MCG Atorvastati Atorvastati No Atorvastat n Calcium n Calcium in Calcium 20 MG 20 MG 20 MG Ramipril 10 Ramipril 10 No 1{capsu QD Ramipril MG MG le} 10 MG Atorvastati Atorvastati No Atorvastat n Calcium n Calcium in Calcium 20 MG 20 MG 20 MG Cod Liver Cod Liver No Cod Liver Oil Oil Oil 4000-200 4000-200 4000-200 UNIT UNIT UNIT Montelukast Montelukast No Montelukas Sodium 10 Sodium 10 t Sodium MG MG 10 MG Montelukast Montelukast No 1{table QD Montelukas Sodium 10 Sodium 10 t} t Sodium MG MG 10 MG glipiZIDE glipiZIDE No glipiZIDE ER 10 MG ER 10 MG ER 10 MG Calcium + Calcium + No 1{table QD Calcium + D3 600-800 D3 600-800 t_with_ D3 600-800 MG-UNIT MG-UNIT a_meal} MG-UNIT Flonase 50 Flonase 50 No 2{spray QD Flonase 50 MCG/ACT MCG/ACT _in_eac MCG/ACT h_nostr il} glipiZIDE glipiZIDE No glipiZIDE ER 10 MG ER 10 MG ER 10 MG metFORMIN metFORMIN No metFORMIN HCl 1000 MG HCl 1000 MG HCl 1000 MG Linzess 145 Linzess 145 No Linzess MCG MCG 145 MCG Ferrous Ferrous No BID Ferrous Sulfate 325 Sulfate 325 Sulfate (65 Fe) MG (65 Fe) MG 325 (65 Fe) MG Atorvastati Atorvastati No 1{table QD Atorvastat n Calcium n Calcium t} in Calcium 20 MG 20 MG 20 MG Ramipril 10 Ramipril 10 No 1{capsu QD Ramipril MG MG le} 10 MG Zovirax 5 % Zovirax 5 % No 1{appli Zovirax 5 cation} % Levothyroxi Levothyroxi No QD Levothyrox ne Sodium ne Sodium ine Sodium 50 MCG 50 MCG 50 MCG Levothyroxi Levothyroxi No Levothyrox ne Sodium ne Sodium ine Sodium 50 MCG 50 MCG 50 MCG metFORMIN metFORMIN No metFORMIN HCl 1000 MG HCl 1000 MG HCl 1000 MG Montelukast Montelukast No 1{table QD Montelukas Sodium 10 Sodium 10 t} t Sodium MG MG 10 MG Atorvastati Atorvastati No Atorvastat n Calcium n Calcium in Calcium 20 MG 20 MG 20 MG Atorvastati Atorvastati No 1{table QD Atorvastat n Calcium n Calcium t} in Calcium 20 MG 20 MG 20 MG Trulicity Trulicity No Trulicity 0.75 0.75 0.75 MG/0.5ML MG/0.5ML MG/0.5ML metFORMIN metFORMIN No metFORMIN HCl 1000 MG HCl 1000 MG HCl 1000 MG Atorvastati Atorvastati No 1{table QD Atorvastat n Calcium n Calcium t} in Calcium 40 MG 40 MG 40 MG Levothyroxi Levothyroxi No Levothyrox ne Sodium ne Sodium ine Sodium 50 MCG 50 MCG 50 MCG Zovirax 5 % Zovirax 5 % No 1{appli Zovirax 5 cation} % glipiZIDE glipiZIDE No glipiZIDE ER 10 MG ER 10 MG ER 10 MG Ferrous Ferrous No BID Ferrous Sulfate 325 Sulfate 325 Sulfate (65 Fe) MG (65 Fe) MG 325 (65 Fe) MG Montelukast Montelukast No Montelukas Sodium 10 Sodium 10 t Sodium MG MG 10 MG Levothyroxi Levothyroxi No QD Levothyrox ne Sodium ne Sodium ine Sodium 50 MCG 50 MCG 50 MCG Cod Liver Cod Liver No Cod Liver Oil Oil Oil 4000-200 4000-200 4000-200 UNIT UNIT UNIT Ferrous Ferrous No BID Ferrous Sulfate 325 Sulfate 325 Sulfate (65 Fe) MG (65 Fe) MG 325 (65 Fe) MG Calcium + Calcium + No 1{table QD Calcium + D3 600-800 D3 600-800 t_with_ D3 600-800 MG-UNIT MG-UNIT a_meal} MG-UNIT Ramipril 10 Ramipril 10 No 1{capsu QD Ramipril MG MG le} 10 MG Flonase 50 Flonase 50 No 2{spray QD Flonase 50 MCG/ACT MCG/ACT _in_eac MCG/ACT h_nostr il} Linzess 145 Linzess 145 No Linzess MCG MCG 145 MCG Linzess 145 Linzess 145 No Linzess MCG MCG 145 MCG Montelukast Montelukast No 1{table QD Montelukas Sodium 10 Sodium 10 t} t Sodium MG MG 10 MG Levothyroxi Levothyroxi No QD Levothyrox ne Sodium ne Sodium ine Sodium 50 MCG 50 MCG 50 MCG Atorvastati Atorvastati No Atorvastat n Calcium n Calcium in Calcium 20 MG 20 MG 20 MG Atorvastati Atorvastati No 1{table QD Atorvastat n Calcium n Calcium t} in Calcium 20 MG 20 MG 20 MG Trulicity Trulicity No Trulicity 0.75 0.75 0.75 MG/0.5ML MG/0.5ML MG/0.5ML metFORMIN metFORMIN No metFORMIN HCl 1000 MG HCl 1000 MG HCl 1000 MG Atorvastati Atorvastati No 1{table QD Atorvastat n Calcium n Calcium t} in Calcium 40 MG 40 MG 40 MG Levothyroxi Levothyroxi No Levothyrox ne Sodium ne Sodium ine Sodium 50 MCG 50 MCG 50 MCG Zovirax 5 % Zovirax 5 % No 1{appli Zovirax 5 cation} % glipiZIDE glipiZIDE No glipiZIDE ER 10 MG ER 10 MG ER 10 MG Calcium + Calcium + No 1{table QD Calcium + D3 600-800 D3 600-800 t_with_ D3 600-800 MG-UNIT MG-UNIT a_meal} MG-UNIT Ferrous Ferrous No BID Ferrous Sulfate 325 Sulfate 325 Sulfate (65 Fe) MG (65 Fe) MG 325 (65 Fe) MG Montelukast Montelukast No Montelukas Sodium 10 Sodium 10 t Sodium MG MG 10 MG Levothyroxi Levothyroxi No QD Levothyrox ne Sodium ne Sodium ine Sodium 50 MCG 50 MCG 50 MCG Cod Liver Cod Liver No Cod Liver Oil Oil Oil 4000-200 4000-200 4000-200 UNIT UNIT UNIT Calcium + Calcium + No 1{table QD Calcium + D3 600-800 D3 600-800 t_with_ D3 600-800 MG-UNIT MG-UNIT a_meal} MG-UNIT Ramipril 10 Ramipril 10 No 1{capsu QD Ramipril MG MG le} 10 MG Flonase 50 Flonase 50 No 2{spray QD Flonase 50 MCG/ACT MCG/ACT _in_eac MCG/ACT h_nostr il} Linzess 145 Linzess 145 No Linzess MCG MCG 145 MCG Zovirax 5 % Zovirax 5 % No 1{appli Zovirax 5 cation} % Flonase 50 Flonase 50 No 2{spray QD Flonase 50 MCG/ACT MCG/ACT _in_eac MCG/ACT h_nostr il} Atorvastati Atorvastati No 1{table QD Atorvastat n Calcium n Calcium t} in Calcium 20 MG 20 MG 20 MG Montelukast Montelukast No 1{table QD Montelukas Sodium 10 Sodium 10 t} t Sodium MG MG 10 MG Atorvastati Atorvastati No Atorvastat n Calcium n Calcium in Calcium 20 MG 20 MG 20 MG Atorvastati Atorvastati No 1{table QD Atorvastat n Calcium n Calcium t} in Calcium 20 MG 20 MG 20 MG Trulicity Trulicity No Trulicity 0.75 0.75 0.75 MG/0.5ML MG/0.5ML MG/0.5ML metFORMIN metFORMIN No metFORMIN HCl 1000 MG HCl 1000 MG HCl 1000 MG Ferrous Ferrous No Ferrous Sulfate 325 Sulfate 325 Sulfate (65 Fe) MG (65 Fe) MG 325 (65 Fe) MG Levothyroxi Levothyroxi No Levothyrox ne Sodium ne Sodium ine Sodium 50 MCG 50 MCG 50 MCG Levothyroxi Levothyroxi No Levothyrox ne Sodium ne Sodium ine Sodium 50 MCG 50 MCG 50 MCG Atorvastati Atorvastati No 1{table QD Atorvastat n Calcium n Calcium t} in Calcium 40 MG 40 MG 40 MG Calcium + Calcium + No 1{table QD Calcium + D3 600-800 D3 600-800 t_with_ D3 600-800 MG-UNIT MG-UNIT a_meal} MG-UNIT glipiZIDE glipiZIDE No glipiZIDE ER 10 MG ER 10 MG ER 10 MG Montelukast Montelukast No Montelukas Sodium 10 Sodium 10 t Sodium MG MG 10 MG Ramipril 10 Ramipril 10 No Ramipril MG MG 10 MG Cod Liver Cod Liver No Cod Liver Oil Oil Oil 4000-200 4000-200 4000-200 UNIT UNIT UNIT Levothyroxi Levothyroxi No QD Levothyrox ne Sodium ne Sodium ine Sodium 50 MCG 50 MCG 50 MCG Zovirax 5 % Zovirax 5 % No 1{appli Zovirax 5 cation} % Flonase 50 Flonase 50 No 2{spray QD Flonase 50 MCG/ACT MCG/ACT _in_eac MCG/ACT h_nostr il} Linzess 145 Linzess 145 No Linzess MCG MCG 145 MCG Cod Liver Cod Liver No Cod Liver Oil Oil Oil 4000-200 4000-200 4000-200 UNIT UNIT UNIT Atorvastati Atorvastati No Atorvastat n Calcium n Calcium in Calcium 20 MG 20 MG 20 MG Cod Liver Cod Liver No Cod Liver Oil Oil Oil 4000-200 4000-200 4000-200 UNIT UNIT UNIT Montelukast Montelukast No Montelukas Sodium 10 Sodium 10 t Sodium MG MG 10 MG Montelukast Montelukast No 1{table QD Montelukas Sodium 10 Sodium 10 t} t Sodium MG MG 10 MG glipiZIDE glipiZIDE No glipiZIDE ER 10 MG ER 10 MG ER 10 MG Calcium + Calcium + No 1{table QD Calcium + D3 600-800 D3 600-800 t_with_ D3 600-800 MG-UNIT MG-UNIT a_meal} MG-UNIT Flonase 50 Flonase 50 No 2{spray QD Flonase 50 MCG/ACT MCG/ACT _in_eac MCG/ACT h_nostr il} metFORMIN metFORMIN No metFORMIN HCl 1000 MG HCl 1000 MG HCl 1000 MG Linzess 145 Linzess 145 No Linzess MCG MCG 145 MCG Ferrous Ferrous No BID Ferrous Sulfate 325 Sulfate 325 Sulfate (65 Fe) MG (65 Fe) MG 325 (65 Fe) MG Atorvastati Atorvastati No 1{table QD Atorvastat n Calcium n Calcium t} in Calcium 20 MG 20 MG 20 MG Ramipril 10 Ramipril 10 No 1{capsu QD Ramipril MG MG le} 10 MG Zovirax 5 % Zovirax 5 % No 1{appli Zovirax 5 cation} % Levothyroxi Levothyroxi No QD Levothyrox ne Sodium ne Sodium ine Sodium 50 MCG 50 MCG 50 MCG Levothyroxi Levothyroxi No Levothyrox ne Sodium ne Sodium ine Sodium 50 MCG 50 MCG 50 MCG Montelukast Montelukast No 1{table QD Montelukas Sodium 10 Sodium 10 t} t Sodium MG MG 10 MG Cod Liver Cod Liver No Cod Liver Oil Oil Oil 4000-200 4000-200 4000-200 UNIT UNIT UNIT Levothyroxi Levothyroxi No QD Levothyrox ne Sodium ne Sodium ine Sodium 50 MCG 50 MCG 50 MCG Atorvastati Atorvastati No 1{table QD Atorvastat n Calcium n Calcium t} in Calcium 20 MG 20 MG 20 MG metFORMIN metFORMIN No 1{table QD metFORMIN HCl 1000 MG HCl 1000 MG t_with_ HCl 1000 a_meal} MG Fluconazole Fluconazole No 1{table Fluconazol 100 MG 100 MG t} e 100 MG Zovirax 5 % Zovirax 5 % No 1{appli Zovirax 5 cation} % Diclofenac Diclofenac No Diclofenac Sodium 50 Sodium 50 Sodium 50 MG MG MG Ramipril 10 Ramipril 10 No 1{capsu QD Ramipril MG MG le} 10 MG Vitamin B12 Vitamin B12 No QD Vitamin 2500 2500 B12 2500 Omeprazole Omeprazole No QD Omeprazole 40 MG 40 MG 40 MG Vitamin D3 Vitamin D3 No Vitamin D3 125 MCG 125 MCG 125 MCG (5000 UT) (5000 UT) (5000 UT) glipiZIDE glipiZIDE No 1{table BID glipiZIDE ER 10 MG ER 10 MG t_with_ ER 10 MG food} glipiZIDE glipiZIDE No glipiZIDE ER 10 MG ER 10 MG ER 10 MG Zovirax 5 % Zovirax 5 % No 1{appli Zovirax 5 cation} % Diclofenac Diclofenac No Diclofenac Sodium 50 Sodium 50 Sodium 50 MG MG MG Atorvastati Atorvastati No 1{table QD Atorvastat n Calcium n Calcium t} in Calcium 20 MG 20 MG 20 MG Levothyroxi Levothyroxi No QD Levothyrox ne Sodium ne Sodium ine Sodium 50 MCG 50 MCG 50 MCG Fluconazole Fluconazole No 1{table Fluconazol 100 MG 100 MG t} e 100 MG Oxybutynin Oxybutynin No Oxybutynin Chloride 5 Chloride 5 Chloride 5 MG MG MG Vitamin D3 Vitamin D3 No Vitamin D3 125 MCG 125 MCG 125 MCG (5000 UT) (5000 UT) (5000 UT) Ramipril 10 Ramipril 10 No 1{capsu QD Ramipril MG MG le} 10 MG Cod Liver Cod Liver No Cod Liver Oil Oil Oil 4000-200 4000-200 4000-200 UNIT UNIT UNIT Omeprazole Omeprazole No QD Omeprazole 40 MG 40 MG 40 MG metFORMIN metFORMIN No 1{table QD metFORMIN HCl 1000 MG HCl 1000 MG t_with_ HCl 1000 a_meal} MG Vitamin B12 Vitamin B12 No QD Vitamin 2500 2500 B12 2500 Montelukast Montelukast No 1{table QD Montelukas Sodium 10 Sodium 10 t} t Sodium MG MG 10 MG Omeprazole Omeprazole No QD Omeprazole 40 MG 40 MG 40 MG glipiZIDE glipiZIDE No glipiZIDE ER 10 MG ER 10 MG ER 10 MG Cod Liver Cod Liver No Cod Liver Oil Oil Oil 4000-200 4000-200 4000-200 UNIT UNIT UNIT Ramipril 10 Ramipril 10 No 1{capsu QD Ramipril MG MG le} 10 MG Montelukast Montelukast No 1{table QD Montelukas Sodium 10 Sodium 10 t} t Sodium MG MG 10 MG Atorvastati Atorvastati No 1{table QD Atorvastat n Calcium n Calcium t} in Calcium 20 MG 20 MG 20 MG Zovirax 5 % Zovirax 5 % No 1{appli Zovirax 5 cation} % Jardiance Jardiance No Jardiance 10 MG 10 MG 10 MG Vitamin D3 Vitamin D3 No Vitamin D3 125 MCG 125 MCG 125 MCG (5000 UT) (5000 UT) (5000 UT) Fluconazole Fluconazole No 1{table Fluconazol 100 MG 100 MG t} e 100 MG Diclofenac Diclofenac No Diclofenac Sodium 50 Sodium 50 Sodium 50 MG MG MG Levothyroxi Levothyroxi No QD Levothyrox ne Sodium ne Sodium ine Sodium 50 MCG 50 MCG 50 MCG Vitamin B12 Vitamin B12 No QD Vitamin 2500 2500 B12 2500 metFORMIN metFORMIN No metFORMIN HCl 1000 MG HCl 1000 MG HCl 1000 MG Oxybutynin Oxybutynin No 1{table BID Oxybutynin Chloride 5 Chloride 5 t} Chloride 5 MG MG MG Oxybutynin Oxybutynin No Oxybutynin Chloride 5 Chloride 5 Chloride 5 MG MG MG Zovirax 5 % Zovirax 5 % No 1{appli Zovirax 5 cation} % Oxybutynin Oxybutynin No Oxybutynin Chloride 5 Chloride 5 Chloride 5 MG MG MG Cod Liver Cod Liver No Cod Liver Oil Oil Oil 4000-200 4000-200 4000-200 UNIT UNIT UNIT Fluconazole Fluconazole No 1{table Fluconazol 100 MG 100 MG t} e 100 MG glipiZIDE glipiZIDE No glipiZIDE ER 10 MG ER 10 MG ER 10 MG Ramipril 10 Ramipril 10 No 1{capsu QD Ramipril MG MG le} 10 MG Atorvastati Atorvastati No 1{table QD Atorvastat n Calcium n Calcium t} in Calcium 20 MG 20 MG 20 MG Levothyroxi Levothyroxi No QD Levothyrox ne Sodium ne Sodium ine Sodium 50 MCG 50 MCG 50 MCG Diclofenac Diclofenac No Diclofenac Sodium 50 Sodium 50 Sodium 50 MG MG MG metFORMIN metFORMIN No metFORMIN HCl 1000 MG HCl 1000 MG HCl 1000 MG Oxybutynin Oxybutynin No 1{table BID Oxybutynin Chloride 5 Chloride 5 t} Chloride 5 MG MG MG Vitamin D3 Vitamin D3 No Vitamin D3 125 MCG 125 MCG 125 MCG (5000 UT) (5000 UT) (5000 UT) Jardiance Jardiance No Jardiance 10 MG 10 MG 10 MG Montelukast Montelukast No 1{table QD Montelukas Sodium 10 Sodium 10 t} t Sodium MG MG 10 MG Omeprazole Omeprazole No QD Omeprazole 40 MG 40 MG 40 MG Vitamin B12 Vitamin B12 No QD Vitamin 2500 2500 B12 2500 Cod Liver Cod Liver No Cod Liver Oil Oil Oil 4000-200 4000-200 4000-200 UNIT UNIT UNIT Zovirax 5 % Zovirax 5 % No 1{appli Zovirax 5 cation} % Vitamin D3 Vitamin D3 No Vitamin D3 125 MCG 125 MCG 125 MCG (5000 UT) (5000 UT) (5000 UT) Levothyroxi Levothyroxi No QD Levothyrox ne Sodium ne Sodium ine Sodium 50 MCG 50 MCG 50 MCG Vitamin B12 Vitamin B12 No QD Vitamin 2500 2500 B12 2500 Jardiance Jardiance No Jardiance 10 MG 10 MG 10 MG metFORMIN metFORMIN No metFORMIN HCl 1000 MG HCl 1000 MG HCl 1000 MG glipiZIDE glipiZIDE No glipiZIDE ER 10 MG ER 10 MG ER 10 MG Ramipril 10 Ramipril 10 No 1{capsu QD Ramipril MG MG le} 10 MG Oxybutynin Oxybutynin No 1{table BID Oxybutynin Chloride 5 Chloride 5 t} Chloride 5 MG MG MG Oxybutynin Oxybutynin No Oxybutynin Chloride 5 Chloride 5 Chloride 5 MG MG MG Atorvastati Atorvastati No 1{table QD Atorvastat n Calcium n Calcium t} in Calcium 20 MG 20 MG 20 MG Omeprazole Omeprazole No QD Omeprazole 40 MG 40 MG 40 MG Montelukast Montelukast No 1{table QD Montelukas Sodium 10 Sodium 10 t} t Sodium MG MG 10 MG Diclofenac Diclofenac No Diclofenac Sodium 50 Sodium 50 Sodium 50 MG MG MG Fluconazole Fluconazole No 1{table Fluconazol 100 MG 100 MG t} e 100 MG Cod Liver Cod Liver No Oil Oil 4000-200 4000-200 UNIT UNIT Zovirax 5 % Zovirax 5 % No 1{appli cation} Vitamin D3 Vitamin D3 No 125 MCG 125 MCG (5000 UT) (5000 UT) Levothyroxi Levothyroxi No QD ne Sodium ne Sodium 50 MCG 50 MCG Vitamin B12 Vitamin B12 No QD 2500 2500 Jardiance Jardiance No 10 MG 10 MG metFORMIN metFORMIN No HCl 1000 MG HCl 1000 MG glipiZIDE glipiZIDE No ER 10 MG ER 10 MG Ramipril 10 Ramipril 10 No 1{capsu QD MG MG le} Oxybutynin Oxybutynin No 1{table BID Chloride 5 Chloride 5 t} MG MG Oxybutynin Oxybutynin No Chloride 5 Chloride 5 MG MG Atorvastati Atorvastati No 1{table QD n Calcium n Calcium t} 20 MG 20 MG Omeprazole Omeprazole No QD 40 MG 40 MG Montelukast Montelukast No 1{table QD Sodium 10 Sodium 10 t} MG MG Diclofenac Diclofenac No Sodium 50 Sodium 50 MG MG Fluconazole Fluconazole No 1{table 100 MG 100 MG t} Vitamin B12 Vitamin B12 No QD Vitamin 2500 2500 B12 2500 Cod Liver Cod Liver No Cod Liver Oil Oil Oil 4000-200 4000-200 4000-200 UNIT UNIT UNIT Ramipril 10 Ramipril 10 No 1{capsu QD Ramipril MG MG le} 10 MG Vitamin D3 Vitamin D3 No Vitamin D3 125 MCG 125 MCG 125 MCG (5000 UT) (5000 UT) (5000 UT) Oxybutynin Oxybutynin No 1{table BID Oxybutynin Chloride 5 Chloride 5 t} Chloride 5 MG MG MG Jardiance Jardiance No Jardiance 10 MG 10 MG 10 MG metFORMIN metFORMIN No metFORMIN HCl 1000 MG HCl 1000 MG HCl 1000 MG Omeprazole Omeprazole No QD Omeprazole 40 MG 40 MG 40 MG glipiZIDE glipiZIDE No glipiZIDE ER 10 MG ER 10 MG ER 10 MG Diclofenac Diclofenac No Diclofenac Sodium 50 Sodium 50 Sodium 50 MG MG MG Fluconazole Fluconazole No 1{table Fluconazol 100 MG 100 MG t} e 100 MG Levothyroxi Levothyroxi No QD Levothyrox ne Sodium ne Sodium ine Sodium 50 MCG 50 MCG 50 MCG Oxybutynin Oxybutynin No Oxybutynin Chloride 5 Chloride 5 Chloride 5 MG MG MG Montelukast Montelukast No 1{table QD Montelukas Sodium 10 Sodium 10 t} t Sodium MG MG 10 MG Atorvastati Atorvastati No 1{table QD Atorvastat n Calcium n Calcium t} in Calcium 20 MG 20 MG 20 MG Zovirax 5 % Zovirax 5 % No 1{appli Zovirax 5 cation} % Ramipril 10 Ramipril 10 No 1{capsu QD Ramipril MG MG le} 10 MG Atorvastati Atorvastati No 1{table QD Atorvastat n Calcium n Calcium t} in Calcium 20 MG 20 MG 20 MG Fluconazole Fluconazole No 1{table Fluconazol 100 MG 100 MG t} e 100 MG Montelukast Montelukast No 1{table QD Montelukas Sodium 10 Sodium 10 t} t Sodium MG MG 10 MG Cod Liver Cod Liver No Cod Liver Oil Oil Oil 4000-200 4000-200 4000-200 UNIT UNIT UNIT Vitamin B12 Vitamin B12 No QD Vitamin 2500 2500 B12 2500 metFORMIN metFORMIN No metFORMIN HCl 1000 MG HCl 1000 MG HCl 1000 MG Zovirax 5 % Zovirax 5 % No 1{appli Zovirax 5 cation} % Diclofenac Diclofenac No Diclofenac Sodium 50 Sodium 50 Sodium 50 MG MG MG Oxybutynin Oxybutynin No 1{table BID Oxybutynin Chloride 5 Chloride 5 t} Chloride 5 MG MG MG Jardiance Jardiance No Jardiance 10 MG 10 MG 10 MG Levothyroxi Levothyroxi No QD Levothyrox ne Sodium ne Sodium ine Sodium 50 MCG 50 MCG 50 MCG Vitamin D3 Vitamin D3 No Vitamin D3 125 MCG 125 MCG 125 MCG (5000 UT) (5000 UT) (5000 UT) glipiZIDE glipiZIDE No glipiZIDE ER 10 MG ER 10 MG ER 10 MG Omeprazole Omeprazole No QD Omeprazole 40 MG 40 MG 40 MG metFORMIN metFORMIN No metFORMIN HCl 1000 MG HCl 1000 MG HCl 1000 MG Vitamin B12 Vitamin B12 No QD Vitamin 2500 2500 B12 2500 Fluconazole Fluconazole No 1{table Fluconazol 100 MG 100 MG t} e 100 MG Cod Liver Cod Liver No Cod Liver Oil Oil Oil 4000-200 4000-200 4000-200 UNIT UNIT UNIT Montelukast Montelukast No 1{table QD Montelukas Sodium 10 Sodium 10 t} t Sodium MG MG 10 MG Vitamin D3 Vitamin D3 No Vitamin D3 125 MCG 125 MCG 125 MCG (5000 UT) (5000 UT) (5000 UT) Jardiance Jardiance No Jardiance 10 MG 10 MG 10 MG Oxybutynin Oxybutynin No 1{table BID Oxybutynin Chloride 5 Chloride 5 t} Chloride 5 MG MG MG Omeprazole Omeprazole No QD Omeprazole 40 MG 40 MG 40 MG Atorvastati Atorvastati No 1{table QD Atorvastat n Calcium n Calcium t} in Calcium 20 MG 20 MG 20 MG Levothyroxi Levothyroxi No QD Levothyrox ne Sodium ne Sodium ine Sodium 50 MCG 50 MCG 50 MCG glipiZIDE glipiZIDE No glipiZIDE ER 10 MG ER 10 MG ER 10 MG Diclofenac Diclofenac No Diclofenac Sodium 50 Sodium 50 Sodium 50 MG MG MG Ramipril 10 Ramipril 10 No 1{capsu QD Ramipril MG MG le} 10 MG Zovirax 5 % Zovirax 5 % No 1{appli Zovirax 5 cation} % metFORMIN metFORMIN No metFORMIN HCl 1000 MG HCl 1000 MG HCl 1000 MG Vitamin B12 Vitamin B12 No QD Vitamin 2500 2500 B12 2500 Fluconazole Fluconazole No 1{table Fluconazol 100 MG 100 MG t} e 100 MG Cod Liver Cod Liver No Cod Liver Oil Oil Oil 4000-200 4000-200 4000-200 UNIT UNIT UNIT Montelukast Montelukast No 1{table QD Montelukas Sodium 10 Sodium 10 t} t Sodium MG MG 10 MG Vitamin D3 Vitamin D3 No Vitamin D3 125 MCG 125 MCG 125 MCG (5000 UT) (5000 UT) (5000 UT) Jardiance Jardiance No Jardiance 10 MG 10 MG 10 MG Oxybutynin Oxybutynin No 1{table BID Oxybutynin Chloride 5 Chloride 5 t} Chloride 5 MG MG MG Omeprazole Omeprazole No QD Omeprazole 40 MG 40 MG 40 MG Atorvastati Atorvastati No 1{table QD Atorvastat n Calcium n Calcium t} in Calcium 20 MG 20 MG 20 MG Levothyroxi Levothyroxi No QD Levothyrox ne Sodium ne Sodium ine Sodium 50 MCG 50 MCG 50 MCG glipiZIDE glipiZIDE No glipiZIDE ER 10 MG ER 10 MG ER 10 MG Diclofenac Diclofenac No Diclofenac Sodium 50 Sodium 50 Sodium 50 MG MG MG Ramipril 10 Ramipril 10 No 1{capsu QD Ramipril MG MG le} 10 MG Zovirax 5 % Zovirax 5 % No 1{appli Zovirax 5 cation} % metFORMIN metFORMIN No metFORMIN HCl 1000 MG HCl 1000 MG HCl 1000 MG Vitamin B12 Vitamin B12 No QD Vitamin 2500 2500 B12 2500 Fluconazole Fluconazole No 1{table Fluconazol 100 MG 100 MG t} e 100 MG Cod Liver Cod Liver No Cod Liver Oil Oil Oil 4000-200 4000-200 4000-200 UNIT UNIT UNIT Montelukast Montelukast No 1{table QD Montelukas Sodium 10 Sodium 10 t} t Sodium MG MG 10 MG Vitamin D3 Vitamin D3 No Vitamin D3 125 MCG 125 MCG 125 MCG (5000 UT) (5000 UT) (5000 UT) Jardiance Jardiance No Jardiance 10 MG 10 MG 10 MG Oxybutynin Oxybutynin No 1{table BID Oxybutynin Chloride 5 Chloride 5 t} Chloride 5 MG MG MG Omeprazole Omeprazole No QD Omeprazole 40 MG 40 MG 40 MG Atorvastati Atorvastati No 1{table QD Atorvastat n Calcium n Calcium t} in Calcium 20 MG 20 MG 20 MG Levothyroxi Levothyroxi No QD Levothyrox ne Sodium ne Sodium ine Sodium 50 MCG 50 MCG 50 MCG glipiZIDE glipiZIDE No glipiZIDE ER 10 MG ER 10 MG ER 10 MG Diclofenac Diclofenac No Diclofenac Sodium 50 Sodium 50 Sodium 50 MG MG MG Ramipril 10 Ramipril 10 No 1{capsu QD Ramipril MG MG le} 10 MG Zovirax 5 % Zovirax 5 % No 1{appli Zovirax 5 cation} % glipiZIDE glipiZIDE No glipiZIDE ER 10 MG ER 10 MG ER 10 MG Fluconazole Fluconazole No 1{table Fluconazol 100 MG 100 MG t} e 100 MG Vitamin B12 Vitamin B12 No QD Vitamin 2500 2500 B12 2500 Atorvastati Atorvastati No 1{table QD Atorvastat n Calcium n Calcium t} in Calcium 20 MG 20 MG 20 MG metFORMIN metFORMIN No metFORMIN HCl 1000 MG HCl 1000 MG HCl 1000 MG Jardiance Jardiance No Jardiance 10 MG 10 MG 10 MG Montelukast Montelukast No 1{table QD Montelukas Sodium 10 Sodium 10 t} t Sodium MG MG 10 MG Diclofenac Diclofenac No Diclofenac Sodium 50 Sodium 50 Sodium 50 MG MG MG Zovirax 5 % Zovirax 5 % No 1{appli Zovirax 5 cation} % Ramipril 10 Ramipril 10 No 1{capsu QD Ramipril MG MG le} 10 MG Omeprazole Omeprazole No QD Omeprazole 40 MG 40 MG 40 MG Cod Liver Cod Liver No Cod Liver Oil Oil Oil 4000-200 4000-200 4000-200 UNIT UNIT UNIT Vitamin D3 Vitamin D3 No Vitamin D3 125 MCG 125 MCG 125 MCG (5000 UT) (5000 UT) (5000 UT) Oxybutynin Oxybutynin No 1{table BID Oxybutynin Chloride 5 Chloride 5 t} Chloride 5 MG MG MG Levothyroxi Levothyroxi No QD Levothyrox ne Sodium ne Sodium ine Sodium 50 MCG 50 MCG 50 MCG glipiZIDE glipiZIDE No glipiZIDE ER 10 MG ER 10 MG ER 10 MG Fluconazole Fluconazole No 1{table Fluconazol 100 MG 100 MG t} e 100 MG Vitamin B12 Vitamin B12 No QD Vitamin 2500 2500 B12 2500 Atorvastati Atorvastati No 1{table QD Atorvastat n Calcium n Calcium t} in Calcium 20 MG 20 MG 20 MG metFORMIN metFORMIN No metFORMIN HCl 1000 MG HCl 1000 MG HCl 1000 MG Jardiance Jardiance No Jardiance 10 MG 10 MG 10 MG Montelukast Montelukast No 1{table QD Montelukas Sodium 10 Sodium 10 t} t Sodium MG MG 10 MG Diclofenac Diclofenac No Diclofenac Sodium 50 Sodium 50 Sodium 50 MG MG MG Zovirax 5 % Zovirax 5 % No 1{appli Zovirax 5 cation} % Ramipril 10 Ramipril 10 No 1{capsu QD Ramipril MG MG le} 10 MG Omeprazole Omeprazole No QD Omeprazole 40 MG 40 MG 40 MG Cod Liver Cod Liver No Cod Liver Oil Oil Oil 4000-200 4000-200 4000-200 UNIT UNIT UNIT Vitamin D3 Vitamin D3 No Vitamin D3 125 MCG 125 MCG 125 MCG (5000 UT) (5000 UT) (5000 UT) Oxybutynin Oxybutynin No 1{table BID Oxybutynin Chloride 5 Chloride 5 t} Chloride 5 MG MG MG Levothyroxi Levothyroxi No QD Levothyrox ne Sodium ne Sodium ine Sodium 50 MCG 50 MCG 50 MCG Jardiance Jardiance No Jardiance 10 MG 10 MG 10 MG Ramipril 10 Ramipril 10 No 1{capsu QD Ramipril MG MG le} 10 MG Zovirax 5 % Zovirax 5 % No 1{appli Zovirax 5 cation} % Montelukast Montelukast No Montelukas Sodium 10 Sodium 10 t Sodium MG MG 10 MG Cod Liver Cod Liver No Cod Liver Oil Oil Oil 4000-200 4000-200 4000-200 UNIT UNIT UNIT Ferrous Ferrous No Ferrous Sulfate 325 Sulfate 325 Sulfate (65 Fe) MG (65 Fe) MG 325 (65 Fe) MG Vitamin D3 Vitamin D3 No Vitamin D3 125 MCG 125 MCG 125 MCG (5000 UT) (5000 UT) (5000 UT) metFORMIN metFORMIN No metFORMIN HCl 1000 MG HCl 1000 MG HCl 1000 MG Diclofenac Diclofenac No Diclofenac Sodium 50 Sodium 50 Sodium 50 MG MG MG Atorvastati Atorvastati No Atorvastat n Calcium n Calcium in Calcium 20 MG 20 MG 20 MG Oxybutynin Oxybutynin No Oxybutynin Chloride 5 Chloride 5 Chloride 5 MG MG MG glipiZIDE glipiZIDE No glipiZIDE ER 10 MG ER 10 MG ER 10 MG Levothyroxi Levothyroxi No Levothyrox ne Sodium ne Sodium ine Sodium 50 MCG 50 MCG 50 MCG Vitamin B12 Vitamin B12 No QD Vitamin 2500 2500 B12 2500 Omeprazole Omeprazole No QD Omeprazole 40 MG 40 MG 40 MG Jardiance Jardiance No Jardiance 10 MG 10 MG 10 MG Ramipril 10 Ramipril 10 No 1{capsu QD Ramipril MG MG le} 10 MG Zovirax 5 % Zovirax 5 % No 1{appli Zovirax 5 cation} % Montelukast Montelukast No Montelukas Sodium 10 Sodium 10 t Sodium MG MG 10 MG Cod Liver Cod Liver No Cod Liver Oil Oil Oil 4000-200 4000-200 4000-200 UNIT UNIT UNIT Ferrous Ferrous No Ferrous Sulfate 325 Sulfate 325 Sulfate (65 Fe) MG (65 Fe) MG 325 (65 Fe) MG Vitamin D3 Vitamin D3 No Vitamin D3 125 MCG 125 MCG 125 MCG (5000 UT) (5000 UT) (5000 UT) metFORMIN metFORMIN No metFORMIN HCl 1000 MG HCl 1000 MG HCl 1000 MG Diclofenac Diclofenac No Diclofenac Sodium 50 Sodium 50 Sodium 50 MG MG MG Atorvastati Atorvastati No Atorvastat n Calcium n Calcium in Calcium 20 MG 20 MG 20 MG Oxybutynin Oxybutynin No Oxybutynin Chloride 5 Chloride 5 Chloride 5 MG MG MG glipiZIDE glipiZIDE No glipiZIDE ER 10 MG ER 10 MG ER 10 MG Levothyroxi Levothyroxi No Levothyrox ne Sodium ne Sodium ine Sodium 50 MCG 50 MCG 50 MCG Vitamin B12 Vitamin B12 No QD Vitamin 2500 2500 B12 2500 Omeprazole Omeprazole No QD Omeprazole 40 MG 40 MG 40 MG glipiZIDE glipiZIDE No glipiZIDE ER 10 MG ER 10 MG ER 10 MG Montelukast Montelukast No Montelukas Sodium 10 Sodium 10 t Sodium MG MG 10 MG Levothyroxi Levothyroxi No Levothyrox ne Sodium ne Sodium ine Sodium 50 MCG 50 MCG 50 MCG Atorvastati Atorvastati No Atorvastat n Calcium n Calcium in Calcium 20 MG 20 MG 20 MG Ramipril 10 Ramipril 10 No 1{capsu QD Ramipril MG MG le} 10 MG Vitamin D3 Vitamin D3 No Vitamin D3 125 MCG 125 MCG 125 MCG (5000 UT) (5000 UT) (5000 UT) Jardiance Jardiance No Jardiance 10 MG 10 MG 10 MG Cod Liver Cod Liver No Cod Liver Oil Oil Oil 4000-200 4000-200 4000-200 UNIT UNIT UNIT metFORMIN metFORMIN No metFORMIN HCl 1000 MG HCl 1000 MG HCl 1000 MG Zovirax 5 % Zovirax 5 % No 1{appli Zovirax 5 cation} % Zovirax 5 % Zovirax 5 % No 6xD Zovirax 5 % glipiZIDE glipiZIDE No glipiZIDE ER 10 MG ER 10 MG ER 10 MG Montelukast Montelukast No Montelukas Sodium 10 Sodium 10 t Sodium MG MG 10 MG Linzess 145 Linzess 145 No QD Linzess MCG MCG 145 MCG Vitamin D3 Vitamin D3 No Vitamin D3 125 MCG 125 MCG 125 MCG (5000 UT) (5000 UT) (5000 UT) Atorvastati Atorvastati No Atorvastat n Calcium n Calcium in Calcium 20 MG 20 MG 20 MG Jardiance Jardiance No Jardiance 10 MG 10 MG 10 MG metFORMIN metFORMIN No metFORMIN HCl 1000 MG HCl 1000 MG HCl 1000 MG Ramipril 10 Ramipril 10 No 1{capsu QD Ramipril MG MG le} 10 MG Zovirax 5 % Zovirax 5 % No 1{appli Zovirax 5 cation} % Levothyroxi Levothyroxi No Levothyrox ne Sodium ne Sodium ine Sodium 50 MCG 50 MCG 50 MCG Cod Liver Cod Liver No Cod Liver Oil Oil Oil 4000-200 4000-200 4000-200 UNIT UNIT UNIT Zovirax 5 % Zovirax 5 % No 6xD Zovirax 5 % Atorvastati Atorvastati No Atorvastat n Calcium n Calcium in Calcium 20 MG 20 MG 20 MG Cod Liver Cod Liver No Cod Liver Oil Oil Oil 4000-200 4000-200 4000-200 UNIT UNIT UNIT Zovirax 5 % Zovirax 5 % No 1{appli Zovirax 5 cation} % Montelukast Montelukast No Montelukas Sodium 10 Sodium 10 t Sodium MG MG 10 MG Levothyroxi Levothyroxi No Levothyrox ne Sodium ne Sodium ine Sodium 50 MCG 50 MCG 50 MCG glipiZIDE glipiZIDE No glipiZIDE ER 10 MG ER 10 MG ER 10 MG metFORMIN metFORMIN No metFORMIN HCl 1000 MG HCl 1000 MG HCl 1000 MG Zovirax 5 % Zovirax 5 % No 6xD Zovirax 5 % Vitamin D3 Vitamin D3 No Vitamin D3 125 MCG 125 MCG 125 MCG (5000 UT) (5000 UT) (5000 UT) Ramipril 10 Ramipril 10 No 1{capsu QD Ramipril MG MG le} 10 MG Jardiance Jardiance No Jardiance 10 MG 10 MG 10 MG Linzess 145 Linzess 145 No QD Linzess MCG MCG 145 MCG Atorvastati Atorvastati No Atorvastat n Calcium n Calcium in Calcium 20 MG 20 MG 20 MG Cod Liver Cod Liver No Cod Liver Oil Oil Oil 4000-200 4000-200 4000-200 UNIT UNIT UNIT Zovirax 5 % Zovirax 5 % No 1{appli Zovirax 5 cation} % Montelukast Montelukast No Montelukas Sodium 10 Sodium 10 t Sodium MG MG 10 MG Levothyroxi Levothyroxi No Levothyrox ne Sodium ne Sodium ine Sodium 50 MCG 50 MCG 50 MCG glipiZIDE glipiZIDE No glipiZIDE ER 10 MG ER 10 MG ER 10 MG metFORMIN metFORMIN No metFORMIN HCl 1000 MG HCl 1000 MG HCl 1000 MG Zovirax 5 % Zovirax 5 % No 6xD Zovirax 5 % Vitamin D3 Vitamin D3 No Vitamin D3 125 MCG 125 MCG 125 MCG (5000 UT) (5000 UT) (5000 UT) Ramipril 10 Ramipril 10 No 1{capsu QD Ramipril MG MG le} 10 MG Jardiance Jardiance No Jardiance 10 MG 10 MG 10 MG Linzess 145 Linzess 145 No QD Linzess MCG MCG 145 MCG Atorvastati Atorvastati No Atorvastat n Calcium n Calcium in Calcium 20 MG 20 MG 20 MG Zovirax 5 % Zovirax 5 % No 1{appli Zovirax 5 cation} % Cod Liver Cod Liver No Cod Liver Oil Oil Oil 4000-200 4000-200 4000-200 UNIT UNIT UNIT Ferrous Ferrous No BID Ferrous Sulfate 325 Sulfate 325 Sulfate (65 Fe) MG (65 Fe) MG 325 (65 Fe) MG Montelukast Montelukast No Montelukas Sodium 10 Sodium 10 t Sodium MG MG 10 MG Levothyroxi Levothyroxi No Levothyrox ne Sodium ne Sodium ine Sodium 50 MCG 50 MCG 50 MCG glipiZIDE glipiZIDE No glipiZIDE ER 10 MG ER 10 MG ER 10 MG metFORMIN metFORMIN No metFORMIN HCl 1000 MG HCl 1000 MG HCl 1000 MG Zovirax 5 % Zovirax 5 % No 6xD Zovirax 5 % Vitamin D3 Vitamin D3 No Vitamin D3 125 MCG 125 MCG 125 MCG (5000 UT) (5000 UT) (5000 UT) Ramipril 10 Ramipril 10 No 1{capsu QD Ramipril MG MG le} 10 MG Jardiance Jardiance No Jardiance 10 MG 10 MG 10 MG Linzess 145 Linzess 145 No QD Linzess MCG MCG 145 MCG Atorvastati Atorvastati No Atorvastat n Calcium n Calcium in Calcium 20 MG 20 MG 20 MG Zovirax 5 % Zovirax 5 % No 1{appli Zovirax 5 cation} % Cod Liver Cod Liver No Cod Liver Oil Oil Oil 4000-200 4000-200 4000-200 UNIT UNIT UNIT Ferrous Ferrous No BID Ferrous Sulfate 325 Sulfate 325 Sulfate (65 Fe) MG (65 Fe) MG 325 (65 Fe) MG Montelukast Montelukast No Montelukas Sodium 10 Sodium 10 t Sodium MG MG 10 MG Levothyroxi Levothyroxi No Levothyrox ne Sodium ne Sodium ine Sodium 50 MCG 50 MCG 50 MCG glipiZIDE glipiZIDE No glipiZIDE ER 10 MG ER 10 MG ER 10 MG metFORMIN metFORMIN No metFORMIN HCl 1000 MG HCl 1000 MG HCl 1000 MG Zovirax 5 % Zovirax 5 % No 6xD Zovirax 5 % Vitamin D3 Vitamin D3 No Vitamin D3 125 MCG 125 MCG 125 MCG (5000 UT) (5000 UT) (5000 UT) Ramipril 10 Ramipril 10 No 1{capsu QD Ramipril MG MG le} 10 MG Jardiance Jardiance No Jardiance 10 MG 10 MG 10 MG Linzess 145 Linzess 145 No QD Linzess MCG MCG 145 MCG Atorvastati Atorvastati No 1{table QD Atorvastat n Calcium n Calcium t} in Calcium 20 MG 20 MG 20 MG Levothyroxi Levothyroxi No QD Levothyrox ne Sodium ne Sodium ine Sodium 50 MCG 50 MCG 50 MCG glipiZIDE glipiZIDE No glipiZIDE ER 10 MG ER 10 MG ER 10 MG Ferrous Ferrous No BID Ferrous Sulfate 325 Sulfate 325 Sulfate (65 Fe) MG (65 Fe) MG 325 (65 Fe) MG Montelukast Montelukast No 1{table QD Montelukas Sodium 10 Sodium 10 t} t Sodium MG MG 10 MG Zovirax 5 % Zovirax 5 % No 1{appli Zovirax 5 cation} % metFORMIN metFORMIN No metFORMIN HCl 1000 MG HCl 1000 MG HCl 1000 MG Atorvastati Atorvastati No Atorvastat n Calcium n Calcium in Calcium 20 MG 20 MG 20 MG Montelukast Montelukast No Montelukas Sodium 10 Sodium 10 t Sodium MG MG 10 MG Ramipril 10 Ramipril 10 No 1{capsu QD Ramipril MG MG le} 10 MG Flonase 50 Flonase 50 No 2{spray QD Flonase 50 MCG/ACT MCG/ACT _in_eac MCG/ACT h_nostr il} Levothyroxi Levothyroxi No Levothyrox ne Sodium ne Sodium ine Sodium 50 MCG 50 MCG 50 MCG Cod Liver Cod Liver No Cod Liver Oil Oil Oil 4000-200 4000-200 4000-200 UNIT UNIT UNIT Linzess 145 Linzess 145 No QD Linzess MCG MCG 145 MCG Calcium + Calcium + No 1{table QD Calcium + D3 600-800 D3 600-800 t_with_ D3 600-800 MG-UNIT MG-UNIT a_meal} MG-UNIT Montelukast Montelukast No Montelukas Sodium 10 Sodium 10 t Sodium MG MG 10 MG Montelukast Montelukast No 1{table QD Montelukas Sodium 10 Sodium 10 t} t Sodium MG MG 10 MG Atorvastati Atorvastati No Atorvastat n Calcium n Calcium in Calcium 20 MG 20 MG 20 MG Atorvastati Atorvastati No 1{table QD Atorvastat n Calcium n Calcium t} in Calcium 20 MG 20 MG 20 MG glipiZIDE glipiZIDE No glipiZIDE ER 10 MG ER 10 MG ER 10 MG metFORMIN metFORMIN No metFORMIN HCl 1000 MG HCl 1000 MG HCl 1000 MG Ferrous Ferrous No BID Ferrous Sulfate 325 Sulfate 325 Sulfate (65 Fe) MG (65 Fe) MG 325 (65 Fe) MG Linzess 145 Linzess 145 No QD Linzess MCG MCG 145 MCG Levothyroxi Levothyroxi No QD Levothyrox ne Sodium ne Sodium ine Sodium 50 MCG 50 MCG 50 MCG Calcium + Calcium + No 1{table QD Calcium + D3 600-800 D3 600-800 t_with_ D3 600-800 MG-UNIT MG-UNIT a_meal} MG-UNIT Zovirax 5 % Zovirax 5 % No 1{appli Zovirax 5 cation} % Flonase 50 Flonase 50 No 2{spray QD Flonase 50 MCG/ACT MCG/ACT _in_eac MCG/ACT h_nostr il} Ramipril 10 Ramipril 10 No 1{capsu QD Ramipril MG MG le} 10 MG Levothyroxi Levothyroxi No Levothyrox ne Sodium ne Sodium ine Sodium 50 MCG 50 MCG 50 MCG Cod Liver Cod Liver No Cod Liver Oil Oil Oil 4000-200 4000-200 4000-200 UNIT UNIT UNIT Montelukast Montelukast No Montelukas Sodium 10 Sodium 10 t Sodium MG MG 10 MG Montelukast Montelukast No 1{table QD Montelukas Sodium 10 Sodium 10 t} t Sodium MG MG 10 MG Atorvastati Atorvastati No Atorvastat n Calcium n Calcium in Calcium 20 MG 20 MG 20 MG Atorvastati Atorvastati No 1{table QD Atorvastat n Calcium n Calcium t} in Calcium 20 MG 20 MG 20 MG glipiZIDE glipiZIDE No glipiZIDE ER 10 MG ER 10 MG ER 10 MG metFORMIN metFORMIN No metFORMIN HCl 1000 MG HCl 1000 MG HCl 1000 MG Ferrous Ferrous No BID Ferrous Sulfate 325 Sulfate 325 Sulfate (65 Fe) MG (65 Fe) MG 325 (65 Fe) MG Linzess 145 Linzess 145 No QD Linzess MCG MCG 145 MCG Levothyroxi Levothyroxi No QD Levothyrox ne Sodium ne Sodium ine Sodium 50 MCG 50 MCG 50 MCG Calcium + Calcium + No 1{table QD Calcium + D3 600-800 D3 600-800 t_with_ D3 600-800 MG-UNIT MG-UNIT a_meal} MG-UNIT Zovirax 5 % Zovirax 5 % No 1{appli Zovirax 5 cation} % Jardiance Jardiance 2020- No Jardiance 10 MG 10 MG 12-15 10 MG 00:00 :00 Jardiance Jardiance 2020- No Jardiance 10 MG 10 MG 12-15 10 MG 00:00 :00 Immunizations Ordered Immunization Filled Immunization Date Status Commen ts Source Name Name [address] [facility] (Low Dose Vaccine (Low Dose 11:21:00 - [facility] Booster) Booster) [facility] [address] [facility] Vaccine (Low Dose Vaccine (Low Dose 11:21:00 - [facility] Vaccine (Low Dose Vaccine (Low Dose 11:21:00 - [facility] [facility]23 Com[facility] Vaccine (Low Dose Vaccine (Low Dose 11:21:00 - [facility] Booster) Booster) [address] [facility]23 Com[facility] Vaccine (Low Dose Vaccine (Low Dose 11:21:00 - [facility] [facility]23 Com[facility] Vaccine (Low Dose Vaccine (Low Dose 11:21:00 - [facility] Booster) Booster) [facility] [address] [facility]-23 Com[facility] Vaccine (Low Dose Vaccine (Low Dose 11:21:00 - [facility] Booster) Booster) [facility] [address] [facility]-23 Com[facility] Vaccine (Low Dose Vaccine (Low Dose 11:21:00 - [facility]) [facility] [facility] 2021-09-23 Com[facility] Vaccine (Low Dose Vaccine (Low Dose 11:21:00 - [facility] Booster) Booster) [facility] COVID[address] COVID19 2021-09-23 Completed [facility] Vaccine (Low Dose Vaccine (Low Dose 11:21:00 - [facility] Booster) Booster) [facility] [address] COVID19 2021-09-23 Completed [facility] Vaccine (Low Dose Vaccine (Low Dose 11:21:00 - [facility] Booster) Booster) [facility] [address] COVID19 2021-09-23 Completed [facility] Vaccine (Low Dose Vaccine (Low Dose 11:21:00 - [facility] Booster) Booster) [facility] [address] COVID19 2021-09-23 Completed [facility] Vaccine (Low Dose Vaccine (Low Dose 11:21:00 - [facility] Booster) Booster) [facility] [address] [facility]23 Com[facility] Vaccine (Low Dose Vaccine (Low Dose 11:21:00 - [facility] Booster) Booster) [facility] [address] COVID19 2021-09-23 Completed [facility] Vaccine (Low Dose Vaccine (Low Dose 11:21:00 - [facility] Booster) Booster) [facility] [address] COVID19 2021-09-23 Completed [facility] Vaccine (Low Dose Vaccine (Low Dose 11:21:00 - [facility] Booster) Booster) [facility] COVID[address] COVID19 2021-09-23 Completed [facility] Vaccine (Low Dose Vaccine (Low Dose 11:21:00 - [facility] Booster) Booster) [facility] [address] COVID19 2021-09-23 Completed [facility] Vaccine (Low Dose Vaccine (Low Dose 11:21:00 - [facility] Booster) Booster) [facility] [address] COVID19 2021-09-23 Completed [facility] Vaccine (Low Dose Vaccine (Low Dose 11:21:00 - [facility] Booster) Booster) [facility] [address] COVID19 2021-09-23 Completed [facility] Vaccine (Low Dose Vaccine (Low Dose 11:21:00 - [facility] Booster) Booster) [facility] [address] COVID19 2021-09-23 Completed [facility] Vaccine (Low Dose Vaccine (Low Dose 11:21:00 - [facility] Booster) Booster) [facility] [address] [facility]23 Com[facility] Vaccine (Low Dose Vaccine (Low Dose 11:21:00 - [facility] Booster) Booster) [facility] [address] [facility]-23 Com[facility] Vaccine (Low Dose Vaccine (Low Dose 11:21:00 - [facility] Booster) Booster) [facility] [address] [facility]-23 Com[facility] Vaccine (Low Dose Vaccine (Low Dose 11:21:00 - [facility] Booster) Booster) [facility] [address] [facility]-23 Com[facility] Vaccine (Low Dose Vaccine (Low Dose 11:21:00 - [facility] Booster) Booster) [facility] [address] COVID19 2021-09-23 Completed [facility] Vaccine (Low Dose Vaccine (Low Dose 11:21:00 - [facility] Booster) Booster) [facility] [address] COVID19 2021-09-23 Completed [facility] Vaccine (Low Dose Vaccine (Low Dose 11:21:00 - [facility] Booster) Booster) [facility] [address] COVID19 2021-09-23 Completed [facility] Vaccine (Low Dose Vaccine (Low Dose 11:21:00 - [facility] Booster) Booster) [facility] [address] COVID19 2021-09-23 Completed [facility] Vaccine (Low Dose Vaccine (Low Dose 11:21:00 - [facility] Booster) Booster) [facility] [address] [facility]23 Com[facility]ine (Low Dose Vaccine (Low Dose 11:21:00 - [facility] Booster) Booster) [facility] COVID-19 Jose Mariaa COVID-19 2021-09-23 Completed [facility] Vaccine (Low Dose Vaccine (Low Dose 11:21:00 - [facility] Booster) Booster) [facility] FLUZONE HIGH DOSE FLUZONE HIGH DOSE 2021-07-14 Completed [facility] OVER 65 OVER 65 14:23:00 - [facility] FLUZONE HIGH DOSE FLUZONE HIGH DOSE 2021-07-14 Completed [facility] OVER 65 OVER 65 14:23:00 - [facility] FLUZONE HIGH DOSE FLUZONE HIGH DOSE 2021-07-14 Completed [facility] OVER 65 OVER 65 14:23:00 - [facility] FLUZONE HIGH DOSE FLUZONE HIGH DOSE 2021-07-14 Completed [facility] OVER 65 OVER 65 14:23:00 - [facility] FLUZONE HIGH DOSE FLUZONE HIGH DOSE 2021-07-14 Completed [facility] OVER 65 OVER 65 14:23:00 - [facility] FLUZONE HIGH DOSE FLUZONE HIGH DOSE 2021-07-14 Completed [facility] OVER 65 OVER 65 14:23:00 - [facility] FLUZONE HIGH DOSE FLUZONE HIGH DOSE 2021-07-14 Completed [facility] OVER 65 OVER 65 14:23:00 [facility] FLUZONE HIGH DOSE FLUZONE HIGH DOSE 2021-07-14 Completed [facility] OVER 65 OVER 65 14:23:00 - [facility] FLUZONE HIGH DOSE FLUZONE HIGH DOSE 2021-07-14 Completed [facility] OVER 65 OVER 65 14:23:00 - [facility] FLUZONE HIGH DOSE FLUZONE HIGH DOSE 2021-07-14 Completed [facility] OVER 65 OVER 65 14:23:00 [facility] FLUZONE HIGH DOSE FLUZONE HIGH DOSE 2021-07-14 Completed [facility] OVER 65 OVER 65 14:23:00 [facility] FLUZONE HIGH DOSE FLUZONE HIGH DOSE 2021-07-14 Completed [facility] OVER 65 OVER 65 14:23:00 - [facility] FLUZONE HIGH DOSE FLUZONE HIGH DOSE 2021-07-14 Completed [facility] OVER 65 OVER 65 14:23:00 - [facility] FLUZONE HIGH DOSE FLUZONE HIGH DOSE 2021-07-14 Completed [facility] OVER 65 OVER 65 14:23:00 - [facility] FLUZONE HIGH DOSE FLUZONE HIGH DOSE 2021-07-14 Completed [facility] OVER 65 OVER 65 14:23:00 - [facility] FLUZONE HIGH DOSE FLUZONE HIGH DOSE 2021-07-14 Completed [facility] OVER 65 OVER 65 14:23:00 - [facility] FLUZONE HIGH DOSE FLUZONE HIGH DOSE 2021-07-14 Completed [facility] OVER 65 OVER 65 14:23:00 - [facility] FLUZONE HIGH DOSE FLUZONE HIGH DOSE 2021-07-14 Completed [facility] OVER 65 OVER 65 14:23:00 - [facility] FLUZONE HIGH DOSE FLUZONE HIGH DOSE 2021-07-14 Completed [facility] OVER 65 OVER 65 14:23:00 - [facility] FLUZONE HIGH DOSE FLUZONE HIGH DOSE 2021-07-14 Completed [facility] OVER 65 OVER 65 14:23:00 - [facility] FLUZONE HIGH DOSE FLUZONE HIGH DOSE 2021-07-14 Completed [facility] OVER 65 OVER 65 14:23:00 - [facility] FLUZONE HIGH DOSE FLUZONE HIGH DOSE 2021-07-14 Completed [facility] OVER 65 OVER 65 14:23:00 - [facility] FLUZONE HIGH DOSE FLUZONE HIGH DOSE 2021-07-14 Completed [facility] OVER 65 OVER 65 14:23:00 - [facility] FLUZONE HIGH DOSE FLUZONE HIGH DOSE 2021-07-14 Completed [facility] OVER 65 OVER 65 14:23:00 [facility] FLUZONE HIGH DOSE FLUZONE HIGH DOSE 2021-07-14 Completed [facility] OVER 65 OVER 65 14:23:00 [facility] FLUZONE HIGH DOSE FLUZONE HIGH DOSE 2021-07-14 Completed [facility] OVER 65 OVER 65 14:23:00 - [facility] FLUZONE HIGH DOSE FLUZONE HIGH DOSE 2021-07-14 Completed [facility] OVER 65 OVER 65 14:23:00 - [facility] FLUZONE HIGH DOSE FLUZONE HIGH DOSE 2021-07-14 Completed [facility] OVER 65 OVER 65 14:23:00 - [facility] FLUZONE HIGH DOSE FLUZONE HIGH DOSE 2021-07-14 Completed [facility] OVER 65 OVER 65 14:23:00 - [facility] FLUZONE HIGH DOSE FLUZONE HIGH DOSE 2021-07-14 Completed [facility] OVER 65 OVER 65 14:23:00 - [facility] FLUZONE HIGH DOSE FLUZONE HIGH DOSE 2021-07-14 Completed [facility] OVER 65 OVER 65 14:23:00 - [facility] FLUZONE HIGH DOSE FLUZONE HIGH DOSE 2021-07-14 Completed [facility] OVER 65 OVER 65 14:23:00 - [facility] FLUZONE HIGH DOSE FLUZONE HIGH DOSE 2021-07-14 Completed [facility] OVER 65 OVER 65 14:23:00 - [facility] FLUZONE HIGH DOSE FLUZONE HIGH DOSE 2021-07-14 Completed [facility] OVER 65 OVER 65 14:23:00 - [facility] Moderna COVID-19 Moderna COVID-19 2020-12-10 Completed [facility] Vaccine Vaccine 14:00:00 [facility] Moderna COVID-19 Moderna COVID-19 2020-12-10 Completed [facility] Vaccine Vaccine 14:00:00 [facility] Moderna COVID-19 Moderna COVID-19 2020-12-10 Completed [facility] Vaccine Vaccine 14:00:00 [facility] Moderna COVID-19 Moderna COVID-19 2020-12-10 Completed [facility] Vaccine Vaccine 14:00:00 [facility] Moderna COVID-19 Moderna COVID-19 2020-12-10 Completed [facility] Vaccine Vaccine 14:00:00 [facility] Moderna COVID-19 Moderna COVID-19 2020-12-10 Completed [facility] Vaccine Vaccine 14:00:00 [facility] Moderna COVID-19 Moderna COVID-19 2020-12-10 Completed [facility] Vaccine Vaccine 14:00:00 [facility] Moderna COVID-19 Moderna COVID-19 2020-12-10 Completed [facility] Vaccine Vaccine 14:00:00 [facility] Moderna COVID-19 Moderna COVID-19 2020-12-10 Completed [facility] Vaccine Vaccine 14:00:00 [facility] Moderna COVID-19 Moderna COVID-19 2020-12-10 Completed [facility] Vaccine Vaccine 14:00:00 [facility] Moderna COVID-19 Moderna COVID-19 2020-12-10 Completed [facility] Vaccine Vaccine 14:00:00 [facility] Moderna COVID-19 Moderna COVID-19 2020-12-10 Completed [facility] Vaccine Vaccine 14:00:00 [facility] Moderna COVID-19 Moderna COVID-19 2020-12-10 Completed [facility] Vaccine Vaccine 14:00:00 [facility] Moderna COVID-19 Moderna COVID-19 2020-12-10 Completed [facility] Vaccine Vaccine 14:00:00 [facility] Moderna COVID-19 Moderna COVID-19 2020-12-10 Completed [facility] Vaccine Vaccine 14:00:00 [facility] Moderna COVID-19 Moderna COVID-19 2020-12-10 Completed [facility] Vaccine Vaccine 14:00:00 [facility] Moderna COVID-19 Moderna COVID-19 2020-12-10 Completed [facility] Vaccine Vaccine 14:00:00 [facility] Moderna COVID-19 Moderna COVID-19 2020-12-10 Completed [facility] Vaccine Vaccine 14:00:00 [facility] Moderna COVID-19 Moderna COVID-19 2020-12-10 Completed [facility] Vaccine Vaccine 14:00:00 [facility] Moderna COVID-19 Moderna COVID-19 2020-12-10 Completed [facility] Vaccine Vaccine 14:00:00 [facility] Moderna COVID-19 Moderna COVID-19 2020-12-10 Completed [facility] Vaccine Vaccine 14:00:00 [facility] Moderna COVID-19 Moderna COVID-19 2020-12-10 Completed [facility] Vaccine Vaccine 14:00:00 [facility] Moderna COVID-19 Moderna COVID-19 2020-12-10 Completed [facility] Vaccine Vaccine 14:00:00 [facility] Moderna COVID-19 Moderna COVID-19 2020-12-10 Completed [facility] Vaccine Vaccine 14:00:00 [facility] Moderna COVID-19 Moderna COVID-19 2020-12-10 Completed [facility] Vaccine Vaccine 14:00:00 [facility] Moderna COVID-19 Moderna COVID-19 2020-12-10 Completed [facility] Vaccine Vaccine 14:00:00 [facility] Moderna COVID-19 Moderna COVID-19 2020-12-10 Completed [facility] Vaccine Vaccine 14:00:00 [facility] Moderna COVID-19 Moderna COVID-19 2020-12-10 Completed [facility] Vaccine Vaccine 14:00:00 [facility] Moderna COVID-19 Moderna COVID-19 2020-12-10 Completed [facility] Vaccine Vaccine 14:00:00 [facility] Moderna COVID-19 Moderna COVID-19 2020-12-10 Completed [facility] Vaccine Vaccine 14:00:00 [facility] Moderna COVID-19 Moderna COVID-19 2020-12-10 Completed [facility] Vaccine Vaccine 14:00:00 [facility] Moderna COVID-19 Moderna COVID-19 2020-12-10 Completed [facility] Vaccine Vaccine 14:00:00 [facility] Moderna COVID-19 Moderna COVID-19 2020-12-10 Completed [facility] Vaccine Vaccine 14:00:00 [facility] Moderna COVID-19 Moderna COVID-19 2020-12-10 Completed [facility] Vaccine Vaccine 14:00:00 - [facility] Moderna COVID-19 Moderna COVID-19 2020-11-12 Completed [facility] Vaccine Vaccine 13:59:00 - [facility] Moderna COVID-19 Moderna COVID-19 2020-11-12 Completed [facility] Vaccine Vaccine 13:59:00 - [facility] Moderna COVID-19 Moderna COVID-19 2020-11-12 Completed [facility] Vaccine Vaccine 13:59:00 - [facility] Moderna COVID-19 Moderna COVID-19 2020-11-12 Completed [facility] Vaccine Vaccine 13:59:00 - [facility] Moderna COVID-19 Moderna COVID-19 2020-11-12 Completed [facility] Vaccine Vaccine 13:59:00 - [facility] Moderna COVID-19 Moderna COVID-19 2020-11-12 Completed [facility] Vaccine Vaccine 13:59:00 - [facility] Moderna COVID-19 Moderna COVID-19 2020-11-12 Completed [facility] Vaccine Vaccine 13:59:00 - [facility] Moderna COVID-19 Moderna COVID-19 2020-11-12 Completed [facility] Vaccine Vaccine 13:59:00 - [facility] Moderna COVID-19 Moderna COVID-19 2020-11-12 Completed [facility] Vaccine Vaccine 13:59:00 - [facility] Moderna COVID-19 Moderna COVID-19 2020-11-12 Completed [facility] Vaccine Vaccine 13:59:00 - [facility] Moderna COVID-19 Moderna COVID-19 2020-11-12 Completed [facility] Vaccine Vaccine 13:59:00 - [facility] Moderna COVID-19 Moderna COVID-19 2020-11-12 Completed [facility] Vaccine Vaccine 13:59:00 - [facility] Moderna COVID-19 Moderna COVID-19 2020-11-12 Completed [facility] Vaccine Vaccine 13:59:00 - [facility] Moderna COVID-19 Moderna COVID-19 2020-11-12 Completed [facility] Vaccine Vaccine 13:59:00 - [facility] Moderna COVID-19 Moderna COVID-19 2020-11-12 Completed [facility] Vaccine Vaccine 13:59:00 - [facility] Moderna COVID-19 Moderna COVID-19 2020-11-12 Completed [facility] Vaccine Vaccine 13:59:00 - [facility] Moderna COVID-19 Moderna COVID-19 2020-11-12 Completed [facility] Vaccine Vaccine 13:59:00 - [facility] Moderna COVID-19 Moderna COVID-19 2020-11-12 Completed [facility] Vaccine Vaccine 13:59:00 - [facility] Moderna COVID-19 Moderna COVID-19 2020-11-12 Completed [facility] Vaccine Vaccine 13:59:00 - [facility] Moderna COVID-19 Moderna COVID-19 2020-11-12 Completed [facility] Vaccine Vaccine 13:59:00 - [facility] Moderna COVID-19 Moderna COVID-19 2020-11-12 Completed [facility] Vaccine Vaccine 13:59:00 - [facility] Moderna COVID-19 Moderna COVID-19 2020-11-12 Completed [facility] Vaccine Vaccine 13:59:00 - [facility] Moderna COVID-19 Moderna COVID-19 2020-11-12 Completed [facility] Vaccine Vaccine 13:59:00 - [facility] Moderna COVID-19 Moderna COVID-19 2020-11-12 Completed [facility] Vaccine Vaccine 13:59:00 - [facility] Moderna COVID-19 Moderna COVID-19 2020-11-12 Completed [facility] Vaccine Vaccine 13:59:00 - [facility] Moderna COVID-19 Moderna COVID-19 2020-11-12 Completed [facility] Vaccine Vaccine 13:59:00 - [facility] Moderna COVID-19 Moderna COVID-19 2020-11-12 Completed [facility] Vaccine Vaccine 13:59:00 - [facility] Moderna COVID-19 Moderna COVID-19 2020-11-12 Completed [facility] Vaccine Vaccine 13:59:00 - [facility] Moderna COVID-19 Moderna COVID-19 2020-11-12 Completed [facility] Vaccine Vaccine 13:59:00 - [facility] Moderna COVID-19 Moderna COVID-19 2020-11-12 Completed [facility] Vaccine Vaccine 13:59:00 - [facility] Moderna COVID-19 Moderna COVID-19 2020-11-12 Completed [facility] Vaccine Vaccine 13:59:00 - [facility] Moderna COVID-19 Moderna COVID-19 2020-11-12 Completed [facility] Vaccine Vaccine 13:59:00 - [facility] Moderna COVID-19 Moderna COVID-19 2020-11-12 Completed [facility] Vaccine Vaccine 13:59:00 - [facility] Moderna COVID-19 Moderna COVID-19 2020-11-12 Completed [facility] Vaccine Vaccine 13:59:00 - [facility] Shingrix Shingrix 2020-09-11 Completed [facility] 13:58:00 - [facility] Shingrix Shingrix 2020-09-11 Completed [facility] 13:58:00 - [facility] Shingrix Shingrix 2020-09-11 Completed [facility] 13:58:00 - [facility] Shingrix Shingrix 2020-09-11 Completed [facility] 13:58:00 - [facility] Shingrix Shingrix 2020-09-11 Completed [facility] 13:58:00 - [facility] Shingrix Shingrix 2020-09-11 Completed [facility] 13:58:00 - [facility] Shingrix Shingrix 2020-09-11 Completed [facility] 13:58:00 - [facility] Shingrix Shingrix 2020-09-11 Completed [facility] 13:58:00 - [facility] Shingrix Shingrix 2020-09-11 Completed [facility] 13:58:00 - [facility] Shingrix Shingrix 2020-09-11 Completed [facility] 13:58:00 - [facility] Shingrix Shingrix 2020-09-11 Completed [facility] 13:58:00 - [facility] Shingrix Shingrix 2020-09-11 Completed [facility] 13:58:00 - [facility] Shingrix Shingrix 2020-09-11 Completed [facility] 13:58:00 - [facility] Shingrix Shingrix 2020-09-11 Completed [facility] 13:58:00 - [facility] Shingrix Shingrix 2020-09-11 Completed [facility] 13:58:00 - [facility] Shingrix Shingrix 2020-09-11 Completed [facility] 13:58:00 - [facility] Shingrix Shingrix 2020-09-11 Completed [facility] 13:58:00 - [facility] Shingrix Shingrix 2020-09-11 Completed [facility] 13:58:00 - [facility] Shingrix Shingrix 2020-09-11 Completed [facility] 13:58:00 - [facility] Shingrix Shingrix 2020-09-11 Completed [facility] 13:58:00 - [facility] Shingrix Shingrix 2020-09-11 Completed [facility] 13:58:00 - [facility] Shingrix Shingrix 2020-09-11 Completed [facility] 13:58:00 - [facility] Shingrix Shingrix 2020-09-11 Completed [facility] 13:58:00 - [facility] Shingrix Shingrix 2020-09-11 Completed [facility] 13:58:00 - [facility] Shingrix Shingrix 2020-09-11 Completed [facility] 13:58:00 - [facility] Shingrix Shingrix 2020-09-11 Completed [facility] 13:58:00 - [facility] Shingrix Shingrix 2020-09-11 Completed [facility] 13:58:00 - [facility] Shingrix Shingrix 2020-09-11 Completed [facility] 13:58:00 - [facility] Shingrix Shingrix 2020-09-11 Completed [facility] 13:58:00 - [facility] Shingrix Shingrix 2020-09-11 Completed [facility] 13:58:00 - [facility] Shingrix Shingrix 2020-09-11 Completed [facility] 13:58:00 - [facility] Shingrix Shingrix 2020-09-11 Completed [facility] 13:58:00 - [facility] Shingrix Shingrix 2020-09-11 Completed [facility] 13:58:00 - [facility] Shingrix Shingrix 2020-09-11 Completed [facility] 13:58:00 [facility] Vital Signs Vital Name Observation Time Observation Value Comments Source height 2022-08-12 09:20:00 61.75 [in_i] [facility] weight 2022-08-12 09:20:00 240.6 [lb_av] [facility] temperature 2022-08-12 09:20:00 98.2 [degF] [facility] bmi 2022-08-12 09:20:00 44.36 kg/m2 [facility] oximetry 2022-08-12 09:20:00 98 % [facility] respiratory rate 2022-08-12 09:20:00 17 /min Comm on [facility] blood pressure 2022-08-12 09:20:00 134 mm[Hg] Common [facility] - systolic [facility] blood pressure 2022-08-12 09:20:00 72 mm[Hg] Common [facility] - diastolic [facility] height 2022-08-12 09:00:00 61.75 [in_i] [facility] weight 2022-08-12 09:00:00 240.6 [lb_av] [facility] temperature 2022-08-12 09:00:00 98.2 [degF] [facility] bmi 2022-08-12 09:00:00 44.36 kg/m2 [facility] oximetry 2022-08-12 09:00:00 98 % [facility] respiratory rate 2022-08-12 09:00:00 17 /min Comm on [facility] blood pressure 2022-08-12 09:00:00 134 mm[Hg] Common [facility] - systolic [facility] blood pressure 2022-08-12 09:00:00 72 mm[Hg] [facility] - diastolic [facility] height 2022-06-24 14:15:00 61.75 [in_i] [facility] weight 2022-06-24 14:15:00 234 [[facility]_av] [facility] temperature 2022-06-24 14:15:00 97.2 [degF] [facility] bmi 2022-06-24 14:15:00 43.14 kg/m2 [facility] oximetry 2022-06-24 14:15:00 98 % [facility] respiratory rate 2022-06-24 14:15:00 16 /min Comm on [facility] blood pressure 2022-06-24 14:15:00 121 mm[Hg] Common [facility] - systolic [facility] blood pressure 2022-06-24 14:15:00 60 mm[Hg] [facility] - diastolic [facility] height 2022-05-19 11:45:00 61.75 [in_i] [facility] weight 2022-05-19 11:45:00 238 [lb_av] [facility] temperature 2022-05-19 11:45:00 97.5 [degF] [facility] bmi 2022-05-19 11:45:00 43.88 kg/m2 [facility] oximetry 2022-05-19 11:45:00 94 % Common [facility] respiratory rate 2022-05-19 11:45:00 18 /min Comm on [facility] blood pressure 2022-05-19 11:45:00 139 mm[Hg] Common [facility] - systolic [facility] blood pressure 2022-05-19 11:45:00 63 mm[Hg] Common [facility] - diastolic [facility] height 2022-05-18 09:40:00 61.75 [in_i] Common [facility] weight 2022-05-18 09:40:00 238 [lb_av] [facility] temperature 2022-05-18 09:40:00 97.3 [degF] [facility] bmi 2022-05-18 09:40:00 43.88 kg/m2 [facility] oximetry 2022-05-18 09:40:00 96 % [facility] respiratory rate 2022-05-18 09:40:00 17 /min Comm on [facility] blood pressure 2022-05-18 09:40:00 128 mm[Hg] Common [facility] systolic [facility] blood pressure 2022-05-18 09:40:00 70 mm[Hg] Common [facility] diastolic [facility] height 2022-03-23 10:40:00 61.5 [in_i] Common [facility] weight 2022-03-23 10:40:00 231.0 [lb_av] Common [facility] temperature 2022-03-23 10:40:00 98.0 [degF] Common [facility] bmi 2022-03-23 10:40:00 42.94 kg/m2 [facility] oximetry 2022-03-23 10:40:00 97 % [facility] respiratory rate 2022-03-23 10:40:00 17 /min Comm on [facility] blood pressure 2022-03-23 10:40:00 136 mm[Hg] [facility] - systolic [facility] blood pressure 2022-03-23 10:40:00 60 mm[Hg] [facility] - diastolic [facility] height 2022-02-15 14:00:00 61.5 [in_i] [facility] weight 2022-02-15 14:00:00 231.2 [lb_av] Common [facility] - [facility] temperature 2022-02-15 14:00:00 97.6 [degF] [facility] bmi 2022-02-15 14:00:00 42.97 kg/m2 [facility] oximetry 2022-02-15 14:00:00 98 % [facility] respiratory rate 2022-02-15 14:00:00 16 /min Comm on [facility] blood pressure 2022-02-15 14:00:00 153 mm[Hg] [facility] - systolic [facility] blood pressure 2022-02-15 14:00:00 67 mm[Hg] [facility] - diastolic [facility] height 2022-02-04 10:00:00 61.5 [in_i] [facility] weight 2022-02-04 10:00:00 227 [lb_av] [facility] temperature 2022-02-04 10:00:00 97.2 [degF] [facility] bmi 2022-02-04 10:00:00 42.19 kg/m2 [facility] oximetry 2022-02-04 10:00:00 98 % [facility] respiratory rate 2022-02-04 10:00:00 16 /min Comm on [facility] blood pressure 2022-02-04 10:00:00 148 mm[Hg] Common [facility] - systolic [facility] blood pressure 2022-02-04 10:00:00 68 mm[Hg] [facility] - diastolic [facility] height 2021-12-11 14:00:00 61.5 [in_i] [facility] weight 2021-12-11 14:00:00 229.2 [lb_av] Common [facility] temperature 2021-12-11 14:00:00 97.2 [degF] Common [facility] bmi 2021-12-11 14:00:00 42.60 kg/m2 [facility] oximetry 2021-12-11 14:00:00 96 % [facility] respiratory rate 2021-12-11 14:00:00 16 /min Comm on [facility] blood pressure 2021-12-11 14:00:00 116 mm[Hg] Common [facility] - systolic [facility] blood pressure 2021-12-11 14:00:00 56 mm[Hg] Common [facility] - diastolic [facility] height 2021-11-26 10:00:00 61.5 [in_i] Common [facility] weight 2021-11-26 10:00:00 231 [lb_av] [facility] temperature 2021-11-26 10:00:00 96.8 [degF] [facility] bmi 2021-11-26 10:00:00 42.94 kg/m2 [facility] oximetry 2021-11-26 10:00:00 98 % [facility] respiratory rate 2021-11-26 10:00:00 19 /min Comm on [facility] blood pressure 2021-11-26 10:00:00 120 mm[Hg] [facility] - systolic [facility] blood pressure 2021-11-26 10:00:00 57 mm[Hg] [facility] - diastolic [facility] height 2021-10-09 08:40:00 61.5 [in_i] [facility] weight 2021-10-09 08:40:00 231.2 [lb_av] Common [facility] temperature 2021-10-09 08:40:00 97.2 [degF] Common [facility] bmi 2021-10-09 08:40:00 42.97 kg/m2 Common [facility] oximetry 2021-10-09 08:40:00 98 % Common [facility] respiratory rate 2021-10-09 08:40:00 16 /min Comm on [facility] blood pressure 2021-10-09 08:40:00 132 mm[Hg] Common [facility] - systolic [facility] blood pressure 2021-10-09 08:40:00 78 mm[Hg] Common [facility] - diastolic [facility] height 2021-07-14 14:20:00 61.5 [in_i] Common [facility] weight 2021-07-14 14:20:00 232.6 [lb_av] Common [facility] temperature 2021-07-14 14:20:00 97.6 [degF] Common [facility] bmi 2021-07-14 14:20:00 43.23 kg/m2 [facility] oximetry 2021-07-14 14:20:00 98 % [facility] respiratory rate 2021-07-14 14:20:00 16 /min Comm on [facility] blood pressure 2021-07-14 14:20:00 123 mm[Hg] Common [facility] - systolic [facility] blood pressure 2021-07-14 14:20:00 61 mm[Hg] Common [facility] - diastolic [facility] Systolic blood 2021-06-11 20:43:00 154 mm[Hg] [facility] Diastolic blood 2021-06-11 20:43:00 72 mm[Hg] Unive rsity of pressure [facility] Heart rate 2021-06-11 20:43:00 75 /min [facility] Body temperature 2021-06-11 20:43:00 36.44 Angelica [facility] Respiratory rate 2021-06-11 20:43:00 20 /min [facility] Oxygen saturation in 2021-06-11 20:43:00 97 /min [facility] blood by [facility] Pulse oximetry [facility] Body height 2021-06-11 19:55:00 160 cm [facility] Body weight 2021-06-11 19:55:00 102.059 kg [facility] BMI 2021-06-11 19:55:00 39.86 kg/m2 [facility] Procedures Procedure Date / Time Performed Performing Clinician Sour e CONSENT/REFUSAL FOR 2021-06-11 05:01:00 Doctor Unassigned, No [facility] DIAGNOSIS AND Name [facility] [place] TREATMENT ASSIGNMENT OF BENEFITS 2020-08-20 16:21:03 Doctor Unassigned, No [facility] Encounters Start End Encounter Admission Attending Care Care Encounter Source Date/Time Date/Time Type Type Clinicians Facility Department ID 2022-11-01 Outpatient Lilian, STLMLC STLMLC [id number] Common 17:08:00 Autumn [id number] [facility] 2022-08-11 Outpatient Enrique, Na STLMLC STLMLC [id number] Common 11:08:00 [id number] [facility] 2022-05-14 Outpatient Enrique, Na STLMLC STLMLC [id number] 2 Common 13:36:00 [facility] 2022-05-13 Outpatient Enrique, Na STLMLC STLMLC [id number] 2 Common 13:34:00 [facility] 2022-03-22 Outpatient Enrique, Na STLMLC STLMLC [id number] Common 09:52:01 [facility] 2022-02-15 Outpatient Enrique, Na STLMLC STLMLC [id number] 2 Common 16:29:00 [facility] 2021-12-11 Outpatient Enrique, Na STLMLC STLMLC [id number] 2 Common 14:08:01 [facility] 2021-11-26 Outpatient Enrique, Na STLMLC STLMLC [id number] 2 Common 09:39:01 [facility] 2021-10-09 Outpatient Enrique, Na STLMLC STLMLC [id number] 2 Common 08:40:01 [facility] 2021-10-08 Outpatient Enrique, Na STLMLC STLMLC [id number] 2 Common 16:41:00 [facility] 2021-10-07 Outpatient Enrique, Na STLMLC STLMLC [id number] 2 Common 14:36:59 [facility] 2021-10-07 Outpatient Enrique, Na STLMLC STLMLC [id number] 2 Common 14:24:28 [id number] [facility] 2021-10-07 Outpatient Enrique, Na STLMLC STLMLC [id number] 2 Common 14:24:11 [id number] [facility] 2021-10-07 Outpatient Enrique, Na STLMLC STLMLC [id number] 2 Common 14:19:29 [id number] [facility] 2021-10-07 Outpatient Enrique, Na STLMLC STLMLC [id number] 2 Common 14:13:38 [id number] [facility] 2021-10-07 Outpatient STLMLC STLMLC Common 14:07:27 [id number] [facility] 2021-10-07 Outpatient STLMLC STLMLC Common 13:54:41 [id number] [facility] 2021-10-07 Outpatient Ware, STLMLC STLMLC Common 13:46:42 Ivonne [id number] [facility] 2021-10-07 Outpatient Ware, STLMLC STLMLC Common 13:41:27 Ivonne [id number] [facility] 2021-10-07 Outpatient Ware, STLMLC STLMLC Common 13:24:52 Ivonne [id number] [facility] 2022-08-13 2022-08-13 (TEL) STLMLC STLMLC [id number] [facility] 00:00:00 00:00:00 [facility] 2022-08-12 2022-08-12 SUB ANNUAL STLMLC STLMLC [id number] Common 00:00:00 00:00:00 [facility] WELLNESS - [facility] VIS[facility] 2022-08-12 2022-08-12 OFFICE STLMLC STLMLC [id number] [facility] 00:00:00 00:00:00 VISIT EST Spir it PT LEVEL 3 [facility] 2022-07-01 2022-07-01 (TEL) STLMLC STLMLC [id number] Co [facility]mon 00:00:00 00:00:00 [facility] 2022-06-24 2022-06-24 OFFICE STLMLC STLMLC [id number] Co [facility]mon 00:00:00 00:00:00 VISIT EST Spir it PT LEVEL 3 - [facility] 2022-05-28 2022-05-28 (TEL) STLMLC STLMLC [id number] Co mmon 00:00:00 00:00:00 [facility] 2022-05-24 2022-05-24 (PROC) STLMLC STLMLC [id number] [facility] 00:00:00 00:00:00 Procedure Spir it - [facility] 2022-05-19 2022-05-19 OFFICE STLMLC STLMLC [id number] Co [facility]mon 00:00:00 00:00:00 VISIT Spirit ESTAB PT - CHI LEVEL 2 [facility] 2022-05-18 2022-05-18 (TEL) STLMLC STLMLC [id number] Co [facility]mon 00:00:00 00:00:00 [facility] 2022-05-18 2022-05-18 OFFICE STLMLC STLMLC [id number] [facility] 00:00:00 00:00:00 [facility] ESTAB PT - CHI LEVEL 4 [facility] 2022-03-31 2022-03-31 (TEL) STLMLC STLMLC [id number] [facility]mon 00:00:00 00:00:00 [facility] 2022-03-24 2022-03-24 (TEL) STLMLC STLMLC [id number] Co [facility]mon 00:00:00 00:00:00 [facility] 2022-03-23 2022-03-23 OFFICE STLMLC STLMLC [id number] Co mmon 00:00:00 00:00:00 VISIT EST Spir it PT LEVEL 3 [facility] 2022-03-22 2022-03-22 (TEL) STLMLC STLMLC [id number] Co mmon 00:00:00 00:00:00 [facility] 2022-03-05 2022-03-05 (TEL) STLMLC STLMLC [id number] Co [facility] 00:00:00 00:00:00 [facility] 2022-03-01 2022-03-01 (TEL) STLMLC STLMLC [id number] Co mmon 00:00:00 00:00:00 [facility] 2022-02-15 2022-02-15 OFFICE STLMLC STLMLC [id number] Co mmon 00:00:00 00:00:00 VISIT NEW Spir it PT LEVEL 3 [facility] 2022-02-04 2022-02-04 OFFICE STLMLC STLMLC [id number] Co mmon 00:00:00 00:00:00 VISIT [facility] PT - [facility] LEVEL 2 [facility] 2022-02-02 2022-02-02 (TEL) STLMLC STLMLC [id number] Co [facility] 00:00:00 00:00:00 [facility] 2022-01-04 2022-01-04 (TEL) STLMLC STLMLC [id number] Co [facility]mon 00:00:00 00:00:00 [facility] 2021-12-31 2021-12-31 (TEL) STLMLC STLMLC [id number] [facility]mon 00:00:00 00:00:00 [facility] 2021-12-14 2021-12-14 (TEL) STLMLC STLMLC [id number] Co [facility] 00:00:00 00:00:00 [facility] 2021-12-11 2021-12-11 OFFICE STLMLC STLMLC [id number] [facility] 00:00:00 00:00:00 VISIT Spirit ESTAB PT - [facility] LEVEL 2 [facility] 2021-12-10 2021-12-10 (TEL) STLMLC STLMLC [id number] Co mmon 00:00:00 00:00:00 [facility] 2021-11-26 2021-11-26 OFFICE STLMLC STLMLC [id number] Co [facility] 00:00:00 00:00:00 VISIT EST Spir it PT LEVEL 3 - [facility] 2021-10-09 2021-10-09 OFFICE STLMLC STLMLC [id number] Co [facility]mon 00:00:00 00:00:00 VISIT EST Spir it PT LEVEL 3 - [facility] 2021-10-08 2021-10-08 (TEL) STLMLC STLMLC [id number] Co mmon 00:00:00 00:00:00 [facility] 2021-09-23 2021-09-23 (COVID STLMLC STLMLC [id number] Co mmon 00:00:00 00:00:00 Inj) COVID Spi rit [facility] 2021-08-26 2021-08-26 OFFICE STLMLC STLMLC [id number] Co mmon 00:00:00 00:00:00 VISIT EST Spir it PT LEVEL 3 [facility] 2021-08-26 2021-08-26 (TEL) STLMLC STLMLC [id number] Co mmon 00:00:00 00:00:00 [facility] 2021-08-10 2021-08-10 (TEL) STLMLC STLMLC [id number] Co mmon 00:00:00 00:00:00 [facility] 2021-07-14 2021-07-14 WELCOME TO STLMLC STLMLC [id number] Common 00:00:00 00:00:00 MEDICARE Spiri t PREV PHY - CHI EXAM [facility] 2021-06-11 2021-06-11 Nurse Therapy, Adc Covid Infusion [facility] [id number] Univers 14:11:49 15:11:49 Visit Jose Carlos Terencevijaya Morillo [id number] [facility]y of [place] [id number] [facility] [id number] [place] [id number] [place] 2021-06-11 2021-06-11 Outpatient R JOSE CARLOS, [facility] [id number] Univers 15:00:00 15:00:00 TERENCE ity of [facility] 2021-06-11 2021-06-11 Orders Doctor SOLO [id number] Univers 00:00:00 00:00:00 Only Unassigned, MAX [id number] ity of [facility] [id number] Jose [id number] [facility] 009 [address] 2021-06-01 2021-06-01 Outpatient STLMLC STLMLC [id number] Common 00:00:00 00:00:00 [facility] 2021-06-01 2021-06-01 Outpatient STLMLC STLMLC [id number] Common 00:00:00 00:00:00 [facility] 2021-05-28 2021-05-28 Outpatient STLMLC STLMLC [id number] Common 00:00:00 00:00:00 [facility] 2021-05-04 2021-05-04 Outpatient STLMLC STLMLC [id number] Common 00:00:00 00:00:00 [facility] 2020-08-20 2020-08-20 Outpatient R RADIOLOGY [facility] [id number] Univers 10:22:08 23:59:00 ity of [facility] 2020-08-20 2020-08-20 Hospital Radiology [facility] [id number] Univers 10:22:08 23:59:00 Encounter Ilia [id number] [facility] [place] [id number] [facility] [place] [id number] [facility] 800 [address] 2020-08-20 2020-08-20 Orders Doctor BANDA [id number] Univers 00:00:00 00:00:00 Only Unassigned, MAX [id number] ity of [place] [facility] [id number] Jose as [id number] [place] [address] [place] 2019-06-11 2019-06-11 Outpatient Wendy Joya [id number] Common 11:53:00 11:53:00 [facility] 2019-06-06 2019-06-06 Out[facility] [id number] Common 09:30:00 09:30:00 t [facility] 2019-05-28 2019-05-28 Outpatient [place] [facility]anda [facility] [id number] Common 09:24:00 09:24:00 t [facility] Sp[facility] t [facility] 2019-05-25 2019-05-25 Outpatient [facility] [id number] Common 09:30:00 09:30:00 t [facility] 2019-05-17 2019-05-17 Outpatient [facility] [id number] Common 08:59:00 08:59:00 t [facility] 2019-05-15 2019-05-15 Outpatient [facility] [id number] Common 14:30:00 14:30:00 t [facility] 2019-04-19 2019-04-19 Outpatient [facility] [id number] Common 08:30:00 08:30:00 t [facility] 2018-01-09 2018-01-09 Outpatient [place] 13 [id number] Common 14:30:00 14:30:00 t [facility] - [facility] Results Test Description Test Time Test Comments Results Result Comments Source Urine Culture, Routine 2022-08-12 00:00:00 Test Item Value Reference Range Interpretation Comme nts Urine Culture, Routine (test code = 630-4) Final report A
--- NOTE | 2023-01-11 10:16 | RAD REPORT ---
EXAM DESCRIPTION: Roman Morales And Osman (2 Views)01/11/2023 10:01 am CLINICAL HISTORY: Cough COMPARISON: 2021 FINDINGS: The lungs appear clear of acute infiltrate. The heart is normal size IMPRESSION: No acute abnormalities displayed
[2023-01-11 10:29] LABS: Absolute Lymphocytes (CBC) 1.1 K/uL (0.7-4.9); Hematocrit 38.9 % (36.0-45.0); Lymphocytes % 18.2 % (15.3-44.8); MCV 90.3 fL (80-100); MPV 8.6 fL (7.6-11.3)
[2023-01-11 10:47] LABS: Potassium 4.4 mEq/L (3.5-5.1); Troponin High Sensitivity 7.1 pg/mL (<58.9)
--- NOTE | 2023-01-11 12:59 | EDPHYS ---
Physician Documentation [facility] Name: Celeste Samaniego Age: 67 yrs Sex: Female : 1955 Arrival Date: 01/11/2023 Time: 09:35 Bed 6 Private MD: ED Physician Jason Goodwin HPI: 01/11 10:48 This 67 yrs old Female presents to ER via Ambulatory with complaints of Headache, Chest kb Pain, Shortness Of Breath, Cough. 10:49 The patient or guardian reports cough, that is intermittent, described as mild, kb difficulty breathing, flu symptoms, low-grade fever. Onset: The symptoms/episode began/occurred 5 day(s) ago. Severity of symptoms: At their worst the symptoms were mild, moderate, in the emergency department the symptoms are unchanged. Modifying factors: The symptoms are alleviated by nothing, the symptoms are aggravated by nothing. Associated signs and symptoms: Pertinent positives: fever, rhinorrhea, sore throat, Pertinent negatives: chest pain, diarrhea, ear ache, nausea, vomiting. The patient has not experienced similar symptoms in the past. The patient has been recently seen at an urgent care. Pt reports cough, congestion, shortness of breath, headache, low grade fever, and chest pain with cough for 5 days. Was seen at 3 days ago, tested negative for flu and covid. Given a shot of rocephin and prescription for tesselon perles and augmentin. States symptoms have persisted so she came here. Reports fever and cough have gotten better. Historical: - Allergies: 09:49 Codeine; vg1 09:49 mushrooms; vg1 - PMHx: 09:49 Diabetes - NIDDM; Hyperlipidemia; Hypertension; Hypothyroidism; vg1 - Immunization history:: Client reports receiving the 2nd dose of the Covid vaccine. - Social history:: Smoking status: Patient denies any tobacco usage or history of. ROS: 10:46 Abdomen/GI: Negative for abdominal pain, nausea, vomiting, diarrhea, and constipation. kb 10:46 Constitutional: Positive for fever, malaise. 10:46 ENT: Positive for rhinorrhea, sore throat. 10:46 Cardiovascular: Positive for chest pain, with cough. 10:46 Respiratory: Positive for cough, shortness of breath. 10:46 Neuro: Positive for headache. 10:46 All other systems are negative. Exam: 10:46 Constitutional: This is a well developed, well nourished patient who is awake, alert, kb and in no acute distress. Head/Face: Normocephalic, atraumatic. ENT: Moist Mucous membranes Cardiovascular: Regular rate and rhythm with a normal S1 and S2. No gallops, murmurs, or rubs. No pulse deficits. Respiratory: Respirations even and unlabored. No increased work of breathing. Talking in full sentences Skin: Warm, dry with normal turgor. Normal color. MS/ Extremity: Pulses equal, no cyanosis. Neurovascular intact. Full, normal range of motion. Neuro: Awake and alert, GCS 15, oriented to person, place, time, and situation. Moves all extremities. Normal gait. Vital Signs: 09:47 BP 141 / 60; Pulse 78; Resp 16; Temp 98.9(O); Pulse Ox 97% on R/A; Weight 99.79 kg; vg1 Height 5 ft. 3 in. ; Pain 6/10; 11:00 BP 128 / 50; Pulse 77; Resp 18; Pulse Ox 98% ; db 12:00 BP 137 / 62; Pulse 74; Resp 16; Pulse Ox 93% on R/A; ss 13:00 BP 171 / 74; Pulse 74; Resp 18; Pulse Ox 95% on R/A; db 14:00 BP 149 / 69; Pulse 74; Resp 18; Pulse Ox 98% on R/A; db 09:47 Body Mass Index 38.97 (99.79 kg, 160.02 cm) vg1 09:47 Pain Scale: Adult vg1 MDM: 09:40 Patient medically screened. kb 10:46 Data reviewed: vital signs, nurses notes. kb 12:58 Differential Diagnosis: Bronchitis Influenza Upper Respiratory Infection Pneumonia. kb Counseling: I had a detailed discussion with the patient and/or guardian regarding: the historical points, exam findings, and any diagnostic results supporting the discharge/admit diagnosis, lab results, radiology results, the need for outpatient follow up, a family practitioner, to return to the emergency department if symptoms worsen or persist or if there are any questions or concerns that arise at home. 01/11 09:47 Order name: SARS-COV-2 RT PCR; Complete Time: 11:04 kb 01/11 09:47 Order name: Flu; Complete Time: 10:52 kb 01/11 09:47 Order name: CBC with Diff; Complete Time: 10:31 kb 01/11 09:47 Order name: Basic Metabolic Panel; Complete Time: 10:52 kb 01/11 09:47 Order name: Troponin HS; Complete Time: 10:52 kb 01/11 09:47 Order name: Chest Pa And Lat (2 Views) XRAY; Complete Time: 10:18 kb 01/11 09:47 Order name: EKG; Complete Time: 09:48 kb 01/11 09:47 Order name: IV Start; Complete Time: 12:42 kb 01/11 09:47 Order name: EKG - Nurse/Tech; Complete Time: 12:42 kb Administered Medications: 13:05 Drug: NS 0.9% IV 1000 ml Route: IV; Rate: 1000 ml; Site: right antecubital; db 15:29 Follow up: Response: No adverse reaction; IV Status: Completed infusion; IV Intake: db 1000ml 13:05 Drug: Ketorolac IVP 15 mg Route: IVP; Site: right antecubital; db 14:20 Follow up: Response: No adverse reaction db Disposition: 15:35 Co-signature as Attending Physician, Jason Goodwin MD I reviewed the patient's care rn provided by the Advanced Practice Provider and agree with the diagnosis and treatment plan. Disposition Summary: 01/11/23 12:58 Discharge Ordered Location: Home kb Condition: Stable kb Diagnosis - Acute upper respiratory infection, unspecified kb Followup: kb - With: Emergency Department - When: As needed - Reason: Worsening of condition Followup: kb - With: Private Physician - When: 2 - 3 days - Reason: Recheck today's complaints, Continuance of care, Re-evaluation by your physician Discharge Instructions: - Discharge Summary Sheet kb - Upper Respiratory Infection, Adult, [id number] kb - Viral Respiratory Infection, [id number] kb Forms: - Medication Reconciliation Form kb - Thank You Letter kb - Antibiotic Education kb - Prescription Opioid Use kb Signatures: Dispatcher [employer] Jyoti Velasco, KETTLE SKIMMER-C KETTLE SKIMMER-Jason Yates MD MD rn Garcia, Victoria, RN RN 1 Rosemarie Castillo RN RN db
--- NOTE | 2023-01-11 12:59 | ER ---
Nurse's Notes [facility] Name: Celeste Samaniego Age: 67 yrs Sex: Female : 1955 Arrival Date: 01/11/2023 Time: 09:35 Bed 6 Private MD: Diagnosis: Acute upper respiratory infection, unspecified Presentation: 01/11 09:47 Chief complaint: Patient states: h/a, CP with cough, nasal drainage and SOB since vg1 Tuesday. Also c/o sore throat, fever and chills. Coronavirus screen: Vaccine status: Patient reports receiving the 2nd dose of the covid vaccine. Client denies travel out of the [place] in the last 14 days. Ebola Screen: Patient negative for fever greater than or equal to 101.5 degrees Fahrenheit, and additional compatible Ebola Virus Disease symptoms Patient denies exposure to infectious person. Patient denies travel to an Ebola-affected area in the 21 days before illness onset. Initial Sepsis Screen: Does the patient meet any 2 criteria? No. Patient's initial sepsis screen is negative. Does the patient have a suspected source of infection? No. Patient's initial sepsis screen is negative. Risk Assessment: Do you want to hurt yourself or someone else? Patient reports no desire to harm self or others. Onset of symptoms was January 07, 2023. 09:47 Method Of Arrival: Ambulatory vg1 09:47 Acuity: KITA 3 vg1 Triage Assessment: 09:49 General: Appears in no apparent distress. uncomfortable, Behavior is calm, cooperative. vg1 Pain: Complains of pain in generaliz body Pain currently is 6 out of 10 on a pain scale. Pain began 01/07/23. Pain: Also complains of shortness of breath. Neuro: Level of Consciousness is awake, alert, obeys commands, Oriented to person, place, time, situation. Respiratory: Reports shortness of breath on exertion cough that is productive, Airway is patent Respiratory effort is even, unlabored. 10:00 Headache History: The patient has had previous headaches and this one is similar to db previous episodes. Historical: - Allergies: 09:49 Codeine; vg1 09:49 mushrooms; vg1 - PMHx: 09:49 Diabetes - NIDDM; Hyperlipidemia; Hypertension; Hypothyroidism; vg1 - Immunization history:: Client reports receiving the 2nd dose of the Covid vaccine. - Social history:: Smoking status: Patient denies any tobacco usage or history of. Screenin:[address] [facility] ED Fall Risk Assessment (Adult) History of falling in the last 3 months, db including since admission No falls in past 3 months (0 pts) Confusion or Disorientation No (0 pts) Intoxicated or Sedated No (0 pts) Impaired Gait Mobility Assist Device Used No (0 pt) Altered Elimination No (0 pt) Score/Fall Risk Level 0 - 2 = Low Risk Oriented to surroundings, Maintained a safe environment. Abuse screen: Denies threats or abuse. Denies injuries from another. Nutritional screening: No deficits noted. Tuberculosis screening: No symptoms or risk factors identified. Assessment: 09:55 Reassessment: Patient appears in no apparent distress at this time. pt to xray. db 10:15 Cardiovascular: Reports chest pain. db 10:15 Reassessment: Patient appears in no apparent distress at this time. Patient and/or db family updated on plan of care and expected duration. Pain level reassessed. Patient is alert, oriented x 3, equal unlabored respirations, skin warm/dry/pink. 11:00 Reassessment: Patient appears in no apparent distress at this time. Patient and/or db family updated on plan of care and expected duration. Pain level reassessed. Patient is alert, oriented x 3, equal unlabored respirations, skin warm/dry/pink. 12:12 Reassessment: patient ambulatory to restroom. Reassessment: Patient appears in no ss apparent distress at this time. Patient and/or family updated on plan of care and expected duration. Pain level reassessed. Patient is alert, oriented x 3, equal unlabored respirations, skin warm/dry/pink. General: Appears in no apparent distress. comfortable, Behavior is calm, cooperative. Pain: Complains of pain in face. 13:00 Reassessment: Patient appears in no apparent distress at this time. Patient and/or db family updated on plan of care and expected duration. Pain level reassessed. Patient is alert, oriented x 3, equal unlabored respirations, skin warm/dry/pink. General: Appears in no apparent distress. comfortable, Behavior is calm, cooperative. 14:20 Reassessment: Patient appears in no apparent distress at this time. Patient and/or db family updated on plan of care and expected duration. Pain level reassessed. Patient is alert, oriented x 3, equal unlabored respirations, skin warm/dry/pink. Patient states feeling better. Patient states symptoms have improved. Neuro: No deficits noted. Level of Consciousness is awake, alert, obeys commands, Oriented to person, place, time, situation. GI: Abdomen is flat, non-distended. Vital Signs: 09:47 BP 141 / 60; Pulse 78; Resp 16; Temp 98.9(O); Pulse Ox 97% on R/A; Weight 99.79 kg; vg1 Height 5 ft. 3 in. ; Pain 6/10; 11:00 BP 128 / 50; Pulse 77; Resp 18; Pulse Ox 98% ; db 12:00 BP 137 / 62; Pulse 74; Resp 16; Pulse Ox 93% on R/A; ss 13:00 BP 171 / 74; Pulse 74; Resp 18; Pulse Ox 95% on R/A; db 14:00 BP 149 / 69; Pulse 74; Resp 18; Pulse Ox 98% on R/A; db 09:47 Body Mass Index 38.97 (99.79 kg, 160.02 cm) vg1 09:47 Pain Scale: Adult vg1 ED Course: 09:37 Patient arrived in ED. am2 09:40 Jy[facility] Law [facility]C [facility]. kb 09:40 Jason Goodwin MD is Attending Physician. kb 09:49 Triage completed. vg1 09:49 Arm band placed on. vg1 09:55 Rosemarie Castillo, RN is Primary Nurse. db 10:02 Chest Pa And Lat (2 Views) XRAY In Process Unspecified. EDMS 10:20 Inserted saline lock: 22 gauge in right antecubital area, using aseptic technique. db Blood collected. 10:30 Patient has correct armband on for positive identification. Bed in low position. Call db light in reach. Side rails up X 1. Client placed on continuous cardiac and pulse oximetry monitoring. NIBP monitoring applied. Warm blanket given. 14:20 No provider procedures requiring assistance completed. IV discontinued, intact, db bleeding controlled, Pressure dressing applied. Administered Medications: 13:05 Drug: NS 0.9% IV 1000 ml Route: IV; Rate: 1000 ml; Site: right antecubital; db 15:29 Follow up: Response: No adverse reaction; IV Status: Completed infusion; IV Intake: db 1000ml 13:05 Drug: Ketorolac IVP 15 mg Route: IVP; Site: right antecubital; db 14:20 Follow up: Response: No adverse reaction db Medication: 14:00 VIS not applicable for this client. db Intake: 15:29 IV: 1000ml; Total: 1000ml. db Outcome: 12:58 Discharge ordered by MD. dietrich 14:20 Discharged to home via wheelchair, with family. db 14:20 Condition: stable 14:20 Discharge instructions given to patient, family, Instructed on discharge instructions, follow up and referral plans. 15:29 Patient left the ED. db Signatures: Dispatcher [employer] EDJyoti Rosario, TRANSPLANT SURGEON-C TRANSPLANT SURGEON-Jennifer Kunz, RN RN Hyun Balbuena Victoria RN RN vg1 Rosemarie Castillo RN RN db
[2023-01-11] MEDS ORDERED: KETOROLAC 30 MG/ML INJ ONE (13:25)
[2023-01-11] MEDS ORDERED: NA CHLORIDE 0.9% 1,000 ML ONE (13:25)
[2023-01-11 16:12] VITALS: TEMP 98.9
[2023-01-11 16:29] VITALS: BP 149/69; O2SAT 98
--- NOTE | 2023-01-12 14:09 | EKG ---
Test Date: 2023-01-11 Test Time: 12:29:34 Title Clerk Automobile: CLAUDE MEASUREMENT RESULTS: Intervals: Rate: 74 [place]: 144 QRSD: 70 QT: 394 QTc: 437 [place]: P: 49 NJ: 144 QRS: 53 T: 55 INTERPRETIVE STATEMENTS: Normal sinus rhythm Normal ECG Compared to ECG 07/22/2021 14:42:02 No significant changes Electronically Signed On 01-12-23 14:07:06 CDT by Singh Coleman
== END 2023-01-11 15:29 | disposition home or self-care (01) ==
LOC: ER 09:35
DX: J06.9 Acute upper respiratory infection, unspecified (principal); R51.9 Headache, unspecified; Z20.822 Contact with and (suspected) exposure to COVID-19; I10 Essential (primary) hypertension; Z88.5 Allergy status to narcotic agent; Z91.018 Allergy to other foods
CPT/HCPCS: 85025; 80048; 36415; 84484; 87804 ×2; 71046; U0003; J7030; 93005

== ENCOUNTER → 2023-11-02 | Emergency (ER) | payer OTHER ==
[~2023-11-02] MED LIST: FENTANYL CITR 100 MCG/2 ML ONE; ONDANSETRON 4 MG/2 ML VIAL ONE
[2023-11-02 09:49] LABS: Absolute Lymphocytes (CBC) 2.3 K/uL (0.7-4.9); Hematocrit 35.3 % (36.0-45.0); Lymphocytes % 25.4 % (15.3-44.8); MCV 88.4 fL (80-100); MPV 8.9 fL (7.6-11.3); Platelets 332 thou/uL (152-406); RBC Red Blood Cell Count 3.99 M/uL (3.86-4.86)
[2023-11-02 09:53] LABS: Specific Gravity 1.023 (1.005-1.030); Urine Bacteria None Seen /HPF (<20); Urine Bilirubin NEGATIVE (Negative); Urine Blood 2+ (Negative); Urine Clarity Extremely Turbid (Clear); Urine Color Light-Yellow (Yellow); Urine Glucose 3+ (Negative); Urine Mucus Slight /HPF (None Seen); Urine Protein 1+ (Negative); Urine RBC >50 /HPF (None Seen); Urine Urobilinogen Normal (Normal)
[2023-11-02 10:18] LABS: Albumin 3.2 g/dL (3.4-5.0); Bilirubin Total 0.2 mg/dL (0.2-1.0); Potassium 4.4 mEq/L (3.5-5.1); Protein, Total 7.1 g/dL (6.4-8.2)
--- NOTE | 2023-11-02 10:51 | RAD REPORT ---
EXAM DESCRIPTION: CT - Abdomen Pelvis W Contrast - 11/02/2023 10:42 am CLINICAL HISTORY: Abdominal pain COMPARISON: CT abdomen 2022 TECHNIQUE: Computed axial tomography of the abdomen pelvis was obtained. 100 cc Isovue-300 was admin istered intravenously. Oral contrast was not requested which limits evaluation of bowel and appendix All CT scans are performed using dose optimization technique as appropriate and may include automated exposure control or mA/KV adjustment according to patient size. FINDINGS: The liver, spleen, pancreas, adrenal and kidneys appear unremarkable. There is no evidence of diverticulitis. A normal appendix Bladder is decompressed. Wall appears thickened IMPRESSION: Bladder is decompressed. However, the wall appears thickened. This may indicate inflamma tion
--- NOTE | 2023-11-02 10:52 | RAD REPORT ---
EXAM DESCRIPTION: US - Transvaginal Study Probe - 11/02/2023 10:32 am CLINICAL HISTORY: Pelvic pain COMPARISON: none FINDINGS: Evaluation of the uterus is suboptimal as the patient could not tolerate deep insertion of vaginal probe. No gross abnormality displayed Neither ovary seen secondary overlying bowel gas. The right and left adnexa unremarkable No significant free fluid is seen. IMPRESSION: No gross abnormality displayed
--- NOTE | 2023-11-02 11:26 | ER ---
Nurse's Notes [facility] Name: Celeste Samaniego Age: 68 yrs Sex: Female : 1955 Arrival Date: 11/02/2023 Time: 09:07 Bed 18 Private MD: Diagnosis: Pelvic and perineal pain Presentation: 11/02 09:10 Chief complaint: Patient states: stabbing pain in vaginal area, happens every 8 iw seconds, they were treating it like a UTI, she was having pain/burning with urination and frequent urination for 5 days before that, they started cipro yesterday . 09:10 Method Of Arrival: Ambulatory iw 09:10 Acuity: KITA 3 iw 09:12 Coronavirus screen: At this time, the client does not indicate any symptoms associated iw with coronavirus-19. Ebola Screen: Patient negative for fever greater than or equal to 101.5 degrees Fahrenheit, and additional compatible Ebola Virus Disease symptoms Patient denies exposure to infectious person. Patient denies travel to an Ebola-affected area in the 21 days before illness onset. No symptoms or risks identified at this time. Initial Sepsis Screen: Does the patient meet any 2 criteria? No. Patient's initial sepsis screen is negative. Does the patient have a suspected source of infection? No. Patient's initial sepsis screen is negative. Risk Assessment: Do you want to hurt yourself or someone else? Patient reports no desire to harm self or others. Historical: - Allergies: 09:14 Codeine; iw 09:14 mushrooms; iw - PMHx: 09:14 Diabetes - NIDDM; Hyperlipidemia; Hypertension; Hypothyroidism; iw - Immunization history:: Adult Immunizations up to date. - Social history:: Smoking status: Patient denies any tobacco usage or history of. Screenin: [facility] ED Fall Risk Assessment (Adult) Score/Fall Risk Level 0 - 2 = Low Risk. Abuse iw screen: Denies threats or abuse. Denies injuries from another. Nutritional screening: No deficits noted. Tuberculosis screening: No symptoms or risk factors identified. Assessment: 09:20 General: Appears uncomfortable, Behavior is cooperative. Pain: Complains of pain in iw vaginal area. Neuro: Level of Consciousness is awake, alert, obeys commands, Oriented to person, place, time, situation, Moves all extremities. Full function. Cardiovascular: Patient's skin is warm and dry. Respiratory: Respiratory effort is even, unlabored, Respiratory pattern is regular, symmetrical. GI: Abdomen is non-distended. : Reports burning with urination, pain in suprapubic area with urination, urinary frequency. Derm: Skin is intact, is healthy with good turgor. Musculoskeletal: Range of motion: intact in all extremities. Vital Signs: 09:12 BP 175 / 88; Pulse 72; Resp 18; Temp 97.5; Pulse Ox 100% on R/A; iw 09:48 BP 140 / 63; Pulse 68; Resp 18 S; Pulse Ox 97% on R/A; kc6 11:50 BP 107 / 45; Pulse 72; Resp 16; Pulse Ox 100% ; cp4 ED Course: 09:08 Patient arrived in ED. ec2 09:08 Sung Martinez MD is Attending Physician. ec2 09:11 Triage completed. iw 09:14 Arm band placed on. iw 09:31 Juana Strange RN is Primary Nurse. kc6 09:37 CMP Sent. ds4 09:37 CBC with Diff Sent. ds4 09:37 UAM Sent. ds4 09:37 Inserted saline lock: 22 gauge in right antecubital area, using aseptic technique. ds4 Blood collected. 09:47 Patient has correct armband on for positive identification. Placed in gown. Bed in low kc6 position. Call light in reach. Side rails up X2. Adult w/ patient. Client placed on continuous cardiac and pulse oximetry monitoring. NIBP monitoring applied. 09:47 Patient maintains SpO2 saturation greater than 95% on room air. kc6 09:54 Assist provider with pelvic exam: Set up pelvic tray. Performed by Sung Martinez MD kc6 Patient tolerated well. 10:00 Report given to Haylie Hall RN. kc6 10:33 Transvaginal Study Probe In Process Unspecified. EDMS 10:44 CT Abd/Pelvis - IV Contrast Only In Process Unspecified. EDMS 11:50 Provided Education on: pelvic pain. cp4 11:50 intact, bleeding controlled, No redness/swelling at site. Pressure dressing applied. cp4 Administered Medications: 09:47 Drug: fentaNYL (PF) IVP 100 mcg IVP once Route: IVP; Site: right antecubital; kc6 10:05 Follow up: Response: No adverse reaction; Pain is decreased; RASS: Alert and Calm (0) kc6 09:47 Drug: Ondansetron IVP 4 mg IVP once; over 2 minutes Route: IVP; Site: right antecubital;kc6 10:05 Follow up: Response: No adverse reaction kc6 Medication: 09:21 VIS not applicable for this client. iw Outcome: 11:25 Discharge ordered by MD. ec2 11:50 Discharged to home ambulatory, cp4 11:50 Condition: stable 11:50 Discharge instructions given to patient, Instructed on discharge instructions, follow up and referral plans. Demonstrated understanding of instructions, follow-up care, 11:51 Patient left the ED. cp4 Signatures: Dispatcher [employer] Christie Kay RN RN Heebrt Tripathi 4 Juana Strange RN RN kc6 Sung Martinez MD MD ec2 Potter, Christina cp4 Corrections: (The following items were deleted from the chart) 09:14 09:10 Chief complaint: Patient states: stabbing pain in vaginal area, happens every 8 iw seconds, they were treating it like a UTI, started cipro yesterday iw 09:17 09:12 BP 175 / 88; Pulse 72bpm; Resp 18bpm; Temp 97.5F; iw iw
--- NOTE | 2023-11-02 11:26 | EDPHYS ---
Physician Documentation [facility] Name: Celeste Samaniego Age: 68 yrs Sex: Female : 1955 Arrival Date: 11/02/2023 Time: 09:07 Bed 18 Private MD: ED Physician Sung Martinez HPI: 11/02 09:24 This 68 yrs old Female presents to ER via Ambulatory with complaints of ec2 Vaginal Pain. 09:24 Patient arrives today for 1 day of pelvic pain. Patient reports has been having some ec2 pain ongoing for 1 day, intermittent with no specific alleviating or exacerbating factors. Patient reports associated nausea without vomiting. Also reports that she is having some increased urinary frequency. Reports no fevers or chills, no cough or cold symptoms, reports no previous abdominal surgeries. Denies issues with bowels, denies issues with vaginal bleeding or discharge. Patient stated she called PCP and started on ciprofloxacin, has taken 1 dose for UTI. Historical: - Allergies: 09:14 Codeine; iw 09:14 mushrooms; iw - PMHx: 09:14 Diabetes - NIDDM; Hyperlipidemia; Hypertension; Hypothyroidism; iw - Immunization history:: Adult Immunizations up to date. - Social history:: Smoking status: Patient denies any tobacco usage or history of. ROS: 09:24 Constitutional: as per hpi ec2 Exam: 09:24 Constitutional: GEN: NAD Head: atraumatic Eyes: EOMI Ears: External ears are ec2 normal. CV: regular rate LUNGS: no respiratory distress ABD: non-distended, soft, tender in the suprapubic region, no guarding, not rigid SKIN: no evidence of rashes MSK: no evidence of trauma NEURO: moves all extremities equally Vital Signs: 09:12 BP 175 / 88; Pulse 72; Resp 18; Temp 97.5; Pulse Ox 100% on R/A; iw 09:48 BP 140 / 63; Pulse 68; Resp 18 S; Pulse Ox 97% on R/A; kc6 11:50 BP 107 / 45; Pulse 72; Resp 16; Pulse Ox 100% ; cp4 MDM: 09:19 Patient medically screened. ec2 09:24 Data reviewed: vital signs. ED course: Patient arrives today for evaluation of lower ec2 abdominal pain and pelvic pain. Examination remarkable for well-appearing nontoxic individual is otherwise in no acute distress with reassuring vital signs. Will obtain lab work, perform pelvic examination, give the patient fentanyl for pain control and obtain CT imaging. Currently evaluate reports that she is UTI/cystitis, low suspicion for appendicitis or ovarian pathology. . 09:54 ED course: Pelvic examination performed under nursing supervision, YVONNE Zhu. ec2 Erythema noted within the vaginal canal, no discharge appreciated, no active bleeding noted.. 10:40 ED course: Metabolic profile reassuring.. ec2 10:46 ED course: Urine is pertinent for leuk esterase and WBCs. Patient already on ec2 antibiotics, will have her continue this. . 11:15 ED course: CT abdomen pelvis shows bladder inflammation, this to be consistent with ec2 patient's known UTI which she has taken 1 dose of antibiotics for. Will have her continue this. Ultrasound shows no acute abnormality. . 11:24 ED course: On reassessment patient is well-appearing in no acute distress. Will ec2 discharge home. Return precautions given.. 11/02 09:19 Order name: CBC with Diff; Complete Time: 09:54 ec2 11/02 09:19 Order name: CMP; Complete Time: 10:40 ec2 11/02 09:19 Order name: UAM; Complete Time: 10:06 ec2 11/02 09:58 Order name: Urine Culture EDMS 11/02 09:19 Order name: CT Abd/Pelvis - IV Contrast Only; Complete Time: 11:13 ec2 11/02 10:16 Order name: Transvaginal Study Probe; Complete Time: 11:13 EDMS 11/02 09:23 Order name: Pelvic Exam Setup; Complete Time: 09:47 ec2 Administered Medications: 09:47 Drug: fentaNYL (PF) IVP 100 mcg IVP once Route: IVP; Site: right antecubital; kc6 10:05 Follow up: Response: No adverse reaction; Pain is decreased; RASS: Alert and Calm (0) kc6 09:47 Drug: Ondansetron IVP 4 mg IVP once; over 2 minutes Route: IVP; Site: right antecubital;kc6 10:05 Follow up: Response: No adverse reaction kc6 Disposition Summary: 11/02/23 11:25 Discharge Ordered Notes: Location: Home ec2 Condition: Stable ec2 Diagnosis - Pelvic and perineal pain ec2 Followup: ec2 - With: Private Physician - When: - Reason: Re-evaluation by your physician Discharge Instructions: - Discharge Summary Sheet ec2 - Pelvic Pain, Female, [id number] ec2 Forms: - Medication Reconciliation Form ec2 - Thank You Letter ec2 - Antibiotic Education ec2 - Prescription Opioid Use ec2 - Patient Portal Instructions ec2 - Leadership Thank You Letter ec2 Signatures: Dispatcher [employer] [facility] Christie Sherman RN RN iw Juana Strange RN RN kc6 Sung Martinez MD MD ec2 [facility] cp4 Corrections: (The following items were deleted from the chart) 09:26 09:24 Patient arrives today for 1 day of pelvic pain. Patient reports has been having ec2 some pain ongoing for 1 day, intermittent with no specific alleviating or exacerbating factors. Patient reports associated nausea without vomiting. Also reports that she is having some increased urinary frequency. Reports no fevers or chills, no cough or cold symptoms, reports no previous abdominal surgeries.. ec2 10:16 10:06 Pelvis Complete+US.RAD.BRZ ordered. [facility] 10:17 09:24 Patient arrives today for 1 day of pelvic pain. Patient reports has been having ec2 some pain ongoing for 1 day, intermittent with no specific alleviating or exacerbating factors. Patient reports associated nausea without vomiting. Also reports that she is having some increased urinary frequency. Reports no fevers or chills, no cough or cold symptoms, reports no previous abdominal surgeries. Denies issues with bowels, denies issues with vaginal bleeding or discharge.. ec2 10:17 09:24 Patient arrives today for 1 day of pelvic pain. Patient reports has been having ec2 some pain ongoing for 1 day, intermittent with no specific alleviating or exacerbating factors. Patient reports associated nausea without vomiting. Also reports that she is having some increased urinary frequency. Reports no fevers or chills, no cough or cold symptoms, reports no previous abdominal surgeries. Denies issues with bowels, denies issues with vaginal bleeding or discharge. Patient stated she called PCP and started on ciprofloxacin, has taken 1 dose.. ec2
[2023-11-02 12:05] VITALS: BP 107/45; TEMP 97.5; O2SAT 100
== END ==
LOC: ER 09:07
DX: R10.2 Pelvic and perineal pain (principal); E11.9 Type 2 diabetes mellitus without complications; I10 Essential (primary) hypertension; Z88.5 Allergy status to narcotic agent; Z91.018 Allergy to other foods
CPT/HCPCS: 87088; 85025; 81001; 87086; 36415; 80053; 74177; 76830; Q9967; J3010; J2405